=== PATIENT | male | born 1945 | race Caucasian/White ===

== ENCOUNTER → 2017-08-30 15:55 | Outpatient (CLI) | payer MEDICARE, OTHER, SELFPAY ==
[2017-08-30 17:15] LABS: Absolute Lymphocyte Count 2.55 X10^3/ul (0.83-4.51); Absolute Neutrophil Count 5.1 X10^3/uL (2.0-7.7); Basophil# 0.08 X10^3/uL; Basophil% 0.9 % (0-1); Eosinophil# 0.35 X10^3/uL; Eosinophils% 3.8 % (0-5); Hematocrit 47.6 % (40-54); Hemoglobin 15.9 g/dl (13.0-16.5); Lymphocyte # 2.55 X10^3/ul (4.0); Mean Corp Hgb Conc 33.4 g/gl (32-36); Mean Corpuscular Hgb 31.2 pg (27.0-32.0); Mean Corpuscular Volume 93.5 fL (80-94); Mean Platelet Vol. 10.6 fl (6.2-12.0); Monocyte# 0.98 X10^3/uL; Monocyte% 10.7 % (0-10); Neutrophil # 5.12 X10^3/uL (2.7-7.7); Neutrophil % 56.2 % (47-70); Platelet Count 284 K/mm3 (150-450); RBC Distribution Width CV 14.6 % (11.6-14.6); RBC Distribution Width SD 48.3 fl (35.1-43.9); Red Blood Count 5.09 M/mm3 (4.6-6.2); White Blood Count 9.1 K/mm3 (4.4-11.0)
[2017-08-30 17:21] LABS: POSITIVE COUNT NO; POSITIVE DIFFERENTIAL NO; POSITIVE MORPHOLOGY NO
[2017-08-30 17:38] LABS: Vitamin D,25 Hydroxy 29.9 ng/mL (29.95-100.01)
[2017-08-30 17:45] LABS: ALB/GLOB Ratio 0.7 RATIO (0.9-2.4); AST(SGOT) 32 U/L (15-37); Alanine Aminotransfer ALT/SGPT 45 U/L (16-61); Albumin, Serum 3.2 g/dL (3.2-5.0); Alkaline Phosphatase 93 U/L (45-117); Anion Gap 10 (5-15); BUN 13 mg/dL (7-18); BUN/Creat Ratio 11.7 RATIO (10-20); Calcium,Total 8.6 mg/dL (8.5-10.1); Chloride 99 mmol/L (98-107); Creatinine, Serum 1.11 mg/dL (0.70-1.30); EST Glomerular Filtration Rate 69 mL/min (>60); Est Glom Filt Rate - Afr Amer 84 mL/min (>60); Globulin 4.4 g/dL (2.2-4.2); Glucose 201 mg/dL (74-106); Potassium 3.8 mmol/L (3.5-5.1); Protein, Total 7.6 g/dL (6.4-8.2); Sodium Level 134 mmol/L (136-145); Thyroid Stim Hormone (TSH) 0.67 uIU/mL (0.358-3.74); Uric Acid 6.4 mg/dL (3.5-7.2)
[2017-09-01 11:02] LABS: Hep C Antibodies 0.3 s/co ratio (0.0-0.9)
== END ==
PROVIDERS: Family Provider Family Medicine Geriatric Medicine; PCP Family Medicine Geriatric Medicine; Visit Provider Family Medicine Geriatric Medicine
DX: E11.9 Type 2 diabetes mellitus without complications (principal); E55.9 Vitamin D deficiency, unspecified; I10 Essential (primary) hypertension; M10.9 Gout, unspecified; Z13.89 Encounter for screening for other disorder
CPT/HCPCS: 36415; 80053; 82306; 84443; 84550; 85025; 86803

== ENCOUNTER 2018-01-28 10:29 | Emergency (ER) | payer MEDICARE, OTHER, SELFPAY ==
[2018-01-28 10:29] VITALS: BP 139/72; PULSE 56; RESP 14; TEMP 36.1; O2SAT 97; BMI 31.3
--- NOTE | 2018-01-28 10:41 | RAD_ITS ---
STUDY: X-RAY - RIGHT ANKLE REASON FOR EXAM: Male, 72 years old. Pain and swelling following a fall. TECHNIQUE: 4 view(s) of the ankle. COMPARISON: None. FINDINGS: Normal visualized distal tibia and fibula. Normal medial and lateral malleoli. Normal tibiotalar articulation and ankle mortise. Plantar spur. The visualized subtalar, talonavicular, calcaneocuboid and tarsal articulations are normal. Soft tissue swelling. RAD/Ankle min 3 Views IMPRESSION: Plantar spur. Soft tissue swelling. Electronically Signed: Atif Rodriguez MD at 11:05 EDT Tel [phone], Service support ,
--- NOTE | 2018-01-28 10:43 | ED.VISSUMM ---
- ER Visit Summary Date of Service: 01/28/18 Chief Complaint: Patient twisted his ankle about 6 days ago History of Present Illness: The patient is a 72 M with above complaints and localized right ankle pain. He has no other symptoms. No other injuries he has no leg edema no proximal fibular tenderness and no foot pain. Physical Examination: Otherwise unremarkable exam patient has no calf tenderness no edema he has localized swelling both laterally and medially of his right ankle, most of his pain is over the lateral malleolar region. He has no proximal fifth metatarsal tenderness no proximal fibular tenderness. Neurovascularly intact. Emergency Department Course and Treatment: She is unremarkable. Patient will be given an Aircast. He has been able to walk on it all week. Discharge in stable condition Impression: Ankle sprain This note was generated with [employer] dictation software. It may contain incorrect words, spelling, and punctuation that were not noted in review of the chart prior to signing ED Disposition - Plan for ED Patient: Disposition: Home or Assisted Living Chief Complaint: Lower Extremity Injury Instructions: ED Sprain Ankle W X Ray Referrals: Dalton Wliey Chi, MD [Primary Care Provider] - 3-5 Days
--- NOTE | 2018-01-28 10:46 | ED.DCSUM_ITS ---
- ER Visit Summary Date of Service: 01/28/18 Chief Complaint: Patient twisted his ankle about 6 days ago History of Present Illness: The patient is a 72 M with above complaints and localized right ankle pain. He has no other symptoms. No other injuries he has no leg edema no proximal fibular tenderness and no foot pain. Physical Examination: Otherwise unremarkable exam patient has no calf tenderness no edema he has localized swelling both laterally and medially of his right ankle, most of his pain is over the lateral malleolar region. He has no proximal fifth metatarsal tenderness no proximal fibular tenderness. Neurovascularly intact. Emergency Department Course and Treatment: She is unremarkable. Patient will be given an Aircast. He has been able to walk on it all week. Discharge in stable condition Impression: Ankle sprain This note was generated with [employer] dictation software. It may contain incorrect words, spelling, and punctuation that were not noted in review of the chart prior to signing ED Disposition - Plan for ED Patient: Disposition: Home or Assisted Living Chief Complaint: Lower Extremity Injury Instructions: ED Sprain Ankle W X Ray Referrals: Dalton Wiley Chi, MD [Primary Care Provider] - 3-5 Days
--- NOTE | 2018-01-28 11:24 | NURSING ---
NO LW OR POA
== END 2018-01-28 11:53 | disposition home or self-care (01) ==
PROVIDERS: Emergency Provider Emergency Medicine; Family Provider Family Medicine Geriatric Medicine; PCP Family Medicine Geriatric Medicine
DX: S93.401A Sprain of unspecified ligament of right ankle, initial encounter (principal); E11.9 Type 2 diabetes mellitus without complications; I10 Essential (primary) hypertension; E78.00 Pure hypercholesterolemia, unspecified; M10.9 Gout, unspecified; Z79.82 Long term (current) use of aspirin; Z79.84 Long term (current) use of oral hypoglycemic drugs; Z79.899 Other long term (current) drug therapy; X50.1XXA Overexertion from prolonged static or awkward postures, initial encounter; Y93.9 Activity, unspecified; Y92.89 Other specified places as the place of occurrence of the external cause; Y99.8 Other external cause status
CPT/HCPCS: 73610; 99282

== ENCOUNTER → 2018-03-03 09:53 | Outpatient (CLI) | payer MEDICARE, OTHER, SELFPAY ==
[2018-03-03 13:41] LABS: Absolute Lymphocyte Count 1.96 X10^3/ul (0.83-4.51); Absolute Neutrophil Count 6.2 X10^3/uL (2.0-7.7); Basophil# 0.06 X10^3/uL; Basophil% 0.7 % (0-1); Eosinophil# 0.26 X10^3/uL; Eosinophils% 2.8 % (0-5); Hematocrit 45.3 % (40-54); Hemoglobin 14.6 g/dl (13.0-16.5); Lymphocyte # 1.96 X10^3/ul (4.0); Lymphocyte % 21.3 % (19-41); Mean Corp Hgb Conc 32.2 g/gl (32-36); Mean Corpuscular Hgb 29.7 pg (27.0-32.0); Mean Corpuscular Volume 92.1 fL (80-94); Mean Platelet Vol. 10.9 fl (6.2-12.0); Monocyte# 0.71 X10^3/uL; Monocyte% 7.7 % (0-10); Neutrophil # 6.19 X10^3/uL (2.7-7.7); Neutrophil % 67.2 % (47-70); Platelet Count 276 K/mm3 (150-450); Red Blood Count 4.92 M/mm3 (4.6-6.2); White Blood Count 9.2 K/mm3 (4.4-11.0)
[2018-03-03 13:42] LABS: POSITIVE COUNT NO; POSITIVE DIFFERENTIAL NO; POSITIVE MORPHOLOGY NO
[2018-03-03 13:56] LABS: ALB/GLOB Ratio 0.7 RATIO (0.9-2.4); AST(SGOT) 20 U/L (15-37); Alanine Aminotransfer ALT/SGPT 30 U/L (16-61); Albumin, Serum 3.2 g/dL (3.2-5.0); Alkaline Phosphatase 78 U/L (45-117); Anion Gap 11 (5-15); BUN 19 mg/dL (7-18); BUN/Creat Ratio 17.6 RATIO (10-20); Calcium,Total 8.8 mg/dL (8.5-10.1); Chloride 100 mmol/L (98-107); Creatinine, Serum 1.08 mg/dL (0.70-1.30); EST Glomerular Filtration Rate 71 mL/min (>60); Est Glom Filt Rate - Afr Amer 86 mL/min (>60); Globulin 4.4 g/dL (2.2-4.2); Glucose 196 mg/dL (74-106); Potassium 3.7 mmol/L (3.5-5.1); Protein, Total 7.6 g/dL (6.4-8.2); Sodium Level 138 mmol/L (136-145); Thyroid Stim Hormone (TSH) 0.76 uIU/mL (0.358-3.74); Uric Acid 8.5 mg/dL (3.5-7.2)
[2018-03-04 12:04] LABS: Vitamin D,25 Hydroxy 30.3 ng/mL (29.95-100.01)
== END ==
PROVIDERS: Family Provider Family Medicine Geriatric Medicine; PCP Family Medicine Geriatric Medicine; Visit Provider Family Medicine Geriatric Medicine
DX: E11.9 Type 2 diabetes mellitus without complications (principal); E55.9 Vitamin D deficiency, unspecified; I10 Essential (primary) hypertension; M10.9 Gout, unspecified
CPT/HCPCS: 36415; 80053; 82306; 84443; 84550; 85025

== ENCOUNTER 2018-03-30 05:25 | Day surgery (SDC) | payer MEDICARE, OTHER, SELFPAY ==
[2018-03-30] VITALS (8 sets, daily range): BP systolic 134–173; BP diastolic 74–101; PULSE 51–57; RESP 16–18; TEMP 36.6–37.2; O2SAT 92–100; BMI 31.3
--- NOTE | 2018-03-30 | IMM_PTH ---
PATIENT: MARY OBREGON LOC: EN U#:[id number] AGE/SX: 72/M ROOM: RE03/30/[address]: Dr. Mauri Rowell MD : 1945 BED: DIS: 03/30/2018 SPEC #: [id number] RECD: 03/31/18 12:50 STATUS: GEORGE REQ #: [id number] ARA: 03/30/18 00:[address]: Mauri Rowell DEPT: IMMUNOHISTOCHEMISTRY RECD BY: Delaney Juarez ENTERED: 03/31/18 12:51 SP TYPE: IMMUNO OTHR DR: Dr. Dalton Wiley MD Tissues: B - Stomach, NOS Procedures: H Pylori (initial) PHYSICIAN & INSTITUTION [place] [id number] SPECIMEN INFORMATION: Tissue Source: B - Antral biopsy Clinical Info: GERD Specimen Number: [id number] CPT code: 35790 METHODOLOGY: Deparaffinized sections of prefer/formalin-fixed tissue or PAP/DQ stained slides are incubated with monoclonal/polyclonal antibodies/oligonucleotide probes. Localization is made via biotin free immunoperoxidase method. Appropriate controls are performed and reacted as expected. Results on target cell population are indicated in the following table: RESULTS: ANTIBODY / CLONE RESULT Block B H Pylori (polyclonal) negative These tests were developed and their performance characteristics determined by [facility]. They may not have been cleared or approved by the U.S. Food and Drug Administration. The FDA has determined that such clearance or approval is not necessary. INTERPRETATION: B. Antral biopsy: Negative for Helicobacter pylori organisms. SJ:carolann 04/01/18
[2018-03-30 06:01] LABS: Bedside Glucose 134 mg/dL (70-110)
--- NOTE | 2018-03-30 06:30 | EGD_PTH ---
PATIENT: MARY OBREGON LOC: EN U#:[id number] AGE/SX: 72/M ROOM: RE03/30/[address]: Dr. Mauri Rowell MD : 1945 BED: DIS: 03/30/2018 SPEC #: [id number] RECD: 03/30/18 10:11 STATUS: GEORGE OTILIA #: [id number] ARA: 03/30/18 06:[address]: Mauri Rowell DEPT: SURGICAL PATHOLOGY RECD BY: Nancy Spicer ENTERED: 03/30/18 11:30 SP TYPE: EGD BIOPSY OTHR DR: Dr. Dalton Wiley MD Tissues: A - Duodenum, NOS B - Gastric mucous membrane C - Esophagus, NOS D - Esophagus, NOS Procedures: Special Stain Group II Surgery Specimen Level IV Alcian Blue/PAS (control) HEADER OPERATION: EGD (MOD) PRE-OP DIAGNOSIS: GERD TISSUE SUBMITTED: A. Duodenal biopsy, B. Antral biopsy, C. Distal esophagus biopsy, D. Mid esophagus biopsy MICROSCOPIC DIAGNOSIS A. Duodenal biopsy: A fragment of small intestinal mucosa, no pathologic diagnosis. B. Antral biopsy: Mild gastritis. See microscopic description and comment. C. Distal esophagus, biopsy: Fragments of gastric mucosa with focal intestinal metaplasia (goblet cell metaplasia), consistent with Flowers's esophagus. Chronic inflammation. Negative for dysplasia. D. Mid esophagus, biopsy: Fragments of gastroesophageal mucosa with extensive intestinal metaplasia (goblet cell metaplasia), consistent with Flowers's esophagus. Negative for dysplasia. Chronic inflammation. Focal changes consistent with eosinophilic esophagitis. See comment. SJ:carolann 03/31/18 COMMENT B. The results of immunohistochemistry for Helicobacter pylori will be reported separately ([id number]). C & D. Alcian blue/PAS stain with matched control is used in the evaluation of the specimen. D. Increased number of eosinophils (more than 25 per high power field) noted, consistent with eosinophilic esophagitis. Correlation with clinical, endoscopic findings and appropriate follow up are necessary. MICROSCOPIC DESCRIPTION Slides are reviewed. B. The specimen shows fragments of gastric mucosa with chronic inflammatory cell infiltrates in the lamina propria consisting of lymphocytes and plasma cells, consistent with mild chronic gastritis. GROSS DESCRIPTION A - Received in fixative is one container labeled with the patient's name and designated duodenal biopsy. The specimen consists of one irregular fragment of light perdomo soft tissue that measures 0.4 x 0.4 x 0.1 cm. The specimen is totally submitted in one cassette. B - Received in fixative is one container labeled with the patient's name and designated antral biopsy. The specimen consists of multiple irregular fragments of light perdomo soft tissue that in aggregate measure 0.6 x 0.3 x 0.1 cm. The specimen is totally submitted in one cassette. C - Received in fixative is one container labeled with the patient's name and designated distal esophagus biopsy. The specimen consists of three irregular fragments of light perdomo soft tissue that in aggregate measure 0.5 x 0.5 x 0.1 cm. The specimen is totally submitted in one cassette. D - Received in fixative is one container labeled with the patient's name and designated mid esophagus biopsy. The specimen consists of multiple irregular fragments of light perdomo soft tissue that in aggregate measure 1.5 x 0.5 x 0.1 cm. The specimen is totally submitted in one cassette. / SJ:carolann 03/30/18 TC:5 CPT: 10203 x4, 28502 x2
--- NOTE | 2018-03-30 06:51 | OP.ENDO_ITS ---
Patient Name: Koffi Carranza Procedure Date: 03/30/2018 6:14 AM Date of : 1945 Age: 72 Procedure: Upper GI endoscopy Indications: Suspected gastro-esophageal reflux disease Providers: Mauri Rowell MD Referring MD: Mauri Rowell MD Medicines: Midazolam 3 mg IV, Meperidine 75 mg IV Complications: No immediate complications. Procedure: Pre-Anesthesia Assessment: - Prior to the procedure, a History and Physical was performed, and patient medications and allergies were reviewed. The patient's tolerance of previous anesthesia was also reviewed. The risks and benefits of the procedure and the sedation options and risks were discussed with the patient. All questions were answered, and informed consent was obtained. Prior Anticoagulants: The patient has taken aspirin, last dose was 1 day prior to procedure. ASA Grade Assessment: II - A patient with mild systemic disease. After reviewing the risks and benefits, the patient was deemed in satisfactory condition to undergo the procedure. After obtaining informed consent, the endoscope was passed under direct vision. Throughout the procedure, the patient's blood pressure, pulse, and oxygen saturations were monitored continuously. The gastroscope was introduced through the mouth, and advanced to the second part of duodenum. The upper GI endoscopy was accomplished without difficulty. The patient tolerated the procedure well. Moderate Sedation: Moderate (conscious) sedation was personally administered by the endoscopist. The following parameters were monitored: oxygen saturation, heart rate, blood pressure, and response to care. Total physician intraservice time was 15 minutes. Scope In: 6:29:50 AM Scope Out: 6:40:52 AM Total Procedure Duration Time 0 hours 11 minutes 2 seconds Findings: The Z-line was irregular and was found 26 cm from the incisors. Biopsies were taken with a cold forceps for histology. A medium-sized hiatal hernia was present. The esophagus and gastroesophageal junction were examined with white light. There were esophageal mucosal changes consistent with long-segment Flowers's esophagus. These changes involved the mucosa extending to an irregular Z-line (26 cm from the incisors). Circumferential salmon-colored mucosa was present from 26 to 38 cm. This was biopsied with a cold forceps for histology. Diffuse mildly erythematous mucosa without bleeding was found in the gastric antrum. Biopsies were taken with a cold forceps for histology. The examined duodenum was normal. Biopsies were taken with a cold forceps for histology. Impression: - Z-line irregular, 26 cm from the incisors. Biopsied. - Medium-sized hiatal hernia. 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 Biopsied. - Erythematous mucosa in the antrum. Biopsied. - Normal examined duodenum. Biopsied. Recommendation: - Discharge patient to home. - Resume previous diet. - Continue present medications. - Refer to a ship harbor pilot in 2 weeks. - Telephone my office for pathology results in 1 week. Procedure Code(s): --- Professional --- 65234, Esophagogastroduodenoscopy, flexible, transoral; with biopsy, single or multiple 26472, 59, Moderate sedation services provided by the same physician or other qualified health critical care nurse specialist performing the diagnostic or therapeutic service that the sedation supports, requiring the presence of an independent trained observer to assist in the monitoring of the patient's level of consciousness and physiological status; initial 15 minutes of intraservice time, patient age 5 years or older Diagnosis Code(s): --- Professional --- K22.8, Other specified diseases of esophagus K44.9, Diaphragmatic hernia without obstruction or gangrene K31.89, Other diseases of stomach and duodenum CPT copyright 2017 [employer]. All rights reserved. The codes documented in this report are preliminary and upon metal machine setter review may be revised to meet current compliance requirements. Mauri Rowell MD 03/30/2018 6:50:36 AM This report has been signed electronically. Number of Addenda: 0 Note Initiated On: 03/30/2018 6:14 AM
== END 2018-03-30 07:28 | disposition home or self-care (01) ==
LOC: EN 05:27 → AC 05:32
PROVIDERS: Family Provider Family Medicine Geriatric Medicine; PCP Family Medicine Geriatric Medicine; Visit Provider Surgery
PROC: (CPT 43239; principal; 2018-03-30 06:25)
DX: K21.0 Gastro-esophageal reflux disease with esophagitis (principal); K44.9 Diaphragmatic hernia without obstruction or gangrene; K29.70 Gastritis, unspecified, without bleeding; E11.9 Type 2 diabetes mellitus without complications; I10 Essential (primary) hypertension; E07.9 Disorder of thyroid, unspecified; M19.90 Unspecified osteoarthritis, unspecified site; Z79.84 Long term (current) use of oral hypoglycemic drugs; Z79.82 Long term (current) use of aspirin; Z79.899 Other long term (current) drug therapy; Z87.891 Personal history of nicotine dependence; Z86.010 Personal history of colon polyps; Z83.79 Family history of other diseases of the digestive system
CPT/HCPCS: 43239; 82962; 88305; 88313; 88342; 99152; 99153; J7120

== ENCOUNTER → 2018-04-28 10:07 | Outpatient (CLI) | payer MEDICARE, OTHER, SELFPAY ==
[2018-04-28 11:17] LABS: PSA,Total - Annual Screen 0.16 ng/mL (0.00-4.00)
== END ==
PROVIDERS: Family Provider Family Medicine Geriatric Medicine; PCP Family Medicine Geriatric Medicine; Referring Provider Urology; Visit Provider Urology
DX: Z12.5 Encounter for screening for malignant neoplasm of prostate (principal)
CPT/HCPCS: 36415; 84153; G0103

== ENCOUNTER → 2018-08-31 13:24 | Outpatient (CLI) | payer MEDICARE, OTHER, SELFPAY ==
[2018-03-30 05:45] VITALS: BMI 31.3
[2018-08-31 15:15] LABS: Absolute Lymphocyte Count 2.31 X10^3/ul (0.83-4.51); Absolute Neutrophil Count 6.7 X10^3/uL (2.0-7.7); Basophil# 0.07 X10^3/uL; Basophil% 0.7 % (0-1); Eosinophil# 0.24 X10^3/uL; Eosinophils% 2.4 % (0-5); Hematocrit 48.4 % (40-54); Hemoglobin 15.7 g/dl (13.0-16.5); Lymphocyte # 2.31 X10^3/ul (4.0); Lymphocyte % 23.1 % (19-41); Mean Corp Hgb Conc 32.4 g/gl (32-36); Mean Corpuscular Hgb 30.4 pg (27.0-32.0); Mean Corpuscular Volume 93.8 fL (80-94); Mean Platelet Vol. 11.2 fl (6.2-12.0); Monocyte# 0.62 X10^3/uL; Monocyte% 6.2 % (0-10); Neutrophil # 6.69 X10^3/uL (2.7-7.7); Neutrophil % 67.1 % (47-70); POSITIVE COUNT NO; POSITIVE DIFFERENTIAL NO; POSITIVE MORPHOLOGY NO; Platelet Count 270 K/mm3 (150-450); RBC Distribution Width CV 14.2 % (11.6-14.6); RBC Distribution Width SD 48.6 fl (35.1-43.9); Red Blood Count 5.16 M/mm3 (4.6-6.2)
[2018-08-31 15:17] LABS: Vitamin D,25 Hydroxy 18.8 ng/mL (29.95-100.01)
[2018-08-31 15:20] LABS: ALB/GLOB Ratio 0.9 RATIO (0.9-2.4); AST(SGOT) 21 U/L (15-37); Alanine Aminotransfer ALT/SGPT 33 U/L (16-61); Albumin, Serum 3.5 g/dL (3.2-5.0); Alkaline Phosphatase 79 U/L (45-117); Anion Gap 10 (5-15); BUN 18 mg/dL (7-18); BUN/Creat Ratio 15.1 RATIO (10-20); Calcium,Total 8.6 mg/dL (8.5-10.1); Chloride 99 mmol/L (98-107); Creatinine, Serum 1.19 mg/dL (0.70-1.30); EST Glomerular Filtration Rate 64 mL/min (>60); Est Glom Filt Rate - Afr Amer 77 mL/min (>60); Globulin 4.1 g/dL (2.2-4.2); Glucose 211 mg/dL (74-106); Potassium 3.8 mmol/L (3.5-5.1); Protein, Total 7.6 g/dL (6.4-8.2); Sodium Level 137 mmol/L (136-145); Thyroid Stim Hormone (TSH) 1.27 uIU/mL (0.358-3.74); Uric Acid 9.5 mg/dL (3.5-7.2)
== END ==
PROVIDERS: Family Provider Family Medicine Geriatric Medicine; PCP Family Medicine Geriatric Medicine; Visit Provider Family Medicine Geriatric Medicine
DX: E11.9 Type 2 diabetes mellitus without complications (principal); E55.9 Vitamin D deficiency, unspecified; I10 Essential (primary) hypertension; M10.9 Gout, unspecified
CPT/HCPCS: 36415; 80053; 82306; 84443; 84550; 85025

== ENCOUNTER → 2018-10-05 | Outpatient (CLI) | payer MEDICARE, OTHER, SELFPAY ==
[2018-03-30 05:45] VITALS: BMI 31.3
== END | disposition home or self-care (01) ==
PROVIDERS: Family Provider Family Medicine Geriatric Medicine; PCP Family Medicine Geriatric Medicine; Referring Provider Internal Medicine Gastroenterology; Visit Provider Internal Medicine Gastroenterology
DX: R19.7 Diarrhea, unspecified (principal)

== ENCOUNTER → 2018-11-15 | Outpatient (CLI) | payer MEDICARE, OTHER, SELFPAY ==
[2018-03-30 05:45] VITALS: BMI 31.3
== END | disposition home or self-care (01) ==
LOC: PSN 16:00
PROVIDERS: Family Provider Family Medicine Geriatric Medicine; PCP Family Medicine Geriatric Medicine; Referring Provider Family Medicine Geriatric Medicine; Visit Provider Family Medicine Geriatric Medicine
DX: R50.9 Fever, unspecified (principal)
CPT/HCPCS: 87633

== ENCOUNTER → 2019-01-02 | Outpatient (CLI) | payer MEDICARE, OTHER, SELFPAY ==
[2018-12-26 13:32] VITALS: BMI 31.3
--- NOTE | 2019-01-02 09:42 | VDUE_ITS ---
Reason For Study: Swelling Left Proximal Left jugular vein is spontaneous, widely patent, phasic, with no intraluminal echogenicity noted. Left subclavian vein is spontaneous, widely patent, phasic, with no intraluminal echogenicity noted. Left Arm Left axillary vein is spontaneous, patent, phasic, competent, compressible and demonstrates augmentation. Left brachial vein is compressible. Left cephalic vein is compressible. Left basilic vein is compressible. Left Lower Arm Left radial vein is compressible. Left ulnar vein is compressible. Interpretation Summary No evidence for acute deep venous thrombosis[left] upper extremity with patent and compressible cephalic and basilic veins. Ordering Physician: Mauri Rowell Referring Physician: Dalton Wiley Chi Performed By: Lexis Farnsworth RVT ?
== END | disposition home or self-care (01) ==
LOC: CVS 09:41
PROVIDERS: Family Provider Family Medicine Geriatric Medicine; PCP Family Medicine Geriatric Medicine; Referring Provider Surgery; Visit Provider Surgery
DX: M79.89 Other specified soft tissue disorders (principal)
CPT/HCPCS: 93971

== ENCOUNTER → 2019-01-10 | Outpatient (CLI) | payer MEDICARE, OTHER, SELFPAY ==
[2019-01-05 10:17] VITALS: BMI 31.3
--- NOTE | 2019-01-10 07:12 | CT_ITS ---
STUDY: CT ABDOMEN AND PELVIS WITH CONTRAST REASON FOR EXAM: Male, 73 years old. Change in bowel habits. Left lower quadrant pain. RADIATION DOSAGE (If Supplied By Facility): CTDIvol = ( 19.33 ) mGy, DLP = ( 2076.45 ) mGycm TECHNIQUE: Transaxial images were obtained from the dome of the diaphragm to the symphysis pubis with oral contrast. 100 IV/Oral Isovue 250 was administered. Sagittal and coronal images were reconstructed. Individualized dose optimization techniques were used for this CT. COMPARISON: None. FINDINGS: The visualized lung bases are unremarkable. Coronary artery calcification. There is decreased attenuation of the liver consistent with steatosis. The patient is status post cholecystectomy. Normal spleen. Normal pancreas. Normal bilateral adrenal glands. There is a 4.3 cm Bard 4.2 cm cyst in the upper pole of the right kidney. There is also evidence of a 2.4 cm x 2.2 cm cyst in the anterior midpole of the right kidney. There is a 2.3 cm x 3 cm cyst in the upper pole of the left kidney. Normal visualized stomach. Normal small intestine. There are multiple colonic diverticula consistent with diverticulosis. The patient is status post appendectomy. There is scattered atherosclerotic calcification of the abdominal aorta, without a demonstrated aneurysm. Normal inferior vena cava. Normal retroperitoneum. Normal urinary bladder. The patient is status post TURP. There is a small umbilical hernia containing fat. Moderate-sized left inguinal hernia contains nonobstructed small bowel loops. Small right inguinal hernia containing fat. There are diffuse degenerative changes of the visualized lumbar spine. CT/Abdomen/Pelvis WITH Contrast IMPRESSION: Fatty infiltration of the liver. Bilateral renal cysts. Diffuse sigmoid diverticulosis. Electronically Signed: Atif Rodriguez, at 8:23 EDT , Service support ,
[2019-01-10 07:25] LABS: CREATININE FINGERSTICK 1.1 mg/dL (0.70-1.30); EGFR FINGERSTICK > 60.0000 mL/min (>60)
== END | disposition home or self-care (01) ==
LOC: CT 07:11
PROVIDERS: Family Provider Family Medicine Geriatric Medicine; PCP Family Medicine Geriatric Medicine; Referring Provider Surgery; Visit Provider Surgery
DX: R10.32 Left lower quadrant pain (principal); R19.4 Change in bowel habit
CPT/HCPCS: 74177; Q9967

== ENCOUNTER 2019-01-24 08:43 | Day surgery (SDC) | payer MEDICARE, OTHER, SELFPAY ==
--- NOTE | 2019-01-05 03:14 | HP_ITS ---
Intake Vital Signs 01/05/19 Body Mass Index (BMI) 31.3 01/05/19 Height 5 ft 10 in 01/05/19 Weight: 211 lb 01/05/19 Body Mass Index (BMI) 30.2 01/05/19 Blood Pressure 145/83 H 01/05/19 Blood Pressure Location Rt brachial 01/05/19 Blood Pressure Position Sitting 01/05/19 Respiratory Rate 16 01/05/19 Pulse Rate 58 L 01/05/19 Pulse Source Monitor 01/05/19 Temperature 98.2 F 01/05/19 Temperature Source Oral 01/05/19 Pulse Ox 95 01/05/19 Oxygen Delivery Method room air Intake Visit Reasons: discuss surgery/US Chief Complaint: Follow up Hotel Night Auditor Required: No Is patient in pain?: No (Abdominal cramping on and off) Allergies adhesive Allergy (Verified 01/05/19 10:16) Rash lisinopril Adverse Reaction (Verified 01/05/19 10:16) Other losartan [Losartan] Adverse Reaction (Verified 01/05/19 10:16) Other Medications Amlodipine [Norvasc] 5 mg PO DAILY 10/13/13 [History Confirmed 01/05/19] Lisinopril/Hydrochlorothiazide [Zestoretic 20/25 Tablet] 1 tab PO LUNCH 10/13/13 [History Confirmed 01/05/19] Metoprolol Tartrate [Lopressor (beta parvez)] 25 mg PO BID 10/13/13 [History Confirmed 01/05/19] metFORMIN HCl [Glucophage] 500 mg PO BIDCM 10/13/13 [History Confirmed 01/05/19] Levothyroxine Sodium [Synthroid] 125 mcg PO DAILY 01/28/18 [History Confirmed 01/05/19] atorvastatin 10 mg tablet 10 mg PO DAILY 90 Days #90 01/28/18 [History Confirmed 01/05/19] vit C,E,zinc,Zn-upepe-8-lutein-zeaxanthin 250 mg-2.5 mg-0.5 mg capsule 1 cap PO DAILY 01/28/18 [History Confirmed 01/05/19] calcitriol 0.25 mcg capsule 0.25 mcg PO Q OTHER DAY 03/15/18 [History Confirmed 01/05/19] escitalopram 10 mg tablet 10 mg PO DAILY 03/15/18 [History Confirmed 01/05/19] famotidine 40 mg tablet 40 mg PO QHS tab 03/15/18 [History Confirmed 01/05/19] cholecalciferol (vitamin D3) 1,000 unit capsule 1,000 unit PO DAILY 12/26/18 [History Confirmed 01/05/19] flaxseed oil 1,000 mg capsule 1,000 mg PO DAILY 12/26/18 [History Confirmed 01/05/19] PFSH Medical History Superficial thrombophlebitis of arm (Acute) GERD (gastroesophageal reflux disease) (Chronic) Hematoma (Resolved) Thyroid disease (Chronic) Diabetes (Chronic) Arthritis (Chronic) HTN (hypertension) (Chronic) Surgical History Hx of colonoscopy (Resolved) Hx of rhinoplasty (Resolved) History of prostate surgery (Resolved) History of cholecystectomy (Resolved) History of thyroidectomy (Resolved) History of appendectomy (Resolved) Family History Father Heart disease Mother Heart disease Hypertension Brother Flowers's esophagus Esophageal cancer Heart disease Daughter Flowers's esophagus Other Blindness Social History (Updated 01/05/19 @ 15:14 by Mauri Rowell MD) Smoking Status: Former smoker second hand exposure: No alcohol intake: never substance use type: does not use caffeine: Yes what type of physical activity do you participate in: walking frequency: daily seatbelt use: always HPI HPI HPI: MARY OBREGON, is a 73 M who presents to the office today for HPI HPI Surgical H&P: Yes HPI: MARY OBREGON, is a 73 M who presents to the office today for surgical consultation regarding the 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 It is of note that I did pursue a left upper extremity venous duplex exam on January 02, 2019. This did not demonstrate any evidence of any deep extension of this process it appeared to be focally placed. The superficial area measures 4.5 x 2 cm A secondary problem however has occurred. The patient states for the last 6 to 7 months he has had a change of bowel habits with 5-6 bowel movements daily occasionally intermittently darker in color. He has low abdominal pain which is partially relieved with defecation. There is not been any real fever or chills or sweats. His most recent colonoscopy was September 17, 2015. I performed that utilizing 5 mg of Versed and 100 mg of Demerol. The procedure was considered moderately difficult due to the degree of diverticular disease. Internal hemorrhoids were noted. Multiple diverticula noted throughout the bowel. Dating back to August 31, 2014 at that time his colonoscopy bowel prep was poor. Dating back to July 31, 2011 bowel preparation was fair with a tortuous colon and severe severe diverticular disease. There is a polyp in the cecum and a polyp in the proximal sigmoid. Both of those were tubular adenoma. The patient states that several months ago he was seen [place] by sprinkler helper. He did have a EGD at that time demonstrating 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. Patient thinks that he was prescribed Imodium to assist with his diarrhea. A colonoscopy was not pursued at that time ROS General General: No weight change, appetite, fatigue, colon cancer, breast cancer or weakness HEENT HEENT: Yes eye injury and eye surgery; no difficulty swallowing, swollen glands or hoarseness Endo Endocrine: Yes thyroid disease and diabetes mellitus; no thyroid cancer, Hair loss, heat intolerance or cold intolerance Skin Skin: No rash or changing moles Breast Breast: No left breast lump, right breast lump, nipple discharge, breast pain, abnormal mammogram, abnormal US or breast enlargement Musc Musculoskeletal: Yes arthritis and gout; no back problems, rheumatoid arthritis or joint pain Cardio Cardiovascular: Yes high blood pressure; no murmur, pacemaker, heart disease, atrial fibrillation, heart attack, heart stent, palpitations, shortness of breat with exertion or chest pain Psych Psychiatric: No depression, anxiety or hearing voices Resp Respiratory: No shortness of breath, Yes sleep apnea, No cough, No COPD, No asthma, No emphysema, No wheezing Gastro Gastrointestinal: No abdominal pain, No nausea or vomiting, No diarrhea, No constipation, No blood in stool, Yes acid reflux, Yes hemorrhoids, No ulcers, No gallbladder problem, No black,tarry stools Aaron Hematologic: No blood thinners, No blood disorders, No bleeding, No anemia, No blood clots Neuro Neurologic: No weakness Exam Const General: cooperative, healthy appearing, comfortable Nutritional Appearance: overweight Orientation: alert, awake, oriented x3 HENMT Other: Darker glasses worn secondary to visual sensitivity Chest Breast Palpation: No nipple discharge Resp Effort & Inspection: normal respiratory effort Auscultation: clear to auscultation bilaterally Cardio Rate: regular rate Rhythm: regular rhythm Heart Sounds: no murmurs GI Palpation: soft, no hepatosplenomegaly Other: Mild tenderness to deep palpation left lower quadrant with slight fullness but not distinct mass Skin General: no rashes or lesions noted Neuro General: alert, awake, oriented x3 Extrem General: no calf tenderness bilaterally Other: Left antecubital space medially placed 4.5 x 2 cm conglomerate of superficial veins palpable cords seemingly thrombosed Psych Affect: normal affect Assessment & Plan Problems 1. Superficial thrombophlebitis of left upper extremity I80.8 2. Change in bowel habit R19.4 Plan Thrombosed superficial varicosity medial left antecubital space likely associated with a AVM. I have offered the patient complete excision of this area but this would need to be performed in the operating room. I believe I could address that with monitored anesthesia care and local anesthetic. However on today's visit the patient confides about the lower abdominal pain and change of bowel habits with increased frequency stools occasionally dark. It is not clear to me whether he could possibly have acute diverticulitis. I recommend that we obtain a CT scan of the abdomen and pelvis. I recommend colonoscopy with possible biopsy or polypectomy. The patient has a history of poor bowel prep. We will proceed with a 2-day bowel prep. We will proceed with monitored anesthesia care. I appreciate the ongoing opportunity of assisting with her surgical care CC: Dr. Saurabh Rowell M.D., F.A.C.S. Orders Orders: Colonoscopy Today R19.4 Abdomen/Pelvis WITH Contrast Today R10.32, R19.4 Coding Level of Care Code Off vis,est,level 2 Diagnoses Superficial thrombophlebitis of left upper extremity I80.8 ??Laterality: left Change in bowel habit R19.4 01/05/19 5424 <Electronically signed by Mauri aguilar MD> Date _ Mauri Rowell MD I have re-examined the patient. There are no clinical changes since date of exam.
[2019-01-05 10:17] VITALS: BMI 31.3
[2019-01-24 09:02] VITALS: BP 155/81; PULSE 57; RESP 16; TEMP 36.9; O2SAT 99; BMI 32.3
[2019-01-24 09:41] LABS: Bedside Glucose 139 mg/dL (70-110)
[2019-01-24 10:38] VITALS: BP 104/75; BP 155/81; PULSE 66; RESP 16; TEMP 37; O2SAT 93
--- NOTE | 2019-01-24 10:38 | OP.ENDO_ITS ---
01/24/2019 Dalton Wiley MD [address] [place] [address] Re : Colonoscopy procedure for Koffi Farsonia Dear Dr. Wiley This procedure was performed on Thursday, January 24, 2019. My impressions and recommendations are as follows: Impressions : - Non-thrombosed external hemorrhoids, non-thrombosed internal hemorrhoids and internal hemorrhoids that prolapse with straining, but spontaneously regress to the resting position (Grade II) found on digital rectal exam. - Diverticulosis in the entire examined colon. Extraordinarily extensive diverticulosis - No specimens collected. Recommendations : - Discharge patient to home. - Resume previous diet. - Continue present medications. - Repeat colonoscopy in 10 years for screening purposes. - Return to my office in 3 days. My findings are described in the full procedure note, which is enclosed. If I can be of further assistance, please feel free to contact me at Doctor phone number(s): Work: . Sincerely, Mauri Rowell MD 01/24/2019 10:38:12 AM This report has been signed electronically.
[2019-01-24 10:43] VITALS: BP 121/68; BP 155/81; PULSE 62; RESP 16; O2SAT 97
[2019-01-24 10:48] VITALS: BP 120/78; BP 155/81; PULSE 60; RESP 16; O2SAT 93
[2019-01-24 10:50] VITALS: BP 123/71; BP 155/81; PULSE 62; RESP 16; TEMP 36.2; O2SAT 95
[2019-01-24 11:22] VITALS: BP 155/81
== END 2019-01-24 11:22 | disposition home or self-care (01) ==
LOC: EN 08:44 → AC 08:45
PROVIDERS: Family Provider Family Medicine Geriatric Medicine; PCP Family Medicine Geriatric Medicine; Referring Provider Family Medicine Geriatric Medicine; Visit Provider Surgery
PROC: 0DJD8ZZ Inspection of Lower Intestinal Tract, Via Natural or Artificial Opening Endoscopic (ICD-10-PCS; CPT 45378; principal; 2019-01-24 09:55)
DX: K57.30 Diverticulosis of large intestine without perforation or abscess without bleeding (principal); K64.1 Second degree hemorrhoids; K64.8 Other hemorrhoids; K21.9 Gastro-esophageal reflux disease without esophagitis; E11.9 Type 2 diabetes mellitus without complications; I10 Essential (primary) hypertension; M19.90 Unspecified osteoarthritis, unspecified site; E07.9 Disorder of thyroid, unspecified; Z87.891 Personal history of nicotine dependence; Z86.718 Personal history of other venous thrombosis and embolism; Z79.84 Long term (current) use of oral hypoglycemic drugs; Z79.899 Other long term (current) drug therapy
CPT/HCPCS: 45378; 82962; J7120; J2405

== ENCOUNTER → 2019-03-15 | Outpatient (CLI) | payer MEDICARE, OTHER, SELFPAY ==
[2019-03-09 10:12] VITALS: BMI 31.8
[2019-03-15 09:41] LABS: AST(SGOT) 20 U/L (15-37); Alanine Aminotransfer ALT/SGPT 25 U/L (16-61); Albumin, Serum 3.3 g/dL (3.2-5.0); Alkaline Phosphatase 77 U/L (45-117); Bilirubin, Direct 0.21 mg/dL (0.00-0.30); Cholesterol 134 mg/dL (200); Globulin 4.3 g/dL (2.2-4.2); High Density Lipoprotein 44 mg/dL; Protein, Total 7.6 g/dL (6.4-8.2); Triglycerides 83 mg/dL; Very Low Density Lipoprotein 17 mg/dL (5-40)
== END | disposition home or self-care (01) ==
LOC: LAB 08:18
PROVIDERS: Family Provider Family Medicine; PCP Family Medicine; Referring Provider Internal Medicine Cardiovascular Disease; Visit Provider Internal Medicine Cardiovascular Disease
DX: I25.10 Atherosclerotic heart disease of native coronary artery without angina pectoris (principal)
CPT/HCPCS: 36415; 80061; 80076

== ENCOUNTER 2019-03-21 05:20 | Day surgery (SDC) | payer MEDICARE, OTHER, SELFPAY ==
[2019-01-30 14:54] VITALS: BMI 32.3
--- NOTE | 2019-03-15 08:35 | EKG12_ITS ---
Test Reason : PRE-OP Blood Pressure : / mmHG Vent. Rate : 061 BPM Atrial Rate : 061 BPM P-R Int : 240 ms QRS Dur : 086 ms QT Int : 430 ms P-R-T Axes : 007 -03 -07 degrees QTc Int : 432 ms Sinus rhythm with 1st degree A-V block ST & T wave abnormality, consider inferior ischemia Abnormal ECG Confirmed by RONALD THORPE, JOSHUA ([id number]), loan expeditor MALCOM LOPEZ ([id number]) on 03/17/2019 1:56:09 PM Referred By: Mauri Rowell Confirmed By:DERRICK CARDENAS MD
[2019-03-15 08:48] LABS: Hemoglobin 15.4 g/dL (13.0-16.5); Mean Corp Hgb Conc 33.5 g/dL (32-36); Mean Corpuscular Hgb 31.2 pg (27.0-32.0); Mean Corpuscular Volume 93.3 fL (80-94); Mean Platelet Vol. 10.4 fl (6.2-12.0); Platelet Count 261 K/mm3 (150-450); RBC Distribution Width CV 13.3 % (11.6-14.6); RBC Distribution Width SD 45.9 fl (35.1-43.9); Red Blood Count 4.93 M/mm3 (4.6-6.2); White Blood Count 9.8 K/mm3 (4.4-11.0)
[2019-03-15 09:24] LABS: Anion Gap 8 (5-15); BUN 17 mg/dL (7-18); BUN/Creat Ratio 14.4 RATIO (10-20); Calcium,Total 8.7 mg/dL (8.5-10.1); Chloride 102 mmol/L (98-107); Creatinine, Serum 1.18 mg/dL (0.70-1.30); EST Glomerular Filtration Rate 64 mL/min (>60); Est Glom Filt Rate - Afr Amer 78 mL/min (>60); Glucose 156 mg/dL (74-106); Hemoglobin A1c 7.3 % (4.2-6.3); Potassium 3.7 mmol/L (3.5-5.1); Sodium Level 139 mmol/L (136-145); Thyroid Stim Hormone (TSH) 0.63 uIU/mL (0.358-3.74)
--- NOTE | 2019-03-16 01:21 | HP_ITS ---
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 Is patient in pain?: No Allergies adhesive Allergy (Verified 03/16/19 08:35) Rash lisinopril Adverse Reaction (Verified 03/16/19 08:35) Other losartan [Losartan] Adverse Reaction (Verified 03/16/19 08:35) Other Medications Amlodipine [Norvasc] 5 mg PO DAILY 10/13/13 [History Confirmed 03/16/19] Lisinopril/Hydrochlorothiazide [Zestoretic Tablet] 1 tab PO LUNCH 10/13/13 [History Confirmed 03/16/19] Metoprolol Tartrate [Lopressor (beta parvez)] 25 mg PO BID 10/13/13 [History Confirmed 03/16/19] metFORMIN HCl [Glucophage] 500 mg PO BIDCM 10/13/13 [History Confirmed 03/16/19] Levothyroxine Sodium [Synthroid] 125 mcg PO DAILY 01/28/18 [History Confirmed 03/16/19] vit C,E,zinc,Sn-zqwzq-3-lutein-zeaxanthin 250 mg-2.5 mg-0.5 mg capsule 1 cap PO BID 01/28/18 [History Confirmed 03/16/19] calcitriol 0.25 mcg capsule 0.25 mcg PO MOWEFR 03/15/18 [History Confirmed 03/16/19] cholecalciferol (vitamin D3) 1,000 unit capsule 1,000 unit PO DAILY 12/26/18 [History Confirmed 03/16/19] flaxseed oil 1,000 mg capsule 1,000 mg PO DAILY 12/26/18 [History Confirmed 03/16/19] Pantoprazole Sodium [Protonix] 40 mg PO DAILY 01/20/19 [History Confirmed 03/16/19] tamsulosin 0.4 mg capsule 0.4 mg PO DAILY #14 cap 02/20/19 [Rx Confirmed 03/16/19] [facility] Medical History Nonobstructive atherosclerosis of coronary artery (Chronic) Essential (primary) hypertension (Chronic) AMD (age related macular degeneration) (Chronic) Arthritis (Chronic) Calf tenderness (Chronic) GERD (gastroesophageal reflux disease) (Chronic) Inguinal hernia bilateral, non-recurrent (Chronic) Superficial thrombophlebitis of arm (Chronic) Thyroid disease (Chronic) Type 2 diabetes mellitus (Chronic) Vision loss (Chronic) Hematoma (Resolved) Medial ankle sprain (Resolved) Change in bowel habit (Inactive) Surgical History History of appendectomy (Resolved) History of cholecystectomy (Resolved) History of left heart catheterization (Resolved 2000) History of prostate surgery (Resolved) History of thyroidectomy (Resolved) Hx of colonoscopy (Resolved) Hx of rhinoplasty (Resolved) Family History Father Heart disease Mother Heart disease Hypertension Brother Flowers's esophagus Esophageal cancer Heart disease Daughter Flowers's esophagus Other Blindness Social History (Updated 03/16/19 @ 13:21 by Maryjane Ewing PA-C) Smoking Status: Former smoker second hand exposure: No alcohol intake: never substance use type: does not use caffeine: Yes what type of physical activity do you participate in: walking frequency: daily seatbelt use: always HPI HPI HPI: MARY OBREGON, is a 73 M who presents to the office today for HPI HPI Surgical H&P: Yes HPI: MARY OBREGON, is a 73 M who presents to the office today for an update history and physical for an upcoming procedure. Patient denies recent hospitalizations or illnesses. Patient denies previous myocardial infarction, stroke or blood clots. He denies previous complications with anesthesia. Patient's previous history per Dr. Rowell: MARY OBREGON, is a 73 M who presents to the office today for ongoing surgical consultation regarding abdominal pain. The patient initially presented to me concerned about recurrence of the left antecubital upper arm superficial AVM. I obtained a duplex imaging of this which did not demonstrate any deep extent but did demonstrate thrombosis of the area. I recommended conservative management. In the interim his suggested to him to remind me that he was having lower abdominal pain particularly left lower quadrant. On January 24, 2019 I did a colonoscopy which showed internal and external hemorrhoids are reducible. Diverticulosis of the entire colon but no evidence of acute inflammation. I also obtained a CT scan of the abdomen and pelvis. This was obtained on January 10. It demonstrated right renal cyst. Evidence of previous TURP. A small umbilical hernia with fat. Moderate sized left anal hernia containing nonobstructed small bowel. A small right inguinal hernia. Fatty changes of the liver. He returns today in follow-up of that finding ROS General General: No weight change, appetite, fatigue, colon cancer, breast cancer or weakness HEENT HEENT: Yes eye injury and eye surgery; no difficulty swallowing, swollen glands or hoarseness Endo Endocrine: Yes thyroid disease and diabetes mellitus; no thyroid cancer, Hair loss, heat intolerance or cold intolerance Skin Skin: No rash or changing moles Breast Breast: No left breast lump, right breast lump, nipple discharge, breast pain, abnormal mammogram, abnormal US or breast enlargement Musc Musculoskeletal: Yes arthritis and gout; no back problems, rheumatoid arthritis or joint pain Cardio Cardiovascular: Yes high blood pressure; no murmur, pacemaker, heart disease, atrial fibrillation, heart attack, heart stent, palpitations, shortness of breat with exertion or chest pain Psych Psychiatric: No depression, anxiety or hearing voices Resp Respiratory: No shortness of breath, Yes sleep apnea, No cough, No COPD, No asthma, No emphysema, No wheezing Gastro Gastrointestinal: No abdominal pain, No nausea or vomiting, No diarrhea, No constipation, No blood in stool, Yes acid reflux, Yes hemorrhoids, No ulcers, No gallbladder problem, No black,tarry stools Aaron Hematologic: No blood thinners, No blood disorders, No bleeding, No anemia, No blood clots Neuro Neurologic: No weakness Exam Const General: cooperative, healthy appearing, comfortable, no acute distress [facility] Head: normal to inspection Eyes General: appearance normal, both eyes and all related structures Neck Neck: normal visual inspection Neck mass: No Chest Breast Palpation: No nipple discharge Resp Effort & Inspection: normal respiratory effort Auscultation: clear to auscultation bilaterally Cardio Rate: regular rate Rhythm: regular rhythm Heart Sounds: no murmurs GI Inspection: normal to inspection Palpation: soft, hernia (umbilical and bilateral inguinal hernias) Auscultation: normal bowel sounds Skin General: no rashes or lesions noted Lesions: no lesions Neuro General: no focal motor deficits, CN's II-XI intact bilaterally Extrem General: normal to inspection Psych Appearance: grossly normal Affect: normal affect Assessment & Plan Problems 1. Umbilical hernia without obstruction and without gangrene K42.9 2. Bilateral inguinal hernia without obstruction or gangrene, recurrence not specified K40.[address] Rowell will plan to perform a laparoscopic umbilical and bilateral inguinal hernia repair with mesh. Procedure details, risks and benefits have been explained. Patient has had the opportunity to ask and have questions answered. Patient verbally understands and agrees with the plan. Coding Level of Care Code No Charge Diagnoses Umbilical hernia without obstruction and without gangrene K42.9 ??Obstruction and gangrene presence: without obstruction or gangrene Bilateral inguinal hernia without obstruction or gangrene, recurrence not specified K40.20 ??Obstruction and gangrene presence: without obstruction or gangrene ??Recurrence: not specified as recurrent Comment Update H&P 03/16/19 1321 <Electronically signed by Maryjane porter PA-C> Date _ Maryjane Ewing PA-C I have re-examined the patient. There are no clinical changes since date of exam.
[2019-03-16 08:35] VITALS: BMI 31.8
[2019-03-21] VITALS (7 sets, daily range): BP systolic 105–128; BP diastolic 47–79; PULSE 16–74; RESP 16; TEMP 36.3–36.7; O2SAT 92–98; BMI 31.7
[2019-03-21] MEDS: Lactated Ringers 1,000 ML 100 ML IV ×2 (06:30→09:30)
[2019-03-21 06:41] LABS: Bedside Glucose 164 mg/dL (70-110)
--- NOTE | 2019-03-21 06:44 | DCINST_ITS ---
Discharge Diet: Light diet - advance as tolerated - if you have questions about your diet instructions, please talk to you doctor. Discharge Activity: May Not Drive - for 3-5 days or while taking narcotic pain medicine. May shower in (days): 1 Lifting Restrictions: 10 pounds Call your doctor if your incision/area has: Continuous Slow Oozing, Sudden Increased Bleeding, Increased Pain/ Swelling, Increased Redness, Foul Smelling Discharge Call your doctor if you observe: Fever of 101 or Higher Suture Line Care: Avoid Pulling/Pushing, Avoid Pinching/Bending Additional Dressing/Incision Instructions:: Change or remove dressing in 4 days. Leave steri-strips in place for 1 week. Allergies/Adverse Reactions: Allergies adhesive Allergy (Verified 03/16/19 08:35) Rash lisinopril Adverse Reaction (Verified 03/16/19 08:35) Other CONSTANT COUGH losartan [Losartan] Adverse Reaction (Verified 03/16/19 08:35) Other CONSTANT COUGH Medications to take at Discharge RX: Amlodipine [Norvasc] 5 mg PO DAILY 10/13/13 RX: Lisinopril/Hydrochlorothiazide [Zestoretic 20/25 Tablet] 1 tab PO LUNCH 10/13/13 RX: Metoprolol Tartrate [Lopressor (beta parvez)] 25 mg PO BID 10/13/13 RX: metFORMIN HCl [Glucophage] 500 mg PO BIDCM 10/13/13 Levothyroxine Sodium [Synthroid] 125 mcg PO DAILY 01/28/18 vit C,E,zinc,Zi-mthew-4-lutein-zeaxanthin 250 mg-2.5 mg-0.5 mg capsule 1 cap PO BID 01/28/18 calcitriol 0.25 mcg capsule 0.25 mcg PO MOWEFR 03/15/18 cholecalciferol (vitamin D3) 1,000 unit capsule 1,000 unit PO DAILY 12/26/18 flaxseed oil 1,000 mg capsule 1,000 mg PO DAILY 12/26/18 Pantoprazole Sodium [Protonix] 40 mg PO DAILY 01/20/19 tamsulosin 0.4 mg capsule 0.4 mg PO DAILY #14 cap 03/20/19 Orders to be completed after discharge: 12 Lead EKG [CVS] Time Frame: 03/14/19, Facility: [facility], Location: Cardiovascular Services Basic Metabolic Profile (BMP) Time Frame: 03/14/19, Facility: [facility], Location: Laboratory CBC-Complete Blood Cnt No Diff Time Frame: 03/14/19, Facility: [facility], Location: Laboratory Hemoglobin A1c Time Frame: 03/14/19, Facility: [facility], Location: Laboratory Thyroid Stim Hormone (TSH) Time Frame: 03/14/19, Facility: [facility], Location: Laboratory Primary Care Physician: Brandon Neves MD [Primary Care Provider] - Test Results: Test results from this visit will be discussed in further detail at your follow- up appointment, if applicable. Please Follow Up With: Mauri Rowell MD - [phone] When: Call to make an appointment to be seen in about 10 days.
[2019-03-21] MEDS: Cefazolin 2 GM in 0.9% Normal Saline 100 ML IV (07:10)
--- NOTE | 2019-03-21 07:15 | HERN_PTH ---
PATIENT: MARY OBREGON LOC: [facility] [place] U#:[id number] AGE/SX: 73/M ROOM: RE03/21/[address]: Dr. Mauri Rowell MD : 1945 BED: DIS: 03/21/2019 SPEC #: [id number] RECD: 03/21/19 09:43 STATUS: GEORGE RELenka #: [id number] ARA: 03/21/19 07:[address]: Mauri Rowell DEPT: SURGICAL PATHOLOGY RECD BY: Jerome Myles ENTERED: 03/21/19 13:33 SP TYPE: Hernia OTHR DR: Dr. Brandon Neves MD Tissues: HERNIA Procedures: Surgery Specimen Level II HEADER OPERATION: Laparoscopic inguinal hernia repair PRE-OP DIAGNOSIS: Umbilical hernia without obstruction or gangrene; bilateral inguinal hernia without obstruction or gangrene TISSUE SUBMITTED: Hernia sac MICROSCOPIC DIAGNOSIS Hernia sac: A piece of fibroadipose tissue, consistent with hernia sac. MICKY:carolann 03/22/19 MICROSCOPIC DESCRIPTION Slides are reviewed. GROSS DESCRIPTION Received in fixative is one container labeled with the patient's name and designated hernia sac. The specimen consists of an irregular piece of yellow adipose tissue measuring 5 x 2.5 x 1 cm. No mass lesion is identified. Russian Language Instructor sections are submitted in one cassette. / MICKY:carolann 03/21/19 TC:5 [facility]: [id number]
--- NOTE | 2019-03-21 09:19 | OP.PCM_ITS ---
Problem List (1) Bilateral inguinal hernia Status: Acute Qualifiers: Obstruction and gangrene presence: without obstruction or gangrene Recurrence: non-recurrent Qualified Code(s): K40.20 - Bilateral inguinal hernia, without obstruction or gangrene, not specified as recurrent (2) Umbilical hernia without mention of obstruction or gangrene Status: Acute Qualifiers: Obstruction and gangrene presence: without obstruction or gangrene Qualified Code(s): K42.9 - Umbilical hernia without obstruction or gangrene Report of Operation Date of Procedure: 03/21/19 Pre-Operative Diagnosis: Bilateral inguinal hernias with sliding sigmoid colon component on the left. Umbilical hernia Post-Operative Diagnosis: Same Surgery/Procedure Performed:: Laparoscopic bilateral inguinal herniorrhaphy. Umbilical herniorrhaphy was 6.4 cm ventralex mesh. Left mesh Bard 3 DMax lot number [id number]. Reference #[id number]. Expiry date 09/23/2023. Right mesh Bard 3 DMax. Lot number [id number]. Reference #[id number]. Expiry date 11/23/2023. Ventralex ST hernia patch 6.4 cm diameter. Lot number [id number]. Reference #[id number]. Expiry date 11/22/2020 Description of Surgical Findings:: Timeout and informed consent was obtained. 73-year-old gent was taken out from placement table underwent general endotracheal intubation anesthesia. Ancef 2 g given intravenous preoperatively. The abdomen was sterilely prepped and draped. 0.5% Marcaine was used as a local anesthetic. Skin sites were pre- anesthetized. Throughout the procedure total 30 cc was used. A vertical incision was made in the inferior portion of the umbilicus. The patient is noted to be significantly overweight. Sharp dissection carried down through the subcutaneous tissue. The umbilical hernia was identified holding sutures of [address] it was sharply circumferentially dissected free. The hernia sac was then amputated with electrocautery. That specimen was submitted for analysis. And the son catheter was inserted. The abdomen was insufflated with CO2 to pressure of 10 mmHg pressure. 5 mm trochars were placed in the right left lower quadrants. Ileal inguinal nerve blocks were performed under laparoscopic visualization however this was extraordinarily challenging secondary to the degree of preperitoneal fat in the groin area.. Patient had evidence of a sliding indirect left inguinal hernia involving the sigmoid colon. The cecum was low-lying on the right but not involved in that indirect hernia. I initially started dissection on the right incised the peritoneum superior lateral to the internal ring and started dissection however it became apparent extraordinarily quickly that the anatomy was very difficult to identify because of the degree of preperitoneal fat. I had to continue with blunt dissection the inferior epigastric vessels wanted to be in occluded head to encourage him to stay up against the abdominal wall. Hemostasis was obtained where needed was simply with suction that dissection then had to be halted so I could perform the dissection on the left again the peritoneum superior lateral to the internal ring was incised the colon was reduced but this dissection on the left was extraordinarily difficult so much preperitoneal fat that anatomy differentiation was very difficult we bluntly dissected free and continued to work free until I can get down the pubic tubercle I then changed back over to the right and continued with that blunt dissection until I was sure I had the urinary bladder posteriorly I had the pubic tubercle I was able to gain access from both the right and the left. Was able to identify the internal ring then carefully dissected the peritoneum free so as to be able to invert it to allow for placement of the mesh. Having finally achieved that bilaterally I placed both a large 3D max mesh on the left and one on the right. The overlapped at the middle with Misa was able to get them to lie flat and cover the critical positions. I felt that I had good positioning of the mesh at the completion I secured it with secure strap laterally superiorly and medially. At the completion there appeared to be good coverage of the defect area. I then approximated the peritoneum to itself using the secure strap and hemo-lock clips complete obliteration to the mesh was achieved. The bowel was inspected which is noted to be completely intact no evidence of any adverse effect. I then placed a 6.4 cm ventral X mesh at the umbilicus I secured the tails in place with 0 Nurolon I closed the fascia transversely with simple sutures of 0 Nurolon. I inspected that mesh internally using a 5 mm 30 degree scope that appeared to have good coverage. The greater omentum was noted to be overlying the bowel. The groins were again inspected the mesh was nicely protected away by the peritoneum. Hemostasis was nicely intact. Lab the abdomen to deflate of the CO2. Skin edges were approximate interrupted 4 Monocryl subdermal stitches. Steri-Strips Telfa and OpSite dressings applied. Sponge and instrument and needle counts were reported the surgeon be correct. Blood loss was approximately 20 cc. He tolerated the procedure well was taken to the recovery room in satisfactory condition. Specimens umbilical hernia and sac. Drains none. Blood loss 20 cc. Mauri Rowell M.D., F.A.C.S. Type of Anesthesia:: General Anesthesiologist: Dyllan Lam
[2019-03-21] MEDS: Bupivacaine Mpf 0.5% 30 ML VIAL (09:24)
--- NOTE | 2019-03-21 09:55 | EKG12_ITS ---
Test Reason : Blood Pressure : / mmHG Vent. Rate : 069 BPM Atrial Rate : 069 BPM P-R Int : 228 ms QRS Dur : 094 ms QT Int : 444 ms P-R-T Axes : 000 -04 -04 degrees QTc Int : 475 ms Sinus rhythm with 1st degree A-V block Low voltage QRS Borderline ECG When compared with ECG of 15-MAR-2019 08:39, No significant change was found Confirmed by RONALD THORPE, JOSHUA ([id number]), senior technical editor MALCOM LOPEZ ([id number]) on 03/24/2019 10:27:21 A M Referred By: Mauri Rowell Confirmed By:DERRICK CARDENAS MD
[2019-03-21 10:41] LABS: Bedside Glucose 237 mg/dL (70-110)
[2019-03-21 10:41] LABS: Anion Gap 7 (5-15); BUN 16 mg/dL (7-18); BUN/Creat Ratio 14.2 RATIO (10-20); Calcium,Total 8.3 mg/dL (8.5-10.1); Chloride 102 mmol/L (98-107); Creatinine, Serum 1.13 mg/dL (0.70-1.30); EST Glomerular Filtration Rate 67 mL/min (>60); Est Glom Filt Rate - Afr Amer 82 mL/min (>60); Estimated Creatinine Clearance 59.22 ml/min; Glucose 217 mg/dL (74-106); Potassium 3.9 mmol/L (3.5-5.1); Sodium Level 136 mmol/L (136-145)
[2019-03-21] MEDS: HYDROcodone Bitartrate/Apap 5/325 Tablet PO (11:58)
== END 2019-03-21 12:45 | disposition home or self-care (01) ==
LOC: SDC 05:21 → AC 05:21
PROVIDERS: Anesthesiology; Family Provider Family Medicine; PCP Family Medicine; Referring Provider Surgery; Visit Provider Surgery
PROC: (CPT 49650; principal; 2019-03-21 06:55)
PROC: (CPT 49585; 2019-03-21 06:55)
DX: K42.9 Umbilical hernia without obstruction or gangrene (principal); K40.20 Bilateral inguinal hernia, without obstruction or gangrene, not specified as recurrent; I25.10 Atherosclerotic heart disease of native coronary artery without angina pectoris; I10 Essential (primary) hypertension; M19.90 Unspecified osteoarthritis, unspecified site; K21.9 Gastro-esophageal reflux disease without esophagitis; E11.9 Type 2 diabetes mellitus without complications; E06.9 Thyroiditis, unspecified; E66.3 Overweight; Z68.31 Body mass index [BMI] 31.0-31.9, adult; Z87.891 Personal history of nicotine dependence; Z85.46 Personal history of malignant neoplasm of prostate; Z79.84 Long term (current) use of oral hypoglycemic drugs; Z79.899 Other long term (current) drug therapy
CPT/HCPCS: 49585; 49650; 36415; 80048; 80061; 80076; 82962; 83036; 84443; 84484; 85027; 88302; 93005; C1781; J7120; J2405; J3475

== ENCOUNTER → 2019-05-31 08:45 | Outpatient (CLI) | payer MEDICARE, OTHER, SELFPAY ==
--- NOTE | 2019-05-31 08:45 | MASS_PTH ---
PATIENT: MARY OBREGON LOC: [facility] U#:[id number] AGE/SX: 79/M ROOM: RE05/31/[address]: Dr. Mauri Rowell MD : 1945 BED: DIS: SPEC #: [id number] RECD: 05/31/19 11:31 STATUS: GEORGE OTILIA #: [id number] ARA: 05/31/19 08:[address]: Mauri Rowell DEPT: SURGICAL PATHOLOGY RECD BY: Jerome Myles ENTERED: 05/31/19 13:44 SP TYPE: Mass OTHR DR: Dr. Brandon Neves MD Tissues: Vein, NOS Procedures: Surgery Specimen Level III HEADER OPERATION: Excision of left arm arteriovenous malformation PRE-OP DIAGNOSIS: Arteriovenous malformation TISSUE SUBMITTED: Left arm arteriovenous malformation MICROSCOPIC DIAGNOSIS Lesion of left arm, biopsy: Consistent with benign arteriovenous malformation Skin with no pathologic change. AM:carolann 12/5/19 COMMENT Case has been reviewed in consultation with Dr. Dash who concurs with the above diagnosis. IDC:[id number] MICROSCOPIC DESCRIPTION Slides are reviewed. GROSS DESCRIPTION Received in fixative is one container labeled with the patient's name and designated left arm AVM. The specimen consists of a piece skin with underlying tissue. The underlying tissue measures 3 x 2.5 x 0.5 cm. The skin piece measures 3 x 0.5 cm. The specimen is submitted in two cassettes. / MICKY:carolann 05/31/19 TC:1 CPT: 79093
[2019-05-31 09:17] VITALS: BMI 31.7
== END ==
PROVIDERS: Family Provider Family Medicine; PCP Family Medicine; Referring Provider Surgery; Visit Provider Surgery
DX: Q27.39 Arteriovenous malformation, other site (principal)
CPT/HCPCS: 88304

== ENCOUNTER 2019-08-01 07:15 | Day surgery (SDC) | payer MEDICARE, OTHER, SELFPAY ==
--- NOTE | 2019-07-17 01:47 | HP_ITS ---
Intake Vital Signs 07/17/19 BMI 31.7 07/17/19 Height 5 ft 9.5 in 07/17/19 Weight: 221 lb 07/17/19 BMI 32.1 07/17/19 BP 137/83 H 07/17/19 Blood Pressure Location Rt brachial 07/17/19 Position Sitting 07/17/19 Respiration 18 Intake Visit Reasons: Esophagogastroduodenoscopy Chief Complaint: dm2 Hall Clerk Required: No Is patient in pain?: No Allergies adhesive Allergy (Verified 07/17/19 13:22) Rash lisinopril Adverse Reaction (Verified 07/17/19 13:22) Other losartan [Losartan] Adverse Reaction (Verified 07/17/19 13:22) Other Medications Amlodipine [Norvasc] 5 mg PO DAILY 10/13/13 [History Confirmed 07/17/19] Lisinopril/Hydrochlorothiazide [Zestoretic Tablet] 1 tab PO LUNCH 10/13/13 [History Confirmed 07/17/19] Metoprolol Tartrate [Lopressor (beta parvez)] 25 mg PO BID 10/13/13 [History Confirmed 07/17/19] Levothyroxine Sodium [Synthroid] 125 mcg PO DAILY 01/28/18 [History Confirmed 07/17/19] vit C,E,zinc,Cm-hmkgu-0-lutein-zeaxanthin 250 mg-2.5 mg-0.5 mg capsule 1 cap PO BID 01/28/18 [History Confirmed 07/17/19] calcitriol 0.25 mcg capsule 0.25 mcg PO MOWEFR 03/15/18 [History Confirmed 07/17/19] cholecalciferol (vitamin D3) 25 mcg (1,000 unit) capsule 1,000 unit PO DAILY 12/26/18 [History Confirmed 07/17/19] Pantoprazole Sodium [Protonix] 40 mg PO DAILY 01/20/19 [History Confirmed 07/17/19] metformin 1,000 mg tablet 1,000 mg PO BID #180 tab 06/15/19 [Rx Confirmed 07/17/19] PFSH Medical History Type 2 diabetes mellitus with diabetic polyneuropathy (Acute) Arteriovenous malformation (AVM) (Acute) Vision loss (Chronic) AMD (age related macular degeneration) (Chronic) Arthritis (Chronic) Thyroid disease (Chronic) Calf tenderness (Chronic) GERD (gastroesophageal reflux disease) (Chronic) Superficial thrombophlebitis of arm (Chronic) Inguinal hernia bilateral, non-recurrent (Chronic) Type 2 diabetes mellitus (Chronic) Nonobstructive atherosclerosis of coronary artery (Chronic) Essential (primary) hypertension (Chronic) Hemangioma (Acute) Hematoma (Resolved) Medial ankle sprain (Resolved) Change in bowel habit (Inactive) Surgical History Hx of umbilical hernia repair (Acute) Hx of bilateral inguinal hernia repair (Acute) History of left heart catheterization (Resolved 2000) History of appendectomy (Resolved) History of thyroidectomy (Resolved) History of cholecystectomy (Resolved) History of prostate surgery (Resolved) Hx of rhinoplasty (Resolved) Hx of colonoscopy (Resolved) Family History Father Heart disease Mother Heart disease Hypertension Brother Flowers's esophagus Esophageal cancer Heart disease Sudden cardiac Daughter Flowesr's esophagus Other Blindness Social History (Updated 07/17/19 @ 13:47 by Mauri Rowell MD) Smoking Status: Former smoker second hand exposure: No alcohol intake: never substance use type: does not use caffeine: Yes what type of physical activity do you participate in: walking frequency: daily seatbelt use: always HPI HPI HPI: MARY OBREGON, is a 73 M who presents to the office today for HPI HPI Surgical H&P: Yes HPI: MARY OBREGON, is a 73 M who presents to the office today for surgical follow-up of Flowers's esophagus. 73-year-old gentleman. His most recent upper endoscopy performed by myself was March 30, 2018. His Z line was 26 cm from the incisors. Medium sized hiatal hernia. Long segment Flowers's. Fortunately biopsies did not show dysplasia. At my request then however he was seen by Dr Rich Ordoñez and on June 08, 2018 had a repeat upper endoscopy with multiple biopsies. There was a 9 cm segment of Flowers's esophagus found lower third of esophagus. Biopsies again fortunately did not demonstrate dysplasia. Recommendation was for follow-up endoscopy at 1 year. The patient did not want to travel and so would like to have that performed locally. He has instituted a plant-based diet to assist with his diabetes. He has had an 8 pound weight loss intentionally. He denies dysphasia. He just lost a brother to an acute myocardial infarction. By report the patient had just had coronary stenting but then failed to take his medications. That same brother had a history of esophageal cancer as well. Exam Const General: cooperative, healthy appearing, comfortable, no acute distress Nutritional Appearance: obese Orientation: alert, awake HENMT Head: normal to inspection Chest Chest palpation & inspection: normal inspection of the chest Resp Effort & Inspection: normal respiratory effort Auscultation: clear to auscultation bilaterally Cardio Rate: regular rate Rhythm: regular rhythm GI Palpation: soft, no hepatosplenomegaly Auscultation: normal bowel sounds Extrem General: no calf tenderness bilaterally Psych Affect: normal affect Assessment & Plan Problems 1. 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 He is aware of the technique, benefit, risk, alternatives. If again pathology is nondysplastic then we could follow-up with further routine upper endoscopy in 3 years. If it is indefinite for dysplasia we would repeat endoscopy at 3 to 6 months. If low-grade dysplasia is identified then would consider endoscopic ablative therapy. CC: Dr. Brandon Rowell M.D., F.A.C.S. 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 There are no clinical changes since date of exam.
[2019-07-17 13:23] VITALS: BMI 31.7
[2019-08-01 07:35] VITALS: BP 145/74; PULSE 68; RESP 16; TEMP 36.9; O2SAT 96; BMI 31.2
[2019-08-01] MEDS: Lactated Ringers 1,000 ML 100 ML IV (07:44)
[2019-08-01 08:05] LABS: Bedside Glucose 158 mg/dL (70-110)
--- NOTE | 2019-08-01 08:30 | EGD_PTH ---
PATIENT: MARY OBREGON LOC: EN U#:[id number] AGE/SX: 73/M ROOM: RE08/01/[address]: Dr. Mauri Rowell MD : 1945 BED: DIS: 08/01/2019 SPEC #: [id number] RECD: 08/01/19 10:43 STATUS: GEORGE RELenka #: [id number] ARA: 08/01/19 08:[address]: Mauri Rowell DEPT: SURGICAL PATHOLOGY RECD BY: Jerome Myles ENTERED: 08/01/19 13:05 SP TYPE: EGD BIOPSY OTHR DR: Dr. rBandon Neves MD Tissues: A - Gastric mucous membrane B - HERNIA C - Esophageal mucous membrane D - Esophageal mucous membrane E - Esophageal mucous membrane F - Esophageal mucous membrane G - Esophageal mucous membrane H - Esophageal mucous membrane I - Esophageal mucous membrane Procedures: Special Stain Group II Surgery Specimen Level IV Alcian Blue/PAS (control) HEADER O[place] [place] DIAGNOSIS: Flowers's esophagus TISSUE SUBMITTED: A - Antral biopsy, B - Hiatal hernia biopsy, C - Distal esophageal biopsy, D - Distal esophagus 2 cm biopsy, E - Distal esophagus 4 cm biopsy, F - Distal esophagus 6 cm biopsy, G - Distal esophagus 8 cm biopsy, H - Distal esophagus 10 cm biopsy, I - Distal esophagus 12 cm biopsy MICROSCOPIC DIAGNOSIS A. Gastric antrum, biopsy: Mild chronic gastritis. See comment. B. Hiatal hernia, biopsy: Fragments of gastric mucosa with mild chronic inflammation. C. Distal esophagus, biopsy: Fragments of gastric mucosa with intestinal metaplasia consistent with Flowers's specialized epithelium. No evidence of dysplasia. See comment. D. Distal esophagus, 2 cm biopsy: Fragments of gastric mucosa with intestinal metaplasia consistent with Flowers's specialized epithelium. No evidence of dysplasia. See comment. E. Distal esophagus, 4 cm biopsy: Gastroesophageal junctional mucosa with intestinal metaplasia consistent with Flowers's epithelium. No evidence of dysplasia. See comment. F. Distal esophagus, 6 cm biopsy: Fragments of gastric mucosa with intestinal metaplasia consistent with Flowers's specialized epithelium. No evidence of dysplasia. See comment. G. Distal esophagus, 8 cm biopsy: Fragments of gastric mucosa with intestinal metaplasia consistent with Flowers's specialized epithelium. No evidence of dysplasia. See comment. H. Distal esophagus, 10 cm biopsy: Gastroesophageal junctional mucosa with intestinal metaplasia consistent with Flowers's specialized epithelium. Focal changes of reflux. No evidence of dysplasia. See comment. I. Distal esophagus, 12 cm biopsy: Gastroesophageal junctional mucosa with intestinal metaplasia consistent with Flowers's esophagus. No evidence of dysplasia. Focal changes of reflux. See comment. AM:carolann 08/02/19 COMMENT A. The results of immunohistochemistry for Helicobacter pylori will be reported separately ([id number]). C-I. Alcian blue/PAS stain with matched control supports the above diagnosis. Results from immunohistochemistry ([id number]) for surrogate HPV marker (p53) will be reported separately. MICROSCOPIC DESCRIPTION Slides are reviewed. GROSS DESCRIPTION A - Received in fixative is one container labeled with the patient's name and designated antral biopsy. The specimen consists of one irregular fragment of light perdomo soft tissue that measures 1 x 0.2 x 0.1 cm. The specimen is totally submitted in one cassette. B - Received in fixative is one container labeled with the patient's name and designated hiatal hernia biopsy. The specimen consists of multiple irregular fragments of light perdomo soft tissue that in aggregate measure 1 x 0.7 x 0.1 cm. The specimen is totally submitted in one cassette. C - Received in fixative is one container labeled with the patient's name and designated distal esophageal biopsy. The specimen consists of multiple irregular fragments of light perdomo soft tissue that in aggregate measure 2 x 0.5 x 0.1 cm. The specimen is totally submitted in one cassette. D - Received in fixative is one container labeled with the patient's name and designated distal esophagus 2 cm. The specimen consists of multiple irregular fragments of light perdomo soft tissue that in aggregate measure 2.5 x 0.5 x 0.1 cm. The specimen is totally submitted in one cassette. E - Received in fixative is one container labeled with the patient's name and designated distal esophagus 4 cm. The specimen consists of multiple irregular fragments of light perdomo soft tissue that in aggregate measure 1 x 0.5 x 0.1 cm. The specimen is totally submitted in one cassette. F - Received in fixative is one container labeled with the patient's name and designated distal esophagus 6 cm. The specimen consists of multiple irregular fragments of light perdomo soft tissue that in aggregate measure 1 x 0.4 x 0.1 cm. The specimen is totally submitted in one cassette. G - Received in fixative is one container labeled with the patient's name and designated distal esophagus 8 cm. The specimen consists of multiple irregular fragments of light perdomo soft tissue that in aggregate measure 0.8 x 0.2 x 0.1 cm. The specimen is totally submitted in one cassette. H - Received in fixative is one container labeled with the patient's name and designated distal esophagus 10 cm. The specimen consists of multiple irregular fragments of light perdomo soft tissue that in aggregate measure 0.7 x 0.2 x 0.1 cm. The specimen is totally submitted in one cassette. I - Received in fixative is one container labeled with the patient's name and designated distal esophagus 12 cm. The specimen consists of multiple irregular fragments of light perdomo soft tissue that in aggregate measure 1 x 0.5 x 0.1 cm. The specimen is totally submitted in one cassette. / SJ:carolann 08/01/19 TC:3 CPT: 38823 x9, 03626 x7
--- NOTE | 2019-08-01 08:30 | IMM_PTH ---
PATIENT: MARY OBREGON LOC: EN U#:[id number] AGE/SX: 73/M ROOM: RE08/01/[address]: Dr. Mauri Rowell MD : 1945 BED: DIS: 08/01/2019 SPEC #: [id number] RECD: 08/01/19 13:56 STATUS: GEORGE OTILIA #: [id number] ARA: 08/01/19 08:[address]: Mauri Rowell DEPT: IMMUNOHISTOCHEMISTRY RECD BY: Delaney Juarez ENTERED: 08/01/19 13:57 SP TYPE: IMMUNO OTHR DR: Dr. Brandon Neves MD Tissues: A - Stomach, NOS Procedures: H Pylori (initial) P53 (initial) KI-67 (add) PHYSICIAN & INSTITUTION [place] [address] SPECIMEN INFORMATION: Tissue Source: A - Antral biopsy, C - Distal esophageal biopsy, D - Distal esophagus at 2 cm, E - Distal esophagus at 4 cm, F - Distal esophagus at 6 cm, G - Distal esophagus at 8 cm, H - Distal esophagus at 10 cm, I - Distal esophagus at 12 cm Clinical Info: Flowers's esophagus Specimen Number: [id number] A, C-I CPT code: 34299 x8, 52512 x7 METHODOLOGY: Deparaffinized sections of prefer/formalin-fixed tissue or PAP/DQ stained slides are incubated with monoclonal/polyclonal antibodies/oligonucleotide probes. Localization is made via biotin free immunoperoxidase method. Appropriate controls are performed and reacted as expected. Results on target cell population are indicated in the following table: RESULTS: ANTIBODY / CLONE RESULT Block A H Pylori (polyclonal) negative Block C P53 (DO-7) positive, focal, patchy Ki-67 (30-9) positive, low Block D P53 (DO-7) positive, focal, patchy Ki-67 (30-9) positive, low Block E P53 (DO-7) positive, focal, patchy Ki-67 (30-9) positive, low Block F P53 (DO-7) positive, focal, patchy Ki-67 (30-9) positive, low Block G P53 (DO-7) positive, focal, patchy Ki-67 (30-9) positive, low Block H P53 (DO-7) positive, focal, patchy Ki-67 (30-9) positive, low Block I P53 (DO-7) positive, focal, patchy Ki-67 (30-9) positive, low These tests were developed and their performance characteristics determined by [facility]. They may not have been cleared or approved by the U.S. Food and Drug Administration. The FDA has determined that such clearance or approval is not necessary. The above immunohistochemical/dualISH markers are ordered and reviewed by the pathologist. INTERPRETATION: A. Antral biopsy: Negative for Helicobacter pylori organisms. C. Distal esophageal biopsy: No evidence of dysplasia. D. Distal esophagus at 2 cm, biopsy: No evidence of dysplasia. E. Distal esophagus at 4 cm, biopsy: No evidence of dysplasia. F. Distal esophagus at 6 cm, biopsy: No evidence of dysplasia. G. Distal esophagus at 8 cm, biopsy: No evidence of dysplasia. H. Distal esophagus at 10 cm, biopsy: No evidence of dysplasia. I. Distal esophagus at 12 cm, biopsy: No evidence of dysplasia. AM:carolann 08/02/19
[2019-08-01 09:06] VITALS: BP 110/65; BP 145/74; PULSE 60; RESP 16; TEMP 36.7; O2SAT 93
--- NOTE | 2019-08-01 09:10 | OP.CCLET_ITS ---
08/01/2019 Brandon Neves Md Re : Upper GI endoscopy procedure for Koffi Carranza Dear Pura This procedure was performed on Thursday, August 01, 2019. 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 Biopsied within the hiatal hernia and at 2cm segments from the distal esophagus moving more proximally to sample the 12cm long area of Flowers's mucosa. - Erythematous mucosa in the antrum. Biopsied. - Normal examined duodenum. Recommendations : - Discharge patient to home. - Resume previous diet. - Continue present medications. - Telephone my office for pathology results in 1 week. My findings are described in the full procedure note, which is enclosed. If I can be of further assistance, please feel free to contact me at Doctor phone number(s): Work: . Sincerely, Mauri Rowell MD 08/01/2019 9:09:33 AM This report has been signed electronically.
--- NOTE | 2019-08-01 09:10 | OP.EGD_ITS ---
Patient Name: Koffi Carranza Procedure Date: 08/01/2019 8:28 AM Date of : 1945 Age: 73 Procedure: Upper GI endoscopy Indications: Follow-up of Flowers's esophagus Providers: Mauri Rowell MD Referring MD: Brandon Neves Md Medicines: See the Anesthesia note for documentation of the administered medications Complications: No immediate complications. Procedure: Pre-Anesthesia Assessment: - Prior to the procedure, a History and Physical was performed, and patient medications and allergies were reviewed. The patient's tolerance of previous anesthesia was also reviewed. The risks and benefits of the procedure and the sedation options and risks were discussed with the patient. All questions were answered, and informed consent was obtained. Prior Anticoagulants: The patient has taken no previous anticoagulant or antiplatelet agents. ASA Grade Assessment: II - A patient with mild systemic disease. After reviewing the risks and benefits, the patient was deemed in satisfactory condition to undergo the procedure. After obtaining informed consent, the endoscope was passed under direct vision. Throughout the procedure, the patient's blood pressure, pulse, and oxygen saturations were monitored continuously. The gastroscope was introduced through the mouth, and advanced to the second part of duodenum. The upper GI endoscopy was accomplished without difficulty. The patient tolerated the procedure well. Scope In: 8:39:18 AM Scope Out: 9:01:07 AM Total Procedure Duration Time 0 hours 21 minutes 49 seconds Findings: There were esophageal mucosal changes secondary to established long-segment Flowers's disease present in the lower third of the esophagus. The maximum longitudinal extent of these mucosal changes was 12 cm in length. Mucosa was biopsied with a cold forceps for histology in 4 quadrants at intervals of 2 cm in the middle third of the esophagus and in the lower third of the esophagus. A total of 7 specimen bottles were sent to pathology. Diffuse mildly erythematous mucosa without bleeding was found in the gastric antrum. Biopsies were taken with a cold forceps for histology. The examined duodenum was normal. A medium-sized hiatal hernia was present. 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 Biopsied within the hiatal hernia and at 2cm segments from the distal esophagus moving more proximally to sample the 12cm long area of Flowers's mucosa. - Erythematous mucosa in the antrum. Biopsied. - Normal examined duodenum. Recommendation: - Discharge patient to home. - Resume previous diet. - Continue present medications. - Telephone my office for pathology results in 1 week. Procedure Code(s): --- Professional --- 80401, Esophagogastroduodenoscopy, flexible, transoral; with biopsy, single or multiple Diagnosis Code(s): --- Professional --- K22.70, 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 K31.89, Other diseases of stomach and duodenum CPT copyright 2017 [employer]. All rights reserved. The codes documented in this report are preliminary and upon seamstress fitter review may be revised to meet current compliance requirements. Mauri Rowell MD 08/01/2019 9:09:33 AM This report has been signed electronically. Number of Addenda: 0 Note Initiated On: 08/01/2019 8:28 AM
[2019-08-01 09:11] VITALS: BP 111/76; BP 145/74; PULSE 61; RESP 16; O2SAT 92
[2019-08-01 09:16] VITALS: BP 104/80; BP 145/74; PULSE 62; RESP 16; O2SAT 93
[2019-08-01 09:20] VITALS: BP 116/74; BP 118/70; BP 145/74; PULSE 56; PULSE 58; RESP 16; TEMP 36.8; O2SAT 94
[2019-08-01 09:39] VITALS: BP 145/74
== END 2019-08-01 09:47 | disposition home or self-care (01) ==
LOC: EN 07:16 → AC 07:17
PROVIDERS: PCP Family Medicine; Referring Provider Family Medicine; Visit Provider Surgery
PROC: 0DJ08ZZ Inspection of Upper Intestinal Tract, Via Natural or Artificial Opening Endoscopic (ICD-10-PCS; CPT 43235; principal; 2019-08-01 08:25)
DX: K22.70 Barrett's esophagus without dysplasia (principal); K29.50 Unspecified chronic gastritis without bleeding; K44.9 Diaphragmatic hernia without obstruction or gangrene; K21.9 Gastro-esophageal reflux disease without esophagitis; E11.42 Type 2 diabetes mellitus with diabetic polyneuropathy; M19.90 Unspecified osteoarthritis, unspecified site; E07.9 Disorder of thyroid, unspecified; I10 Essential (primary) hypertension; E66.9 Obesity, unspecified; Z68.31 Body mass index [BMI] 31.0-31.9, adult; Z79.84 Long term (current) use of oral hypoglycemic drugs; Z79.899 Other long term (current) drug therapy; Z87.891 Personal history of nicotine dependence
CPT/HCPCS: 43239; 82962; 88305; 88313; 88341; 88342; J7120

== ENCOUNTER → 2019-08-08 | Outpatient (CLI) | payer MEDICARE, OTHER, SELFPAY ==
[2019-08-01 07:35] VITALS: BMI 31.2
--- NOTE | 2019-08-08 13:19 | RAD_ITS ---
STUDY: X-RAY - LEFT KNEE REASON FOR EXAM: Left knee pain and swelling. TECHNIQUE: 4 view(s) of the knee. COMPARISON: None. FINDINGS: Normal visualized distal femur. Normal visualized proximal tibia and fibula. Normal proximal tibiofibular articulation. There is mild joint space narrowing of the medial femorotibial compartment. Normal lateral femorotibial compartment. Normal patellofemoral articulation. There is vascular calcification. RAD/Knee 4 or More Views IMPRESSION: Mild arthrosis of the medial femorotibial compartment. Electronically Signed: Tien Zapata MD at 15:10 EST Tel , Service support ,
== END | disposition home or self-care (01) ==
LOC: HPRAD 13:19
PROVIDERS: PCP Family Medicine; Referring Provider Orthopaedic Surgery; Visit Provider Orthopaedic Surgery
DX: M25.562 Pain in left knee (principal)
CPT/HCPCS: 73564

== ENCOUNTER → 2019-08-28 | Outpatient (CLI) | payer MEDICARE, OTHER, SELFPAY ==
[2019-08-28 09:39] VITALS: BMI 31.2
--- NOTE | 2019-08-28 10:35 | RAD_ITS ---
STUDY: X-RAY - RIGHT KNEE REASON FOR EXAM: Knee pain. TECHNIQUE: 4 view(s) of the knee. COMPARISON: Radiographs 08/03/2014 1234. FINDINGS: There is no interval change of the lesion in the distal femoral diaphysis containing calcifications and likely representing an enchondroma. Normal visualized proximal tibia and fibula. Normal proximal tibiofibular articulation. There is mild joint space narrowing of the medial femorotibial compartment as on the prior study. Normal lateral femorotibial compartment. There are minimal marginal osteophytes of the patella without joint space narrowing of the patellofemoral articulation. There is a small cyst soft tissue calcification medial to the distal femoral diaphysis unchanged since the prior study. RAD/Knee 4 or More Views IMPRESSION: Mild arthrosis of the medial femorotibial compartment. No interval change of the lesion in the distal femoral diaphysis, likely an enchondroma. Electronically Signed: Tien Zapata MD at 11:14 EST Tel , Service support ,
== END | disposition home or self-care (01) ==
PROVIDERS: PCP Family Medicine; Referring Provider Physician Assistant; Visit Provider Physician Assistant
DX: M25.561 Pain in right knee (principal)
CPT/HCPCS: 73564

== ENCOUNTER → 2019-09-05 | Outpatient (CLI) | payer MEDICARE, OTHER, SELFPAY ==
[2019-08-28 09:39] VITALS: BMI 31.2
--- NOTE | 2019-09-05 16:43 | MRI_ITS ---
STUDY: MRI LEFT KNEE REASON FOR EXAM: Left knee pain for 5 months status post injury, popping, swelling. TECHNIQUE: Standardized fat and water weighted pulse sequences were obtained in all 3 orthogonal planes. COMPARISON: Radiographs 08/08/2019. FINDINGS: There is fraying of the posterior horn of the medial meniscus (proton density sagittal images 12-15) without discrete medial meniscal tear. There is mild arthrosis of the medial femorotibial compartment with mild partial thickness chondral loss of the medial femoral condyle (T2 sagittal image 9). Normal medial femoral condyle and tibial plateau. Normal medial collateral ligamentous complex (MCL). Normal distal semimembranosus, gracilis and semitendinosus tendons. Normal lateral meniscus. Normal hyaline cartilage of the lateral femorotibial compartment. Normal lateral femoral condyle and tibial plateau. Normal proximal tibiofibular articulation. Normal lateral collateral (fibular) ligament. Normal popliteus tendon. Normal biceps femoris tendon. There is mild intrasubstance mucoid degeneration of the anterior cruciate ligament (T2 coronal images 12-14). Normal posterior cruciate ligament (PCL). Normal congruent patellofemoral articulation. Normal hyaline cartilage of the patellofemoral compartment. Normal medial and lateral patellar retinaculum. Normal visualized quadriceps tendon. There is mild proximal patellar tendinosis (T2 sagittal image 14). Normal Hoffa''s fat pad. There is a minimal volume of fluid in the knee joint. There is a short thin medial patellar plica. There is very mild edema in the subcutis adipose space. The otherwise visualized osseous structures are unremarkable. MRI/Lower Ext Joint Only (Routine) IMPRESSION: Fraying of the medial meniscus without discrete medial meniscal tear. Mild arthrosis of the medial femorotibial compartment. Mild proximal patellar tendinosis. Electronically Signed: Tien Zapata MD at 9:59 EDT Tel , Service support ,
== END | disposition home or self-care (01) ==
LOC: MRI 16:33
PROVIDERS: PCP Family Medicine; Referring Provider Physician Assistant; Visit Provider Physician Assistant
DX: M23.305 Other meniscus derangements, unspecified medial meniscus, unspecified knee (principal)
CPT/HCPCS: 73721

== ENCOUNTER → 2019-09-11 | Outpatient (CLI) | payer MEDICARE, OTHER, SELFPAY ==
[2019-09-07 13:36] VITALS: BMI 31.2
[2019-09-11 09:18] LABS: AST(SGOT) 29 U/L (15-37); Alanine Aminotransfer ALT/SGPT 41 U/L (16-61); Albumin, Serum 3.4 g/dL (3.2-5.0); Alkaline Phosphatase 76 U/L (45-117); Bilirubin, Direct 0.19 mg/dL (0.00-0.30); Cholesterol 148 mg/dL (200); Globulin 4.1 g/dL (2.2-4.2); High Density Lipoprotein 40 mg/dL; Protein, Total 7.5 g/dL (6.4-8.2); Triglycerides 85 mg/dL; Very Low Density Lipoprotein 17 mg/dL (5-40)
== END | disposition home or self-care (01) ==
LOC: LAB 07:46
PROVIDERS: PCP Family Medicine; Referring Provider Internal Medicine Cardiovascular Disease; Visit Provider Internal Medicine Cardiovascular Disease
DX: I25.10 Atherosclerotic heart disease of native coronary artery without angina pectoris (principal); E78.00 Pure hypercholesterolemia, unspecified; I10 Essential (primary) hypertension
CPT/HCPCS: 36415; 80061; 80076

== ENCOUNTER 2019-11-08 05:51 | Day surgery (SDC) | payer MEDICARE, OTHER, SELFPAY ==
[2019-09-07 13:36] VITALS: BMI 31.2
[2019-10-27 08:26] VITALS: BMI 30.8
[2019-11-08 06:15] VITALS: BP 138/78; PULSE 58; RESP 16; TEMP 36.9; O2SAT 100; BMI 31.6
[2019-11-08] MEDS: Lactated Ringers 1,000 ML 100 ML IV (06:45)
[2019-11-08 06:51] LABS: Bedside Glucose 154 mg/dL (70-110)
[2019-11-08] MEDS: Bupiv/Epi 0.25% 30 ML Vial (08:11)
[2019-11-08] MEDS: Cefazolin 2 GM in 0.9% Normal Saline 100 ML IV (08:30)
[2019-11-08] MEDS: Mupirocin Ointment 22gm Tube 1 APPLIC (09:01)
[2019-11-08 09:17] VITALS: BP 114/68; BP 138/78; PULSE 59; RESP 16; TEMP 37.1; O2SAT 94
--- NOTE | 2019-11-08 09:21 | PCM.DC.ORTHO ---
Discharge Diet: No Restrictions - Remove dressings postop day 4 and apply Band-Aids to incision sites, may shower and get incision wet postop day 4, weight-bear as tolerated left leg, call with increased pain numbness tingling or further issues arise, call if calf pain or calf swelling, take pain medications as prescribed do not take any other Tylenol products, follow-up in 2 weeks Discharge Activity: May Not Drive May shower in (days): 1 Ice area for (Minutes): 20 - Every hour while awake. Weight Bearing Status: Weight bearing as tolerated Keep extremity elevated above heart level: Operative Extremity Call your doctor if your incision/area has: Continuous Slow Oozing, Sudden Increased Bleeding, Increased Pain/ Swelling, Increased Redness, Foul Smelling Discharge Call your doctor if you observe: Fever of 101 or Higher, Coldness, Increased Pain, Numbness or Tingling, Change in Color, Calf discomfort Allergies/Adverse Reactions: Allergies adhesive Allergy (Verified 11/08/19 06:13) Rash lisinopril Adverse Reaction (Verified 11/08/19 06:13) Other CONSTANT COUGH losartan [Losartan] Adverse Reaction (Verified 11/08/19 06:13) Other CONSTANT COUGH Medications to take at Discharge Amlodipine [Norvasc] 5 mg PO DAILY 10/13/13 Lisinopril/Hydrochlorothiazide [Zestoretic /25 Tablet] 1 tab PO LUNCH 10/13/13 calcitriol 0.25 mcg capsule 0.25 mcg PO MOWEFR 03/15/18 cholecalciferol (vitamin D3) 25 mcg (1,000 unit) capsule 1,000 unit PO DAILY 12/26/18 metformin 1,000 mg tablet 1,000 mg PO BID #180 tab 06/15/19 levothyroxine 125 mcg capsule 125 mcg PO DAILY 09/28/19 metoprolol tartrate 25 mg tablet 25 mg PO BID #180 tab 09/28/19 ksqaiyom-fst-xeyyi acid 300 mcg-lycopene 600 mcg-lutein 300 mcg tablet 1 tab PO DAILY 09/28/19 omeprazole 40 mg capsule,delayed release 40 mg PO DAILY #1 cap 09/28/19 allopurinol 100 mg tablet 100 mg PO DAILY #90 tab 10/05/19 Vit C/E/Zn/Coppr/Lutein/Zeaxan [Preservision Areds 2 Softgel] 1 ea PO BID 11/01/19 Hydrocodone Bitart/Apap 5-325 [[place] 5MG-325MG] 1 - 2 tab PO Q6H PRN PRN 5 Days #40 tab 11/08/19 The following prescriptions were given: Hydrocodone Bitart/Apap 5-325 [[place] 5MG-325MG] 1 - 2 tab PO Q6H PRN PRN 5 Days #40 tab PRN Reason: Pain Transmission Status: Sent to [facility] Primary Care Physician: Brandon Neves MD [Primary Care Provider] - Test Results: Test results from this visit will be discussed in further detail at your follow-up appointment, if applicable. Please Follow Up With: Yvonne Gerardo, DO - [phone]
--- NOTE | 2019-11-08 09:22 | PCM.OPRPT ---
Report of Operation Date of Procedure: 11/08/19 Pre-Operative Diagnosis: left knee osteoarthritis, medial meniscus tear, pseudogout Post-Operative Diagnosis: same Surgery/Procedure Performed:: salk, pmm, lat tib plateau chondroplasty, floor attendant: Kraig Cartwright Type of Anesthesia:: General Anesthesiologist: Ceasar Caro Fluids Replaced: 700 cc Description of Procedure: Preop note Patient is a 74-year-old male with continued left knee clicking popping instability has failed conservative treatment MRI confirms medial meniscus tear medial lateral joint line but no patellofemoral arthritis noted however will check Intra-Op. Risk benefits alternatives surgery discussed with patient. Risk include but not limited to blood loss, blood clot, infection, neurovascular E, failure procedure loss of limb limb and loss of life as well as COVID risks were discussed with patient. Patient is aware would like proceed with left knee arthroscopy repair as indicated. Operative note Patient seen and examined preoperative holding area. Left knee was marked. Patient brought to the operating room placed supine on the operating table. Signed, anesthesia, antibiotics were government relations analyst. Left knee was prepped and draped in usual sterile fashion with tourniquet around his upper thigh. All bony prominences well-padded SCDs placed on his contralateral limb. We marked our anterior lateral anteromedial incisions the left leg was then elevate exsanguinated and tourniquet was raised to pressure of 250 torr. Timeout was performed. Then use 11 blade to create anterior lateral portal. Began our diagnostic arthroscopy. There is some fibrillated changes on the inferior pole of patella the trochlea was thin but unremarkable then moved to the medial joint line created and medial portal under under direct visualization. We able to then insert a probe and probed the unstable posterior horn medial meniscus tear as well as a mid body meniscus tear with an undersurface flap. We then used combination of a basket and a shaver to trim back the unstable pieces. We then reinserted the probe to probe the meniscus to ensure that there was good stable remnant meniscus remaining which there was. The ACL and PCL were present within the notch. The moved to the lateral joint line. The lateral femoral condyle was intact had some again some thinning throughout the lateral femoral condyle the lateral tibial plateau had some fibrillated changes an area in the central midportion of an unstable cartilage piece which was gently debrided. We reinserted the probe to make sure that the lateral meniscus was intact and stable probing which it was. We then irrigated the knee with copious nonsterile saline. We closed the portals with interrupted 4-0 nylon stitches sterile dressings were applied. Patient tolerated procedure well no complication transferred recovery room in stable condition. Postoperative note Discharge instructions discussed Hospital pharmacy has prescriptions Call with increased pain numbness tingling further issues arise Follow-up in 2 weeks This note was generated with Meridian dictation software. It may contain incorrect words, spelling, and punctuation that were not noted in checking the note before signing.
--- NOTE | 2019-11-08 09:28 | HP.PCM_ITS ---
History and Physical I have re-examined the patient. There are no clinical changes since date of exam. ntake Vital Signs 3 10/27/19 BMI 30.8 Intake Visit Reasons: left knee Chief Complaint: dm2 Allergies adhesive Allergy (Verified 09/28/19 13:39) Rash lisinopril Adverse Reaction (Verified 09/28/19 13:39) Other losartan [Losartan] Adverse Reaction (Verified 09/28/19 13:39) Other [facility] Social History (Updated 10/31/19 @ 13:[address] Yvonne Gerardo, DO) Smoking Status: Former smoker second hand exposure: No alcohol intake: never substance use type: does not use caffeine: Yes what type of physical activity do you participate in: walking frequency: daily seatbelt use: always HPI HPI Chief Complaint: dm2 Details: Patient was informed that this visit will be billed to patient. This visit was conducted during COVID-19 pandemic. Patient verbally consents to the submission of a Telehealth Visit; patient is aware of the risks, benefits, and possible coinsurance/copay cost. this was a video visit- but video on his end did not work, so pt could see/hear me and i could hear him only MARY OBREGON, is a 73 M who presents to the office today for preop discussion of left knee pain. still having catching and instability from pain on inside of left knee. still has pain and difficulty doing all activities of daily living. pain with stairs, bending knees, etc. was started on allopurinol for gout he has in great right toe which has improved. Denies numbness, tingling or other associated symptoms. ROS Const Constitutional: No anorexia Eyes Eyes: No blurry vision ENT ENT: No abnormal hearing Resp Respiratory: No cough Cardio Cardiology: No chest pain at rest Musc Musculoskeletal: Positive for joint pain Neuro Neurology: No abnormal hearing Assessment & Plan Problems 1. Derangement of medial meniscus of left knee M23.304 Plan Reviewed the pre-operative plans with the patient. Risks and benefits of the procedure were fully explained, including but not limited to infection, neurovascular injury, continued pain, arthritis, stiffness, need for further surgery, re-injury, DVT, PE, general risks of anesthesia, and loss of limb or life. The patient understands all the risks and does wish to proceed with written consent. discussed covid risks and patient wishes to proceed with surgical arthroscopy for left knee/med meniscus. this was not video visit as i could not see patient patient on allopurinol All questions answered. Patient in agreement of plan.Follow up after surgical intervention or sooner if pain, swelling, numbness or associated symptoms, or concerns develop. Coding Level of Care Code Off vis,new,level 4 Diagnoses Derangement of medial meniscus of left knee M23.304
[2019-11-08 09:30] VITALS: BP 121/70; BP 138/78; PULSE 61; RESP 17; O2SAT 96
[2019-11-08 09:41] LABS: Bedside Glucose 142 mg/dL (70-110)
[2019-11-08 09:45] VITALS: BP 124/62; BP 138/78; PULSE 61; RESP 16; TEMP 36.6; O2SAT 94
[2019-11-08 10:51] VITALS: BP 132/64; BP 138/78; PULSE 60; RESP 16; TEMP 36.7; O2SAT 93
== END 2019-11-08 10:54 | disposition home or self-care (01) ==
LOC: SDC 05:52 → AC 05:53
PROVIDERS: PCP Family Medicine; Referring Provider Orthopaedic Surgery; Visit Provider Orthopaedic Surgery
PROC: (CPT 29882; principal; 2019-11-08 08:10)
DX: S83.242A Other tear of medial meniscus, current injury, left knee, initial encounter (principal); M17.12 Unilateral primary osteoarthritis, left knee; M11.262 Other chondrocalcinosis, left knee; E11.9 Type 2 diabetes mellitus without complications; M10.9 Gout, unspecified; K21.9 Gastro-esophageal reflux disease without esophagitis; K76.0 Fatty (change of) liver, not elsewhere classified; N40.0 Benign prostatic hyperplasia without lower urinary tract symptoms; E06.9 Thyroiditis, unspecified; I10 Essential (primary) hypertension; G47.30 Sleep apnea, unspecified; Z87.891 Personal history of nicotine dependence; Z85.46 Personal history of malignant neoplasm of prostate; Z87.442 Personal history of urinary calculi; Z79.84 Long term (current) use of oral hypoglycemic drugs; Z79.899 Other long term (current) drug therapy; X58.XXXA Exposure to other specified factors, initial encounter; Y93.9 Activity, unspecified; Y92.89 Other specified places as the place of occurrence of the external cause; Y99.8 Other external cause status; Z11.59 Encounter for screening for other viral diseases
CPT/HCPCS: 01400; 29881; 82962; 87635; G2023; J7120; J2405; U0002

== ENCOUNTER → 2019-12-11 10:45 | Outpatient (CLI) | payer MEDICARE, OTHER, SELFPAY ==
[2019-11-22 09:57] VITALS: BMI 31.6
[2019-12-11 12:48] LABS: Uric Acid 7.9 mg/dL (3.5-7.2)
== END ==
PROVIDERS: PCP Family Medicine; Visit Provider Family Medicine
DX: E03.9 Hypothyroidism, unspecified (principal); M10.9 Gout, unspecified
CPT/HCPCS: 36415; 84443; 84550

== ENCOUNTER → 2020-03-27 | Outpatient (CLI) | payer MEDICARE, OTHER, SELFPAY ==
[2020-02-20 09:45] VITALS: BMI 31.6
--- NOTE | 2020-03-27 10:49 | VDLE_ITS ---
Reason For Study: Lt leg pain RIGHT LEFT CFV is compressible, spontaneous, phasic, GSV is normal. competent and demonstrates normal CFV is compressible, spontaneous, phasic, augmentation. competent, and demonstrates normal Procedure augmentation. Exam performed in department. FV is compressible, spontaneous, phasic, A preliminary report was called and/or faxed competent and demonstrates normal to Jose Angel. augmentation. POP V is compressible, spontaneous, phasic, competent and demonstrates normal augmentation. T/P Trunk is compressible. LT PerV is compressible. Acute deep vein thrombosis is noted in the left posterior tibial vein. Acute deep vein thrombosis is noted in the left soleus vein. Thrombus filled varicose veins noted throughout the knee to prox calf. Interpretation Summary Acute deep vein thrombosis is noted in the left posterior tibial vein. Acute deep vein thrombosis is noted in the left soleus vein. The remainder of the left lower extremity deep venous system is patent and compressible. Valvular competence appears intact within the proximal deep venous system on the left . The left great saphenous vein appears patent and compressible segmentally. Acute superficial thrombophlebitis is noted involving superficial varicosities near the left knee and proximal calf. Ordering Physician: Debbie Russo Referring Physician: Brandon Neves Performed By: Lexis Farnsworth RVT and Student
== END | disposition home or self-care (01) ==
PROVIDERS: PCP Family Medicine; Referring Provider Nurse Practitioner Adult Health; Visit Provider Nurse Practitioner Adult Health
DX: M79.605 Pain in left leg (principal)
CPT/HCPCS: 93971

== ENCOUNTER → 2020-05-07 10:38 | Outpatient (CLI) | payer MEDICARE, OTHER, SELFPAY ==
[2020-04-18 10:43] VITALS: BMI 31.1
[2020-05-07 23:02] LABS: PSA,Total- Diagnostic 0.18 ng/mL (0.0-4.0)
== END ==
PROVIDERS: PCP Internal Medicine; Referring Provider Urology; Visit Provider Urology
DX: Z12.5 Encounter for screening for malignant neoplasm of prostate (principal)
CPT/HCPCS: 36415; 84153; G0103

== ENCOUNTER → 2020-05-28 11:40 | Outpatient (CLI) | payer MEDICARE, OTHER, SELFPAY ==
[2020-05-28 10:57] VITALS: BMI 31.5
--- NOTE | 2020-05-28 11:52 | RAD_ITS ---
STUDY: X-RAY CHEST REASON FOR EXAM: Male, 74 years old. SOB X 4 MONTHS TECHNIQUE: PA and lateral views of the chest. COMPARISON: 05/03/2017. FINDINGS: The lungs are underexpanded with mild bilateral basilar atelectasis, otherwise clear. There is no demonstrated pleural abnormality. Normal size heart. Normal mediastinum and leah. Normal visualized pulmonary arteries. There is atherosclerotic calcification of the aortic arch with tortuosity. There are diffuse degenerative changes of the visualized thoracic spine. There is degenerative osteoarthritis of the bilateral shoulders. There is no demonstrated abnormality of the visualized soft tissue structures of the upper abdomen. RAD/Chest PA and Lateral IMPRESSION: Mild bilateral basilar atelectasis otherwise no acute process seen. Electronically Signed: Tessie Rubin MD at 2:20 EST , Service support ,
[2020-05-28 12:29] LABS: Absolute Lymphocyte Count 3.39 X10^3/uL (0.83-4.51); Absolute Neutrophil Count 11.9 X10^3/uL (2.0-7.7); Basophil# 0.09 X10^3/uL; Basophil% 0.5 % (0-1); Eosinophil# 0.07 X10^3/uL; Eosinophils% 0.4 % (0-5); Hematocrit 48.2 % (40-54); Hemoglobin 15.9 g/dL (13.0-16.5); Lymphocyte # 3.39 X10^3/ul (4.0); Lymphocyte % 20.3 % (19-41); Mean Corpuscular Hgb 30.2 pg (27.0-32.0); Mean Corpuscular Volume 91.6 fL (80-94); Mean Platelet Vol. 10.2 fl (6.2-12.0); Monocyte# 1.01 X10^3/uL; Monocyte% 6.1 % (0-10); NRBC Flagged by Analyzer 0 % (0-5); Neutrophil # 11.85 X10^3/uL (2.7-7.7); Platelet Count 367 K/mm3 (150-450); RBC Distribution Width CV 15.2 % (11.6-14.6); RBC Distribution Width SD 51.2 fl (35.1-43.9); Red Blood Count 5.26 M/mm3 (4.6-6.2); White Blood Count 16.7 K/mm3 (4.4-11.0)
[2020-05-28 12:53] LABS: Anion Gap 4 (5-15); BUN 18 mg/dL (7-18); BUN/Creat Ratio 14.5 RATIO (10-20); Calcium,Total 9.3 mg/dL (8.5-10.1); Chloride 102 mmol/L (98-107); Creatinine, Serum 1.24 mg/dL (0.70-1.30); EST Glomerular Filtration Rate 60 mL/min (>60); Est Glom Filt Rate - Afr Amer 73 mL/min (>60); Glucose 191 mg/dL (74-106); Potassium 3.7 mmol/L (3.5-5.1); Sodium Level 134 mmol/L (136-145)
[2020-05-28 13:25] LABS: BNP,B-Type NATRIURETIC PEPTIDE 46.8 pg/mL (0-100)
== END ==
PROVIDERS: PCP Internal Medicine; Referring Provider Physician Assistant Medical; Visit Provider Physician Assistant Medical
DX: I10 Essential (primary) hypertension (principal); E78.2 Mixed hyperlipidemia; R06.00 Dyspnea, unspecified; R53.83 Other fatigue; I82.402 Acute embolism and thrombosis of unspecified deep veins of left lower extremity
CPT/HCPCS: 36415; 71046; 80048; 83880; 85025

== ENCOUNTER → 2020-06-05 05:40 | Outpatient (CLI) | payer MEDICARE, OTHER, SELFPAY ==
[2020-05-28 10:57] VITALS: BMI 31.5
--- NOTE | 2020-06-05 05:57 | ECHOD_ITS ---
Reason For Study: CAD Procedure This was a 2D Doppler, Color Flow transthoracic echocardiogram. Exam performed in department. Left Ventricle Normal LV size. Left ventricular systolic function is normal. The estimated ejection fraction is 55 %. Stage 1 diastolic dysfunction. No regional wall motion abnormalities noted. Right Ventricle Normal RV size. Normal systolic function. Atria Normal left atrium. Normal right atrium. Mitral Valve Normal mitral valve. Tricuspid Valve Normal tricuspid valve. Aortic Valve Normal aortic valve. Trisinus/trileaflet aortic valve. Pulmonic Valve Normal pulmonic valve. Great Vessels Normal aortic root. The pulmonary artery is normal size. Normal inferior vena cava. Pericardium/Pleural No pericardial effusion. MMode/2D Measurements & Calculations LVIDd: 4.5 cm IVSd: 1.5 cm Ao root diam: 3.9 cm LVIDs: 3.0 cm LVPWd: 0.97 cm RVDd: 3.0 cm FS: 34.4 % LAV(MOD-bp): 35.5 ml LVAd ap4: 26.0 cm2 SV(MOD-sp4): 28.6 ml LAV(MOD-bp) Indexed: 16.3 ml/m2 EDV(MOD-sp4): 65.2 ml LAV(MOD-sp2): 33.6 ml EDV(sp4-el): 65.8 ml LAV(MOD-sp4): 35.5 ml LVAs ap4: 17.0 cm2 ESV(MOD-sp4): 36.7 ml ESV(sp4-el): 35.3 ml EF(MOD-sp4): 43.8 % EF(sp4-el): 46.4 % SV(sp4-el): 30.5 ml LA A4 area: 14.8 cm2 LA dimension(2D): 4.2 cm RA A4 area: 13.3 cm2 Doppler Measurements & Calculations MV E max mauro: 35.7 cm/sec Lat Peak E' Mauro: 6.5 cm/sec Med Peak E' Mauro: 3.4 cm/sec MV A max mauro: 73.2 cm/sec E/E' lat: 5.5 E/E' med: 10.6 MV E/A: 0.49 Ao V2 max: 101.1 cm/sec LV V1 max: 74.7 cm/sec Ao max P.1 mmHg LV V1 max P.2 mmHg Interpretation Summary Normal LV size. Left ventricular systolic function is normal. The estimated ejection fraction is 55 %. Stage 1 diastolic dysfunction. Ordering Physician: Sarah Stewart/Javi Deal Referring Physician: Annabelle Foss M.D. Performed By: Laxmi Crain RDCS
--- NOTE | 2020-06-05 18:08 | STRESSREP ---
Stress Test Report Exercise myocardial perfusion stress test. 74-year-old man with a history of hypertension, diabetes, minimal coronary artery disease. Stress protocol: Resting EKG demonstrates normal sinus rhythm with a rate of 79 bpm normal intervals are noted resting blood pressure is 150/88 mmHg. The patient exercised according to regular Danny protocol for a total duration of 4 minutes. Patient completed 1 minute into stage II of the Danny protocol. The maximum heart rate attained was 1 and 64 bpm which was 113% of max impacted heart rate the maximum workload was 5.8 metabolic equivalents. The test was terminated due to the target heart rate being achieved. The peak blood pressure was 166/88 mmHg. No arrhythmias were noted. Stress protocol. 14.1 mCi of technetium 99m sestamibi was injected at rest. The patient exercised according to regular Danny protocol for 4 minutes. At peak exercise 43.4 mCi of technetium 99m sestamibi was injected stress images were obtained stress and rest images were reconstructed and compared in the short axis vertical long horizontal long axis. Gated images were also obtained Perfusion SPECT analysis: Review of the stress images demonstrate normal uptake of tracer noted in all areas of the myocardium the resting images similar demonstrate normal uptake of tracer noted in all areas of the myocardium. No reversibility is noted suggest ischemia no previous infarct is noted. Gated SPECT analysis: The gated ejection fraction is 52%. Conclusion: Normal exercise myocardial perfusion stress test at a moderate workload. Preserved ejection fraction. Moderate functional aerobic impairment. In comparison to the previous stress test from 2014 in which the patient exercised 7-1/2 minutes the exercise capacity is markedly reduced.
== END ==
PROVIDERS: PCP Internal Medicine; Referring Provider Physician Assistant Medical; Visit Provider Physician Assistant Medical
DX: I25.10 Atherosclerotic heart disease of native coronary artery without angina pectoris (principal); R07.9 Chest pain, unspecified; R06.00 Dyspnea, unspecified; I10 Essential (primary) hypertension; E78.2 Mixed hyperlipidemia; R53.83 Other fatigue
CPT/HCPCS: 78452; 93017; 93306; A9500; A4216

== ENCOUNTER 2020-08-09 09:28 | Outpatient (RCR) | payer MEDICARE, OTHER, SELFPAY | END 2020-08-09 23:59 | LOC: IMMUN 09:28 | PROVIDERS: PCP Internal Medicine; Referring Provider Family Medicine; Visit Provider Family Medicine | DX: Z23 Encounter for immunization (principal) | CPT/HCPCS: 0011A; 0012A ==

== ENCOUNTER 2020-09-26 06:48 | Day surgery (SDC) | payer MEDICARE, OTHER, SELFPAY ==
[2020-09-18 13:50] VITALS: BMI 30.4
--- NOTE | 2020-09-24 12:12 | EKG12_ITS ---
Test Reason : PRE OP Blood Pressure : / mmHG Vent. Rate : 083 BPM Atrial Rate : 083 BPM P-R Int : 224 ms QRS Dur : 088 ms QT Int : 390 ms P-R-T Axes : 029 -07 016 degrees QTc Int : 458 ms Sinus rhythm with 1st degree A-V block with Premature atrial complexes Low voltage QRS Borderline ECG Confirmed by ESTEPHANIA THORPE, CESILIA ([id number]), sound editor MALCOM LOPEZ ([id number]) on 09/25/2020 8:31:03 AM Referred By: Mauri Rowell Confirmed By:CESILIA BEST MD
[2020-09-24 13:44] LABS: Hemoglobin 15.5 g/dL (13.0-16.5); Mean Corp Hgb Conc 32.3 g/dL (32-36); Mean Platelet Vol. 10.4 fl (6.2-12.0); Platelet Count 332 K/mm3 (150-450); RBC Distribution Width CV 13.8 % (11.6-14.6); RBC Distribution Width SD 49.3 fl (35.1-43.9); White Blood Count 14.3 K/mm3 (4.4-11.0)
[2020-09-24 14:11] LABS: Anion Gap 7 (5-15); BUN 17 mg/dL (7-18); BUN/Creat Ratio 12.4 RATIO (10-20); Calcium,Total 8.9 mg/dL (8.5-10.1); Chloride 97 mmol/L (98-107); Creatinine, Serum 1.37 mg/dL (0.70-1.30); EST Glomerular Filtration Rate 54 mL/min (>60); Est Glom Filt Rate - Afr Amer 65 mL/min (>60); Glucose 307 mg/dL (74-106); Potassium 3.4 mmol/L (3.5-5.1); Sodium Level 134 mmol/L (136-145)
[2020-09-26] VITALS (11 sets, daily range): BP systolic 92–147; BP diastolic 54–82; PULSE 56–82; RESP 16–59; TEMP 36.2–36.8; O2SAT 92–97; BMI 30.6
--- NOTE | 2020-09-26 06:52 | HP.PCM_ITS ---
Problem List (1) Internal bleeding hemorrhoids Status: Acute History and Physical Date of Admission: 09/26/20 Intake Visit Reasons: Discuss having hemorrhoidectomy off eliquis Chief Complaint: Update H&P and schedule hemorrhoidectomy Taxation Consultant Required: No Is patient in pain?: No Allergies adhesive Allergy (Verified 09/18/20 13:51) Rash Anppdpu-Kbg-Byk Reductase Inhibitor Adverse Reaction (Intermediate, Verified 09/18/20 13:51) Diarrhea lisinopril Adverse Reaction (Verified 09/18/20 13:51) Other losartan [Losartan] Adverse Reaction (Verified 09/18/20 13:51) Other Medications calcitriol 0.25 mcg capsule 0.25 mcg PO MOWEFR 03/15/18 [History Confirmed 09/18/20] levothyroxine 125 mcg capsule 125 mcg PO DAILY 09/28/19 [History Confirmed 09/18/20] metoprolol tartrate 25 mg tablet 25 mg PO BID #180 tab 09/28/19 [Rx Confirmed 09/18/20] allopurinol 100 mg tablet 100 mg PO DAILY #90 tab 10/05/19 [Rx Confirmed 09/18/20] blood sugar diagnostic See Rx Instructions .ROUTE .MEDSUPPLY #100 ea 01/05/20 [Rx Confirmed 09/18/20] blood-glucose meter See Rx Instructions .ROUTE .MEDSUPPLY #1 ea 01/05/20 [Rx Confirmed 09/18/20] lancing device with lancets kit See Rx Instructions .ROUTE .MEDSUPPLY #100 ea 01/05/20 [Rx Confirmed 09/18/20] amlodipine 5 mg tablet 5 mg PO DAILY #90 tab 04/18/20 [Rx Confirmed 09/18/20] losartan 100 mg-hydrochlorothiazide 25 mg tablet 1 tab PO DAILY #90 tab 07/02/20 [Rx Confirmed 09/18/20] sitagliptin 100 mg-metformin ER 1,000 mg tablet,extended [id number] mp 1 tab PO DAILY #90 tab 07/02/20 [Rx Confirmed 09/18/20] PFSH Medical History External bleeding hemorrhoids (Acute) Internal bleeding hemorrhoids (Acute) Hypothyroidism associated with 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) Nonobstructive atherosclerosis of coronary artery (Chronic) Essential (primary) hypertension (Chronic) Gout (Acute) History of goiter (Acute) History of kidney stones (Acute) History of meniscus repair of left knee (Acute) Neuropathy (Acute) SAMMI (obstructive sleep apnea) (Acute) Tinnitus (Acute) blood clot (Acute) cataracts (Acute) AMD (age related macular degeneration) (Chronic) Arteriovenous malformation (AVM) (Chronic) Arthritis (Chronic) 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) GERD (gastroesophageal reflux disease) (Chronic) Hemangioma (Chronic) Obesity (Chronic) Superficial thrombophlebitis of arm (Chronic) Thyroid disease (Chronic) Umbilical hernia without mention of obstruction or gangrene (Chronic) Vision loss (Chronic) Bilateral inguinal hernia (Resolved) Calf tenderness (Resolved) Hematoma (Resolved) Medial ankle sprain (Resolved) Change in bowel habit (Inactive) Surgical History Hx of cataract surgery (Acute) History of appendectomy (Resolved) History of cholecystectomy (Resolved) History of left heart catheterization (Resolved 2000) History of prostate surgery (Resolved) History of thyroidectomy (Resolved) Hx of bilateral inguinal hernia repair (Resolved) Hx of colonoscopy (Resolved) Hx of rhinoplasty (Resolved) Hx of umbilical hernia repair (Resolved) Family History Father Heart disease CAD (coronary artery disease) Sudden cardiac Myocardial infarction Mother Heart disease Hypertension Brother Flowers's esophagus Esophageal cancer Heart disease Sudden cardiac , Onset Age: 72 CAD (coronary artery disease) CVA (cerebral vascular accident) Depression Myocardial infarction Daughter Floewrs's esophagus Other Blindness Social History (Updated 09/19/20 @ 14:28 by Maryjane LINDA, PA-C) Smoking Status: Former smoker quit date: 06/28/71 HPI HPI HPI: KOFFI CARRANZA, is a 74 M who presents to the office today for HPI HPI Surgical H&P: Yes HPI: KOFFI CARRANZA, is a 74 M who presents to the office today for an update history and physical for hemorrhoidectomy. Patient completed Eliquis on Wednesday. He no longer has to be on this medication. He continues to note intermittent rectal bleeding. He denies any recent hospitalizations or illnesses. He denies complications with previous anesthesia. Patient's previous history per Dr. Rowell: KOFFI CARRANZA, is a 74 M who presents to the office today for surgical consultation regarding anal rectal itching pain and bleeding. 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 He has been having night sweats and shortness of breath and has an abnormal blood smear. He is being evaluated by Dr. Harvey Marina. In addition he was diagnosed a couple months ago was having superficial thrombophlebitis of the left medial calf with deep venous thrombosis in the left posterior tibial and soleus veins. His venous duplex exam from March 27, 2020 as noted below. He also had a pr evious upper endoscopy for surveillance of Flowers's. He has no evidence of dysplasia. 1 year ago he had a colonoscopy which was notable for prolapsing internal and external hemorrhoids at that time. [facility] [address] [place] [address] Venous Duplex US, Unilateral 03/27/20 1109 MR#: [id number] Name: KOFFI CARRANZA [facility] #:[id number] : 1945 74From: Tony Reece MD Attending Dr: Debbie Russo NP-CStatus: REG CLI Ordering Dr: Debbie Russo NP AD OPERATIONS SPECIALIST-CDate: 03/27/20 Location:CVSSex: Admitted: Reason For Study: Lt leg pain RIGHT LEFT CFV is compressible, spontaneous, phasic, GSV is normal. competent and demonstrates normal CFV is compressible, spontaneous, phasic, augmentation. competent, and demonstrates normal Procedure augmentation. Exam performed in department. FV is compressible, spontaneous, phasic, A preliminary report was called and/or faxed competent and demonstrates normal to Jose Angel. augmentation. POP V is compressible, spontaneous, phasic, competent and demonstrates normal augmentation. T/P Trunk is compressible. LT PerV is compressible. Acute deep vein thrombosis is noted in the left posterior tibial vein. Acute deep vein thrombosis is noted in the left soleus vein. Thrombus filled varicose veins noted throughout the knee to prox calf. Interpretation Summary Acute deep vein thrombosis is noted in the left posterior tibial vein. Acute deep vein thrombosis is noted in the left soleus vein. The remainder of the left lower extremity deep venous system is patent and compressible. Valvular competence appears intact within the proximal deep venous system on the left . The left great saphenous vein appears patent and compressible segmentally. Acute superficial thrombophlebitis is noted involving superficial varicosities near the left knee and proximal calf. Ordering Physician: Debbie Russo Referring Physician: Brandon Neves Performed By: Lexis Farnsworth RVT and Student 03/27/202005 Date Tony Reece MD [facility] Medical Records Department [address] [place] [address] Operative Report - CC Letter MR#: [id number] Name: KOFFI CARRANZA [facility] #:[id number] : [id number]: Mauri Rowell MD PCP:Brandon Nevse MD Status:[facility] 08/01/2019 Brandon Neves Md Re : Upper GI endoscopy procedure for Koffi Carranza Dear Pura This procedure was performed on Thursday, August 01, 2019. 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 Biopsied within the hiatal hernia and at 2cm segments from the distal esophagus moving more proximally to sample the 12cm long area of Flowers's mucosa. - Erythematous mucosa in the antrum. Biopsied. - Normal examined duodenum. Recommendations : - Discharge patient to home. - Resume previous diet. - Continue present medications. - Telephone my office for pathology results in 1 week. My findings are described in the full procedure note, which is enclosed. If I can be of further assistance, please feel free to contact me at Doctor phone number(s): Work: . Sincerely, Mauri Rowell MD 08/01/2019 9:09:33 AM This report has been signed electronically. 08/01/19908 Date Mauri Rowell MD [facility] Medical Records Department [address] [place] [address] Operative Report - Endoscopy MR#: [id number] Name: KOFFI CARRANZA [facility] #:[id number] : [id number]: Mauri Rowell MD PCP:Saurabh THORPE,[place] Status:REG [facility] 01/24/2019 Dalton Wiley MD [address] [place] [address] Re : Colonoscopy procedure for Koffi Jmfrank Dear Dr. Wiley This procedure was performed on Thursday, January 24, 2019. My impressions and recommendations are as follows: Impressions : - Non-thrombosed external hemorrhoids, non-thrombosed internal hemorrhoids and internal hemorrhoids that prolapse with straining, but spontaneously regress to the resting position (Grade II) found on digital rectal exam. - Diverticulosis in the entire examined colon. Extraordinarily extensive diverticulosis - No specimens collected. Recommendations : - Discharge patient to home. - Resume previous diet. - Continue present medications. - Repeat colonoscopy in 10 years for screening purposes. - Return to my office in 3 days. My findings are described in the full procedure note, which is enclosed. If I can be of further assistance, please feel free to contact me at Doctor phone number(s): Work: . Sincerely, Mauri Rowell MD 01/24/2019 10:38:12 AM This report has been signed electronically. 01/24/19 1038 Date Mauri Rowell MD ROS General General: Yes fatigue; no weight change, appetite, colon cancer, breast cancer or weakness HEENT HEENT: No difficulty swallowing, eye injury, eye surgery, swollen glands or hoarseness Endo Endocrine: Yes diabetes mellitus; no thyroid disease, thyroid cancer, Hair loss, heat intolerance or cold intolerance Musc Musculoskeletal: Yes arthritis; no back problems, rheumatoid arthritis, gout or joint pain Cardio Cardiovascular: Yes high blood pressure; no murmur, pacemaker, heart disease, atrial fibrillation, heart attack, heart stent, palpitations, shortness of breat with exertion or chest pain Psych Psychiatric: No depression, anxiety or hearing voices Resp Respiratory: Yes shortness of breath, Yes sleep apnea, No cough, No COPD, No asthma, No emphysema, No wheezing Gastro Gastrointestinal: No abdominal pain, No nausea or vomiting, Yes diarrhea, No constipation, No blood in stool, Yes acid reflux, Yes hemorrhoids, No ulcers, No gallbladder problem, No black,tarry stools Aaron Hematologic: Yes blood thinners, No blood disorders, No bleeding, No anemia, Yes blood clots Neuro Neurologic: No weakness Exam Const General: cooperative, healthy appearing, comfortable, no acute distress HENMT Head: normal to inspection Eyes General: appearance normal, both eyes and all related structures Neck Neck: normal visual inspection Neck mass: No Resp Effort & Inspection: normal respiratory effort Auscultation: clear to auscultation bilaterally Cardio Rate: regular rate Rhythm: regular rhythm Heart Sounds: no murmurs GI Inspection: normal to inspection Palpation: soft Auscultation: normal bowel sounds Rectal Exam: other (External exam with notable right lateral prolapsing hemorrhoid) Skin General: no rashes or lesions noted Neuro General: no focal motor deficits, CN's II-XI intact bilaterally Extrem General: normal to inspection Psych Appearance: grossly normal Affect: normal affect Assessment & Plan Problems 1. Internal bleeding hemorrhoids K64.[address] Rowell will plan to perform a PPH stapled hemorrhoidopexy. Patient will complete 1 day of clear liquids and 1 bottle of magnesium citrate the day before the procedure. Procedure details, risks and benefits have been reviewed with the patient. Patient has had the opportunity to ask and have questions answered. Patient verbally understands and agrees to proceed with the proposed plan. Plan Detail Goals Decrease pain Improve ROM Decrease inflammation Barriers Cervical DDD Coding Level of Care Code No Charge Diagnoses Internal bleeding hemorrhoids K64.8 Comment Update H&P I have re-examined the patient. There are no clinical changes since date of exam.
--- NOTE | 2020-09-26 07:20 | DCINST_ITS ---
Discharge Diet: No Restrictions Discharge Activity: Return to Normal Activity, May Not Drive - while you are taking narcotic pain medications. Do not drive, work with heavy equipment or sign legal documents for 24 hours after your surgery. Additional Dressing/Incision Instructions:: Please take a daily fiber supplement similar to Metamucil or Citrucel or FiberCon or Benefiber or generic. Drink plenty of fluids. If need be you can utilize a sitz bath as sitting in some warm soapy water 20 minutes of time for discomfort. Do not eat constipating foods like cheese. No heavy lifting or straining more than 10 pounds. Allergies/Adverse Reactions: Allergies adhesive Allergy (Verified 09/26/20 07:10) Rash Jhbmpwe-Vjw-Qfj Reductase Inhibitor Adverse Reaction (Intermediate, Verified 09/26/20 07:10) Diarrhea lisinopril Adverse Reaction (Verified 09/26/20 07:10) Other CONSTANT COUGH losartan [Losartan] Adverse Reaction (Verified 09/26/20 07:10) Other CONSTANT COUGH Medications to take at Discharge calcitriol 0.25 mcg capsule 0.25 mcg PO MOWEFR 03/15/18 allopurinol 100 mg tablet 100 mg PO DAILY #90 tab 10/05/19 amlodipine 5 mg tablet 5 mg PO DAILY #90 tab 04/18/20 losartan 100 mg-hydrochlorothiazide 25 mg tablet 1 tab PO DAILY #90 tab 07/02/20 sitagliptin 100 mg-metformin ER 1,000 mg tablet,extended [id number] mp 1 tab PO DAILY #90 tab 07/02/20 levothyroxine 125 mcg tablet See Rx Instructions .ROUTE .COMPLEX #90 tablet 09/23/20 metoprolol tartrate 25 mg tablet See Rx Instructions .ROUTE .COMPLEX #180 tablet 09/23/20 Primary Care Physician: Annabelle Foss MD [Primary Care Provider] - Test Results: Test results from this visit will be discussed in further detail at your follow- up appointment, if applicable. Please Follow Up With: Mauri Rowell MD - [phone] When: Plan to have a follow up approximately 3 weeks after surgery.
[2020-09-26] MEDS: Lactated Ringers 1,000 ML 100 ML IV (07:44)
[2020-09-26 07:55] LABS: Bedside Glucose 179 mg/dL (70-110)
[2020-09-26] MEDS: Lubricating Jelly 60 GM Tube 30 GM TOPICAL (08:20)
[2020-09-26] MEDS: Cefotetan 2 GM in 0.9% NS 100 ML IV (08:20)
[2020-09-26] MEDS: Bupivacaine Mpf 0.5% 30 ML VIAL (09:00)
[2020-09-26] MEDS: BUPIVACAINE LIPOSOME/PF 20 ML VIAL OPERA.SITE (09:00)
--- NOTE | 2020-09-26 09:00 | HEM_PTH ---
PATIENT: MARY OBREGON LOC: [facility] [place] U#:[id number] AGE/SX: 74/M ROOM: RE09/26/[address]: Dr. Mauri Rowell MD : 1945 BED: DIS: 09/26/2020 SPEC #: [id number] RECD: 09/26/20 11:03 STATUS: GEORGE OTILIA #: [id number] ARA: 09/26/20 09:[address]: Mauri Rowell DEPT: SURGICAL PATHOLOGY RECD BY: Kayla Powell ENTERED: 09/26/20 12:19 SP TYPE: HEMORRHOID OTHR DR: Dr. Annabelle Foss MD Tissues: HEMORRHOIDS Procedures: Surgery Specimen Level IV HEADER OPERATION: PPH hemorrhoidectomy, stapled PRE-OP DIAGNOSIS: Internal bleeding hemorrhoids TISSUE SUBMITTED: Hemorrhoid tissue MICROSCOPIC DIAGNOSIS Hemorrhoid tissue, hemorrhoidectomy: Submucosal vascular ectasia and thrombosis consistent with hemorrhoids. Focal hyperplastic change. One benign lymph node. AM:carolann 09/27/2020 COMMENT Case has been reviewed in consultation with Dr. Dash who concurs with the above diagnosis. IDC:MICKY MICROSCOPIC DESCRIPTION Slides are reviewed. GROSS DESCRIPTION Received in fixative is one container labeled with the patient's name and designated hemorrhoid tissue. The specimen consists of two pieces of perdomo mucosal tissue measuring 7.5 x 2 x 0.6 cm and 2 x 1 x 0.5 cm. No mucosal lesion is identified. The nonmucosal surface is inked black. One end of the specimen also shows a suture. The entire specimen is submitted in five cassettes. / MICKY:carolann 09/26/20 TC:5 CPT: 59107
--- NOTE | 2020-09-26 09:13 | PCM.OPRPT ---
Problem List (1) Internal bleeding hemorrhoids Status: Acute Report of Operation Date of Procedure: 09/26/20 Pre-Operative Diagnosis: Bleeding internal hemorrhoids Post-Operative Diagnosis: Same Surgery/Procedure Performed:: PPH stapled hemorrhoidopexy Description of Surgical Findings:: Timeout and informed consent was obtained. 74-year-old gentleman was taken to the operating room. He underwent general anesthesia. Cefotetan 2 g were given intravenously. He was then placed prone jackknife on the table. Careful shoulder pelvic. Knee rolls were placed. The perianal area was clipper. Tape exposure was performed. Digital exam demonstrated normal appearing prostate. There were exuberant internal hemorrhoids moderate external hemorrhoids. There was no active bleeding at this time. The PPH stapled hemorrhoidopexy dilator and external ring were inserted. The internal dilator removed. The suturing assist platform was inserted. A 0 Prolene was used at 4 cm from anal verge and a running mucosal suture 360 degrees circumferentially. I was quite pleased with the depth that the placement of the suture. The staple was inserted and the Prolene was secured to the anvil la nena. It was then fed through the sideholes from the device and then the device was fully closed. It is of note that prior to inserting the stapler I did pull the suture string down upon my finger demonstrating complete occlusion of 60 degree involvement. So the stapler was closed. After 2 minutes it was fired. Then it was removed. The donut was noted to be completely intact. Visualization demonstrated complete hemostasis. There was good positioning 4 cm proximal to the anal verge. Gelfoam with dibucaine ointment was inserted. The. Anal areas anesthetized with 0.5% Marcaine mixed 50-50 with Exparel. Gauze dressings applied. He tolerated procedure well no apparent complication. Specimen internal hemorrhoids. Drains none. Blood loss minimal. He was taken to the recovery room in satisfactory condition without apparent complication Mauri Rowell M.D., F.A.C.S. Type of Anesthesia:: General Anesthesiologist: Dania Braxton
== END 2020-09-26 12:34 | disposition home or self-care (01) ==
LOC: SDC 06:49 → AC 06:49
PROVIDERS: PCP Internal Medicine; Referring Provider Surgery; Visit Provider Surgery
PROC: (CPT 46947; principal; 2020-09-26 08:45)
DX: K64.8 Other hemorrhoids (principal); K21.9 Gastro-esophageal reflux disease without esophagitis; M19.90 Unspecified osteoarthritis, unspecified site; I25.10 Atherosclerotic heart disease of native coronary artery without angina pectoris; E11.21 Type 2 diabetes mellitus with diabetic nephropathy; E03.9 Hypothyroidism, unspecified; G47.33 Obstructive sleep apnea (adult) (pediatric); Z79.84 Long term (current) use of oral hypoglycemic drugs; Z79.899 Other long term (current) drug therapy; Z20.822 Contact with and (suspected) exposure to COVID-19; Z87.891 Personal history of nicotine dependence; Z86.718 Personal history of other venous thrombosis and embolism
CPT/HCPCS: 00902; 46947; 36415; 80048; 82962; 85027; 87426; 88304; 88305; 93005; C9803; J7120; J2405

== ENCOUNTER → 2020-10-04 09:43 | Outpatient (CLI) | payer MEDICARE, OTHER, SELFPAY ==
[2020-09-17 08:01] VITALS: BMI 31.5
[2020-09-26 07:18] VITALS: BMI 30.6
--- NOTE | 2020-10-06 07:57 | PFT ---
INTRODUCTION: The patient is a 74-year-old male that presents for pulmonary function studies secondary to a diagnosis of secondary polycythemia. Respiratory therapy reports good patient effort. Bronchodilators were used during testing. INTERPRETATION: Forced expiration spirometry demonstrates no evidence of a large airways obstructive ventilatory defect. There was no significant response to aerosolized bronchodilators. Spirograms are of good quality but do not plateau indicating slow emptying of the lungs. Body plethysmography was performed and reveals lung volumes to be within normal limits. Diffusing capacity by single breath CO is also within normal limits. IMPRESSION: Grossly normal pulmonary function studies.
== END ==
PROVIDERS: PCP Internal Medicine; Referring Provider Internal Medicine Critical Care Medicine; Visit Provider Internal Medicine Critical Care Medicine
DX: D75.1 Secondary polycythemia (principal)
CPT/HCPCS: 94060; 94726; 94729; 94762

== ENCOUNTER 2020-10-07 11:00 | Outpatient (RCR) | payer MEDICARE, OTHER, SELFPAY ==
[2020-08-27 09:00] VITALS: BMI 31.1
--- NOTE | 2020-08-29 14:07 | HP.PTEVAL ---
Patient's Visit Information MARY OBREGON is a 74 year old M referred to Physical Therapy by Dr. Yvonne Gerardo DO with a diagnosis of LEFT KNEE OA. Date of Evaluation: 08/29/20 Physical Therapist: Michelle Bjearano, PT, Cert MDT - Visit Plan Frequency: 2-3x /Week Duration: 4-6 Weeks Plan: PHYSICAL THERAPY 2X'S A WEEK X 10 VISITS FOR AQUATIC THERAPY FOR L LE PAIN RELIEF, ROM, AND STRENGTHENING TO HELP MEET SET GOALS. - Subjective Work/Leisure: RETIRED. Disability: 80% DISABILITY THROUGH [facility] FOR NIDDM, NEUROPATHY KATLIN FEET, TINNITIS, VISION LOSS - MACULAR DEGENERATION, THYROIDECTOMY. Present symptoms: LEFT KNEE PAIN. L KNEE POPPING THAT IS INCREASING. Present since: ABOUT 4 MONTHS AGO IS WHEN THIS EPISODE STARTED. Pain Scale: WORST 8/10, LEAST 3/10. Currently: 4/10. Commenced as a result of: NO APPARENT REASON. Symptoms at onset: L KNEE. Worse: GOING UP AND DOWN STEPS, WALKING FOR WEIGHT MGMT, TURNING TO THE RIGHT CAUSES SHOOTING PAINS, AT NIGHT, RISING FROM SITTING. Better: HEAT AND 500 MG OF TYLONOL HELP A LITTLE BIT BUT NOT FOR LONG. Disturbed sleep: YES. Previous history/Previous treatment: L KNEE SX NOV 07 2019 - [facility] - PATIENT REPORTS HE FULLY RECOVERED AND IT WAS FINE - GETTING SHOTS - UNTIL ABOUT 4 MONTHS AGO. Treatment this episode: ONE SHOT SINCE FLARE UP. BRACE ORDERED - GETS FITTED TOMORROW. PT ORDER. Gait: PATIENT REPORTS THAT WHEN HE WALKS HE GETS L KNEE PAIN AT KNEE CAP AND MEDIALLY. MAKING RIGHT HAND TURNS OR STEPPING DOWN FROM CURB CAUSES SHOOTING PAINS. INCREASED LINGERING PAIN AFTER WALKING. HAS BEEN WALKING 2-3 MILES ABOUT 3 TIMES A WEEK. Unexplained weight loss: NO. Imaging: L KNEE X-RAY RECENTLY SHOWING INCREASED ARTHRITIS COMPARED TO A YEAR AGO PER PATIENT REPORT. SEE [facility] EMR. STUDY: X-RAY - LEFT KNEE. REASON FOR EXAM: Increasing left knee pain and popping, no recent injury. TECHNIQUE: 4 view(s) of the knee. COMPARISON: Radiographs 08/08/2019. FINDINGS: Normal visualized distal femur. Normal visualized proximal tibia and. fibula. Normal proximal tibiofibular articulation. There is moderate to severe joint space narrowing of the medial. femorotibial compartment, increased since the prior study. Normal lateral. femorotibial compartment. There are minimal marginal osteophytes without. joint space narrowing of the patellofemoral articulation. There is vascular calcification. . RAD/Knee 4 or More Views. IMPRESSION: Increased arthrosis of the medial femorotibial compartment. . Electronically Signed: Tien Zapata MD. at 9:52 EST. PMH: 80% DISABILITY THROUGH [facility] FOR NIDDM, NEUROPATHY KATLIN FEET, TINNITIS, VISION LOSS - MACULAR DEGENERATION, THYROIDECTOMY, GALLBLADDER REMOVED, TRIPLE HERNIA SX 2019, 2 L ELBOW SX'S - LAST IN 2018. NECK PAIN - CHIROPRACTIC TREATEMENT. - Objective THIS PATIENT AMBULATES INDEP'LY INTO PT WITH DECREASED CADANCE AND A MILD LIMP ON THE L LE. RIGHT LE STRENGTH AND ROM WFL. STRENGTH: LEFT HIP 4-/5, KNEE EXT 4-/5, KNEE FLEX 3-/5, ANKLE 5/5. LEFT KNEE ROM IN SUPINE WITH A HEEL SLIDE = FULL EXTENSION TO 109 DEG FLEXION WITH END RANGE PAIN. KATLIN LE LIGHT TOUCH SENSATION IS GROSSLY INTACT AND SYMMETRICAL BUT BOTTOM OF FEET NT. THER ACT: HOME INSTRUCTIONS FOR STOPPING WALKING PROGRAM FOR NOW AND REPLACE WITH WATER THERAPY DUE TO PAIN WITH WALKING. INITIATED HEP WITH ISO HIP ADD, GTB HIP ABD AND BRIDGES. WRITTEN HEP PROVIDED. PATIENT TOLERATED ALL EX'S WELL AND WAS ADVISED TO DO HEP IN PAINFREE RANGE ONLY. - Goals Goal 1:: INDEP AND SAFE GAIT ON LEVEL SURFACES AND UP AND DOWN STEPS WITH LEAST DEVIATIONS AND PAIN. Goal Time Frame: 4-6 Weeks Goal 2:: INCREASE FUNCTIONAL ROM OF L LE TO EASE ADL'S Goal Time Frame: 4-6 Weeks Goal 3:: INCREASE FUNCTIONAL STRENGTH OF L LE TO EASE ADL'S. Goal Time Frame: 4-6 Weeks Goal 4:: PATIENT WILL BE INDEP WITH A HEP AND/OR WATER EX PROGRAM FOR CONTINUED IMPROVEMENT ONCE FORMAL PHYSICAL THERPAY CONCLUDES. Goal Time Frame: 4-6 Weeks - Anticipated Interventions Patient/Client Instruction: Educate patient on: Condition, Plan of Care For the Purpose of:: To improve self management Therapeutic Exercise to Include: Strength training, Flexibilty training, Gait and locomotor training, Neuromotor development, In an aquatic setting, Active ROM For the Purpose of:: To decrease pain, To increase ROM, To improve muscle performance and motor function, To increase tolerance to activity/condition/position, To improve ability of physical actions for home/community/work/leisure, To improve gait and locomotor functions Thank you for the opportunity to evaluate your patient. For Medicare and Medicare HMO plans, please review the plan of care and approve it. It will need to be FAXED BACK to us at [phone] for Medicare purposes. For Medicare only, by signing this I certify the plan of care. Please let me know if there are questions or concerns regarding this plan of care. Physician Signature: Date:
--- NOTE | 2020-10-07 11:31 | HP.PTDCSUM ---
It has been my pleasure to treat MARY OBREGON referred by Dr. Yvonne Gerardo DO, with the diagnosis of LEFT KNEE OA for a total of 10 visit(s). Discharge Date: Please see the following information for a summary of their discharge status. Subjective: PATIENT REPORT THE BRACE HELPS A LITTLE BIT BUT IT DOESN'T TAKE THE PAIN AWAY. STATES HE IS NOT EVEN TOLERATING LIGHT EX AT HOME OR IN THE WATER BECAUSE HIS KNEE SWELLS AND THE PAIN INCREASES. PATIENT REPORTS HE THINKS THE AQUATIC THERAPY IS GOOD FOR IT BUT IT IS JUST CONTINUEING TO WORSEN DESPITE THE THERAPY. LLE Pain Intensity (Out of 10): 5 % Improvement: 0 Objective/Function: PATIENT WAS SEEN TODAY FOR RE-ASSESSMENT OF PROGRESS TOWARD THE SET PT GOALS AND THE NEED FOR FURTHER PHYSICAL THERAPY VS READINESS FOR DISCHARGE. LEFT KNEE ROM AND STRENGTH IS WORSENING. UPON EXAM TODAY: STRENGTH: LEFT HIP 3+/5, KNEE EXT 4-/5, KNEE FLEX 3-/5, ANKLE 5/5. LEFT KNEE ROM IN SUPINE WITH A HEEL SLIDE = FULL EXTENSION TO 105 DEG FLEXION WITH END RANGE PAIN. KATLIN LE LIGHT TOUCH SENSATION IS GROSSLY INTACT AND SYMMETRICAL BUT BOTTOM OF FEET NT. Goal 1:: INDEP AND SAFE GAIT ON LEVEL SURFACES AND UP AND DOWN STEPS WITH LEAST DEVIATIONS AND PAIN. Goal Progress: Not Progressing Goal 2:: INCREASE FUNCTIONAL ROM OF L LE TO EASE ADL'S Goal Progress: Not Progressing Goal 3:: INCREASE FUNCTIONAL STRENGTH OF L LE TO EASE ADL'S. Goal Progress: Not Progressing Goal 4:: PATIENT WILL BE INDEP WITH A HEP AND/OR WATER EX PROGRAM FOR CONTINUED IMPROVEMENT ONCE FORMAL PHYSICAL THERPAY CONCLUDES. Goal Progress: Not Progressing Plan: D/C DUE TO LACK OF PROGRESS. PATIENT AGREEABLE. If there are questions or concerns regarding this patient's physical therapy, please feel free to call me at [phone]. Thank you for the referral of this patient. Sincerely, Michelle Bejarano, PT, Cert MDT
== END 2020-10-07 19:00 | disposition home or self-care (01) ==
LOC: PT 11:00
PROVIDERS: PCP Internal Medicine; Referring Provider Orthopaedic Surgery; Visit Provider Orthopaedic Surgery
DX: M17.12 Unilateral primary osteoarthritis, left knee (principal)
CPT/HCPCS: 97113; 97162; 97164; 97530

== ENCOUNTER → 2020-10-15 13:02 | Outpatient (CLI) | payer MEDICARE, OTHER, SELFPAY ==
[2020-09-17 08:01] VITALS: BMI 31.5
[2020-09-26 07:18] VITALS: BMI 30.6
[2020-10-15 13:41] VITALS: PULSE 60; PULSE 62; PULSE 71; PULSE 72; PULSE 76; PULSE 77; PULSE 78; PULSE 80; O2SAT 95; O2SAT 96; O2SAT 98
--- NOTE | 2020-10-16 13:43 | WT_ITS ---
PSN 6 Minute Walk Test - 6 Minute Walk Test 6 Minute Walk Test: 6 Minute Walk Test PSN:6-Minute Walk Test Start: 10/15/20 13:41 Freq: Status: Active Protocol: RESP.6MINW Document 10/15/20 13:41 [facility] (Rec: 10/15/20 13:44 [facility] [id number]) 6 Minute Walk Test Date Performed 10/15/20 Time Performed 13:00 Height 5 ft 10 in Weight: 206 lb Weight in Pounds 206.[address]: Danny Shetty Assistive device used: None Pre-test Oxygen Delivery Method Room Air Pulse Ox (%) 96 Pulse Rate (60-100 beats/min) 60 Dyspnea Neo Scale (0-10) 0 1st minute Oxygen Delivery Method Room Air Pulse Ox (%) 96 Pulse Rate (60-100 beats/min) 72 Dyspnea Neo Scale (0-10) 0 Number of Rests Taken 0 2nd minute Oxygen Delivery Method Room Air Pulse Ox (%) 95 Pulse Rate (60-100 beats/min) 71 Dyspnea Neo Scale (0-10) 0 Number of Rests Taken 0 3rd minute Oxygen Delivery Method Room Air Pulse Ox (%) 95 Pulse Rate (60-100 beats/min) 76 Dyspnea Neo Scale (0-10) 0 Number of Rests Taken 0 4th minute Oxygen Delivery Method Room Air Pulse Ox (%) 95 Pulse Rate (60-100 beats/min) 77 Dyspnea Neo Scale (0-10) 0 Number of Rests Taken 0 5th minute Oxygen Delivery Method Room Air Pulse Ox (%) 95 Pulse Rate (60-100 beats/min) 78 Dyspnea Neo Scale (0-10) 0 Number of Rests Taken 0 6th minute Oxygen Delivery Method Room Air Pulse Ox (%) 96 Pulse Rate (60-100 beats/min) 80 Dyspnea Neo Scale (0-10) 0 Number of Rests Taken 0 Post-test Oxygen Delivery Method Room Air Pulse Ox (%) 98 Pulse Rate (60-100 beats/min) 62 Dyspnea Neo Scale (0-10) 0 Full Laps Walked 17 Partial Lap, Number of Tiles Walked 17 Total Distance Walked (ft) 1020 - Interpretation Interpretation: The patient ambulated 1020 feet over the course of 6 minutes beginning on room air without assistive devices or breaks. Pretesting oxygen saturation was noted to be 96% on room air. With ambulation, the sarika oxygen saturation was 95%. There was no significant exertional oxygen desaturation. - Recommendations Recommendations: There is no indication for the use of supplemental oxygen at this time.
== END ==
PROVIDERS: PCP Internal Medicine; Referring Provider Internal Medicine Critical Care Medicine; Visit Provider Internal Medicine Critical Care Medicine
DX: D75.1 Secondary polycythemia (principal)
CPT/HCPCS: 94618

== ENCOUNTER → 2020-11-11 06:55 | Outpatient (CLI) | payer MEDICARE, OTHER, SELFPAY ==
[2020-11-06 09:15] VITALS: BMI 31.5
[2020-11-11 07:32] LABS: Absolute Lymphocyte Count 3.62 X10^3/uL (0.83-4.51); Absolute Neutrophil Count 8.4 X10^3/uL (2.0-7.7); Basophil# 0.17 X10^3/uL; Basophil% 1.2 % (0-1); Eosinophil# 0.47 X10^3/uL; Eosinophils% 3.4 % (0-5); Hematocrit 46.2 % (40-54); Hemoglobin 15.4 g/dL (13.0-16.5); Lymphocyte # 3.62 X10^3/ul (0.83-4.51); Lymphocyte % 26.2 % (19-41); Mean Corp Hgb Conc 33.3 g/dL (32-36); Mean Corpuscular Hgb 31.8 pg (27.0-32.0); Mean Corpuscular Volume 95.5 fL (80-94); Mean Platelet Vol. 10.8 fl (6.2-12.0); Monocyte# 0.88 X10^3/uL; Monocyte% 6.4 % (0-10); NRBC Flagged by Analyzer 0 % (0-5); Neutrophil # 8.39 X10^3/uL (2.7-7.7); Neutrophil % 60.8 % (47-70); Platelet Count 327 K/mm3 (150-450); RBC Distribution Width CV 13.7 % (11.6-14.6); RBC Distribution Width SD 47.9 fl (35.1-43.9); Red Blood Count 4.84 M/mm3 (4.6-6.2); White Blood Count 13.8 K/mm3 (4.4-11.0)
[2020-11-11 08:01] LABS: Anion Gap 7 (5-15); BUN 19 mg/dL (7-18); BUN/Creat Ratio 14.5 RATIO (10-20); Calcium,Total 9.1 mg/dL (8.5-10.1); Chloride 102 mmol/L (98-107); Creatinine, Serum 1.31 mg/dL (0.70-1.30); EST Glomerular Filtration Rate 57 mL/min (>60); Est Glom Filt Rate - Afr Amer 68 mL/min (>60); Glucose 175 mg/dL (74-106); Potassium 3.8 mmol/L (3.5-5.1); Sodium Level 135 mmol/L (136-145)
[2020-11-11 08:06] LABS: Hemoglobin A1c 8.1 % (3.8-5.6)
[2020-11-11 08:14] LABS: Prothrombin Time (Protime)PT. 12.8 SECONDS (11.7-14.9)
[2020-11-12 07:42] LABS: Fructosamine 268 umol/L (0-285)
== END ==
PROVIDERS: PCP Internal Medicine; Referring Provider Orthopaedic Surgery; Visit Provider Orthopaedic Surgery
DX: Z01.818 Encounter for other preprocedural examination (principal); M17.12 Unilateral primary osteoarthritis, left knee; I10 Essential (primary) hypertension; I25.10 Atherosclerotic heart disease of native coronary artery without angina pectoris; E11.42 Type 2 diabetes mellitus with diabetic polyneuropathy
CPT/HCPCS: 36415; 80048; 82985; 83036; 85025; 85610

== ENCOUNTER → 2020-11-16 08:39 | Outpatient (CLI) | payer MEDICARE, OTHER, SELFPAY ==
[2020-11-06 09:15] VITALS: BMI 31.5
--- NOTE | 2020-11-16 08:40 | CT_ITS ---
EXAM: CT LEFT LOWER EXTREMITY WITHOUT INTRAVENOUS CONTRAST CLINICAL INDICATION: CT templating for left TKA TECHNIQUE: Helically acquired images were obtained of the left lower extremity without intravenous contrast. 2-D reformats were performed by the technologist. This CT exam was performed using one or more of the following dose reduction techniques: automated exposure control, adjustment of the mA and/or kV according to patient size, and/or use of iterative reconstruction technique. This report was created using [employer] report [employer] technology. COMPARISON: None. FINDINGS: BONES/JOINTS: Circumferential joint space narrowing of the left hip with mild marginal osteophyte formation. Subcortical cyst of the left femoral neck. Sclerotic lesion of the left acetabulum is compatible with a bone island. Moderate joint space narrowing with subchondral sclerosis of the left knee medial compartment. Mild peaking of the intercondylar eminence. Trace joint fluid seen in the suprapatellar soft tissues. Normal alignment of the left ankle. No erosive changes. No acute fracture. SOFT TISSUES: Unremarkable. No soft tissue swelling or gas. No radiopaque foreign body. VASCULATURE: Atherosclerotic calcifications of the femoral and popliteal arteries. CT/Extremity Lower without Contra IMPRESSION: 1. Medial compartment dominant degenerative changes of the left knee. 2. Mild left hip osteoarthrosis. Electronically Signed: Juan R Santoyo MD (Brooks) at 15:42 EDT , Service support ,
== END ==
PROVIDERS: PCP Internal Medicine; Referring Provider Orthopaedic Surgery; Visit Provider Orthopaedic Surgery
DX: M17.12 Unilateral primary osteoarthritis, left knee (principal)
CPT/HCPCS: 73700

== ENCOUNTER → 2020-12-02 09:22 | Outpatient (CLI) | payer MEDICARE, OTHER, SELFPAY ==
[2020-12-02 09:02] VITALS: BMI 31.5
[2020-12-02 12:27] LABS: Cholesterol 146 mg/dL (200); High Density Lipoprotein 35 mg/dL; T4 Free Direct 1.53 ng/dL (0.76-1.46); Thyroid Stim Hormone (TSH) 1.03 uIU/mL (0.358-3.74); Triglycerides 118 mg/dL; Very Low Density Lipoprotein 24 mg/dL (5-40)
[2020-12-02 12:29] LABS: Microalbumin,Random Urine 16.6 mg/L (NO RANGE EST.)
== END ==
PROVIDERS: Nurse Practitioner Family; PCP Internal Medicine; Visit Provider Internal Medicine Endocrinology, Diabetes & Metabolism
DX: E11.42 Type 2 diabetes mellitus with diabetic polyneuropathy (principal); E78.2 Mixed hyperlipidemia; I10 Essential (primary) hypertension; M17.12 Unilateral primary osteoarthritis, left knee; N18.6 End stage renal disease; M54.2 Cervicalgia; Q27.30 Arteriovenous malformation, site unspecified; K21.9 Gastro-esophageal reflux disease without esophagitis; E03.9 Hypothyroidism, unspecified; M10.9 Gout, unspecified; G47.33 Obstructive sleep apnea (adult) (pediatric); D75.1 Secondary polycythemia; E66.9 Obesity, unspecified; Z87.891 Personal history of nicotine dependence; Z86.718 Personal history of other venous thrombosis and embolism; Z79.899 Other long term (current) drug therapy
CPT/HCPCS: 36415; 80061; 82043; 83735; 84439; 84443; 86850; 86900; 86901; 87077; 87081; 93971

== ENCOUNTER 2020-12-17 17:23 | Observation (INO) | payer MEDICARE, OTHER, SELFPAY ==
[2020-11-06 09:15] VITALS: BMI 31.5
[2020-12-02 12:52] LABS: Magnesium 1.9 mg/dL (1.6-2.6)
[2020-12-06 08:03] VITALS: BMI 31.5
--- NOTE | 2020-12-06 09:32 | VDLE_ITS ---
Reason For Study: Hx DVT Procedure LEFT This is a venous duplex using B-mode, color GSV is normal. flow and spectral Doppler. CFV is compressible, spontaneous, phasic, Exam performed in department. competent, and demonstrates normal A preliminary report was called and/or faxed augmentation. to Colin. FV is compressible, spontaneous, phasic, competent and demonstrates normal augmentation. POP V is compressible, spontaneous, phasic, competent and demonstrates normal augmentation. T/P Trunk is compressible. PTV is compressible. LT PerV is compressible. VL/Venous Duplex US, Unilateral Interpretation Summary There is no evidence of left lower extremity deep vein thrombosis. Left great s aphenous vein appears patent and compressible segmentally. Ordering Physician: Harvey Clark Referring Physician: Annabelle Foss Performed By: Lexis Farnsworth RVT
[2020-12-17] VITALS (13 sets, daily range): BP systolic 90–150; BP diastolic 50–69; PULSE 60–75; RESP 16–18; TEMP 36.2–36.8; O2SAT 90–100; BMI 31.0
[2020-12-17] MEDS: Scopolamine 1mg/72hr Patch 1 PATCH TD (07:00)
--- NOTE | 2020-12-17 10:10 | HP.PCM_ITS ---
History and Physical Date of Admission: 12/17/20 Date of Service: 12/06/20 MR#:[id number]:[id number]: MARY OBREGONRep #:[id number] Provider: ALEXEI Quigley/Sex: 75/M [place] [place] Intake Vital Signs 12/06/20 08:03 BMI 31.5 Intake Visit Reasons: left knee Chief Complaint: Neck Pain Allergies adhesive Allergy (Verified 12/02/20 10:22) Rash Ulijhml-Fgb-Wbv Reductase Inhibitor Adverse Reaction (Intermediate, Verified 12/02/20 10:22) Diarrhea lisinopril Adverse Reaction (Verified 12/02/20 10:22) Other losartan [Losartan] Adverse Reaction (Verified 12/02/20 10:22) Other [facility] Medical History Abnormal neutrophil count AMD (age related macular degeneration) Arteriovenous malformation (AVM) Arthritis 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 Bilateral inguinal hernia blood clot Calf tenderness Cardiology follow-up encounter (~05/28/20) cataracts Change in bowel habit CPAP (continuous positive airway pressure) dependence Diabetes Diverticulosis DVT (deep venous thrombosis) Essential (primary) hypertension External bleeding hemorrhoids Former smoker Gastric reflux GERD (gastroesophageal reflux disease) Gout Hemangioma Hematoma History of goiter History of irregular heartbeat History of kidney stones History of meniscus repair of left knee History of stress test (~06/05/20) Hypertension Hypothyroidism associated with surgical procedure Injury of head and neck Internal bleeding hemorrhoids Kidney stones Medial ankle sprain Neuropathy Nonobstructive atherosclerosis of coronary artery Normal echocardiogram (~06/05/20) Obesity SAMMI (obstructive sleep apnea) Shortness of breath on exertion Sleep apnea Superficial thrombophlebitis of arm Thyroid disease Tinnitus Type 2 diabetes mellitus with diabetic polyneuropathy Umbilical hernia without mention of obstruction or gangrene Vision loss Wears glasses Surgical History History of appendectomy History of cardiac catheterization History of cholecystectomy History of esophagogastroduodenoscopy (EGD) History of hemorrhoidectomy (~09/2020) History of left heart catheterization (2000) History of prostate surgery History of thyroidectomy Hx of bilateral inguinal hernia repair Hx of cataract surgery Hx of colonoscopy Hx of rhinoplasty Hx of umbilical hernia repair Family History Father Heart disease CAD (coronary artery disease) Sudden cardiac Myocardial infarction Mother Heart disease Hypertension Brother Flowers's esophagus Esophageal cancer Heart disease Sudden cardiac , Onset Age: 72 CAD (coronary artery disease) CVA (cerebral vascular accident) Depression Myocardial infarction Daughter Flowers's esophagus Other Blindness Social History Smoking Status: Former smoker quit date: 06/28/71 alcohol intake: never substance use type: does not use caffeine: Yes what type of physical activity do you participate in: walking frequency: 1-2 times per week seatbelt use: always HPI left knee Details: Parts of this documentation were recorded by a scribe, this documentation accurately reflects the service provided and the decisions made by , ALEXEI Cano 12/06/20 0802. MARY OBREGON is a 75 year old M here today for his IOVERA treatment for his left knee. Ortho Exam Left Knee Knee ROM: No ROM-Extension -20 to 0 and No ROM-Flexion 0-140 Examination: Yes med jt line tenderness and No Lat jt line tenderness Quad Atrophy: No KNEE: Inspection shows evident mild effusion in the knee. No erythema, ecchymosis/bruising, or other skin changes. Patient has no calf tenderness today and a negative Homans. Continue decreased range of motion. Neurovascularly intact. Office Procedures Iovera Procedure Details:: Preoperative diagnosis : Primary osteoarthritis of left knee. Postoperative diagnosis: Same Procedure: Cryotherapy with Iovera device to anterior femoral cutaneous nerve and 2 branches of the infrapatellar saphenous nerve III nerves in total Description of procedure: Patient was brought back to the procedure room the operative extremity was identified by both patient and physician. The PIP flexion crease was measured to the midpoint of the patella and this distance was divided in 3 resulting in 11.5 cm location proximal to the midpoint of the patella. This line was extended medial and lateral to the extent of the edges of the patella. This was our treatment line for the anterior femoral cutaneous nerve. A second treatment line was made 5 cm medial to the inferior pole of the patella and 5 cm distally. The leg was prepped with alcohol and Betadine. Lidocaine with epi was used along the treatment lines. Using the Iovera device treatment lines were treated with 1 minute cycles. Reproduction of paresthesias was monitored in the area of nerve distribution. Once all 3 nerves were treated across the 2 treatment lines patient was cleaned and a light dressing with 4 x 4 and Praful wrap was applied. Patient tolerated the procedure without complication. Coding Level of Care Code Attention Rn Gynecology Diagnoses Primary osteoarthritis of left knee M17.12 Comment CPT for Iovera treatment. Assessment and Plan Assessment and Plan (1) Primary osteoarthritis of left knee: Status: Chronic Plan - ALEXEI Rucker: Patient presents for Iovera treatment of the left knee preoperatively for left knee arthroplasty. Patient has no questions regarding the procedure today. Consent was signed in office today. Patient was given all his preoperative information, cleanses, and protein drink. He already has had his presurgery appointments. Iovera treatment was performed in office today without any abnormalities or problems. Patient tolerated procedure with minimal discomfort. No complications observed. Patient ice a few times for the next 1 to 2 days. Wait 24 hours to shower. No soaking/immersing for the next 2 to 3 days. Monitor notify of any erythema, warmth, discharge, increased pain, swelling, and/or any other signs or symptoms. This note was generated with [employer] dictation software. It may contain incorrect words, spelling, and punctuation that were not noted in checking the note before signing. Plan Details Other Orders: Orders: Iovera Today M25.569 Goals & Barriers: Goals Decrease pain Improve ROM Decrease inflammation Barriers Cervical DDD 12/06/20 0924<Electronically signed by Kraig LINDA>Date Kraig LINDA I have re-examined the patient. There are no clinical changes since date of exam
[2020-12-17 10:11] LABS: Bedside Glucose 259 mg/dL (70-110)
[2020-12-17] MEDS: Celecoxib 200 MG Capsule 400 MG PO (10:25)
[2020-12-17] MEDS: Acetaminophen 500 MG Tablet 1000 MG PO ×2 (10:25→22:11)
[2020-12-17] MEDS: Gabapentin 600 MG Tablet PO (10:25)
[2020-12-17] MEDS: Lactated Ringers 1,000 ML 100 ML IV (10:50)
[2020-12-17] MEDS: Insulin Lispro 100 UNIT/ML INSULN.PEN SC ×2 (11:13→16:19)
--- NOTE | 2020-12-17 12:30 | KNEE_PTH ---
PATIENT: MARY OBREGON LOC: MS3 U#:[id number] AGE/SX: 75/M ROOM: ND318 RE12/17/[address]: Dr. Harvey Clark DO : 1945 BED: 1 DIS: 12/18/2020 SPEC #: [id number] RECD: 12/17/20 15:22 STATUS: GEORGE GREWALLenka #: [id number] ARA: 12/17/20 12:[address]: Harvey Clark DEPT: SURGICAL PATHOLOGY RECD BY: Kayla Powell ENTERED: 12/18/20 07:18 SP TYPE: TOTAL KNEE OTHR DR: Dr. Annabelle Foss MD Tissues: Knee, NOS Procedures: Decalcification bone/plaque Surgery Specimen Level IV HEADER OPERATION: ERAS, total knee replacement robotic arm assist PRE-OP DIAGNOSIS: Osteoarthritis of left knee TISSUE SUBMITTED: Left knee bone and soft tissue MICROSCOPIC DIAGNOSIS Left knee bone and soft tissue, total knee replacement/resection: Pieces of bone with degenerative osteoarthritic changes. Fibroadipose tissue, fibroconnective tissue and reactive synovial tissue. Focal changes consistent with pseudogout. MICKY:carolann 12/23/2020 MICROSCOPIC DESCRIPTION Slides are reviewed. GROSS DESCRIPTION Received in fixative is one container labeled with the patient's name and designated left knee bone and soft tissue. The specimen consists of multiple fragments of perdomo-yellow bone measuring in aggregate 9 x 9 x 3 cm. Also in the specimen container are multiple fragments of yellow-white soft tissue measuring in aggregate 8 x 8 x 3 cm. A number of bony fragments contain articular surfaces consistent with tibial plateau and femoral condyle and displaying prominent osteophyte formation, eburnation, and bone erosion. [employer] Att[employer] sections are submitted in two cassettes as follows: 1 - soft tissue, 2 - bone after decalcification. / MICKY:carolann 12/18/20 TC:5 CPT: 54564, 26190
[2020-12-17] MEDS: Cefazolin 2 GM in 0.9% Normal Saline 100 ML IV (13:07)
[2020-12-17] MEDS: Betamethasone/Betamethasone 30 MG/5 ML Vial (14:45)
[2020-12-17] MEDS: Epinephrine (1 mg/ml) 1 MG/ML VIAL (14:45)
[2020-12-17] MEDS: 0.9% Normal Saline (Pres. free 10 ML Vial (14:45)
[2020-12-17] MEDS: Bupivacaine 0.5% PF 10 ML VIAL (14:45)
[2020-12-17] MEDS: Lactated Ringers 1,000 ML 125 ML IV ×2 (15:35→19:01)
--- NOTE | 2020-12-17 15:36 | OP.PCM_ITS ---
Report of Operation Description of Surgical Findings:: Preoperative diagnosis: Left knee DJD Postoperative diagnosis: Same Procedure: Left total knee arthroplasty CT guided Robotic Assisted Implant: Franck triathlon press fit femoral component size6, press-fit tibial baseplate size 6, press fit asymmetric patella size 38, polyethylene X3 size 9 CS Anesthesia: Spinal with adductor canal block Dumb Waiter Operator: Kraig LINDA Tourniquet time:30Minutes at 300 mmHg Complications: None Condition: Stable to PACU Estimated blood loss: 200 cc Indication for procedure: This is a 75-year-old male with long standing degenerative joint disease of the knee who has failed conservative treatment and wished to proceed with elective total knee arthroplasty. Risk benefits and alternatives were reviewed including; risk of bleeding, infection, nerve artery and tissue damage, continued pain, postoperative stiffness, venous thromboembolism, need for postoperative rehabilitation, mechanical feel to the knee, and expected postoperative course. The operative CT and templating was performed with component sizing Procedure: The patient was met in the preoperative holding area. The operative extremity was identified by both patient and physician and was marked. Patient was met by anesthesia. An adductor canal block was placed by anesthesia postoperatively the patient was brought back to the operating room on a wheeled cart and transferred to the operating table in the supine position. Anesthesia was started. A well-padded tourniquet was placed on the operative extremity. The patient was prepped and draped in the usual sterile fashion. A timeout was called to ensure the proper patient procedure and extremity were being contemplated. An Esmarch was used to exsanguinate the extremity. The tourniquet was inflated. A 10 blade scalpel was used to make a midline incision down through the skin and subcutaneous tissue. Skin retractors placed. Bovie was used to perform meticulous hemostasis. full-thickness flaps were elevated medial and lateral along the joint capsule. A deep blade scalpel was used to perform a medial parapatellar arthrotomy. The knee was brought to full extension. A Bovie was used to release the soft tissues off the most proximal aspect of the medial tibial plateau, a three-quarter inch curved osteotome was also used for this process. The infrapatellar fat pad was excised. The superior fat pad was excised partially anteriorolateraly and portion the anterioromedial pad was elevated from the femur. At this point our intra- articular femoral array was placed of a 45 degree angle proximal and posterior to the medial epicondyle. Our tibial array was placed greater than 1 hands breath below the incision at a 20 degree angle stab incisions were used for this case were attached and checked with the robotic software. Tourniquet was let down. At this point registration jordan were taken throughout the knee as well as checkpoints placed in the femur and tibia once the knee was registered then tensioned the medial and lateral ligaments in extension and 90 degrees of fl exion. We then used these numbers to adjust our components within parameters to balance the knee in both flexion and extension once this was done on our monitor we then proceeded with using the robotic arm to make our tibial plateau cut and anterior posterior and chamfer cuts and distal on the femur we then trialed and achieved the desired plan with a well-balanced knee. Lug holes were drilled in the femur the tibia preparation was completed with a fin punch and the patella was prepared by first using a caliper to ensure sufficient bone stock and a patellar reamer to remove the desired amount of bone locals were drilled for an asymmetric poly-. We then brought the knee through range of motion with excellent patellar tracking. We thoroughly irrigated the knee with a trial components were removed a posterior capsular injection with her standard cocktail was performed the aqua Mantis was also used to aid in hemostasis. Betadine rinse was allowed to sit and washed out components were press-fit into place. Aricept rinse was then used followed by several more rate liters of irrigation after it was allowed to sit. Joint capsule was closed with #1 Ethibond [id number] followed by Vicryl in the subcutaneous tissues staple in the skin arrays and checkpoints were removed prior to closure all counts were correct stab incisions were closed with a stable standard dressing in the form of Mepilex for the main incision Xeroform 4 x 4 and Tegaderm over pin site holes. Thigh-high BRENT hose applied over top of dressing. Patient tolerated the procedure well and was directed to PACU in stable condition no intraoperative complications
--- NOTE | 2020-12-17 15:55 | RAD_ITS ---
STUDY: X-RAY - LEFT KNEE REASON FOR EXAM: Male, 75 years old. post op -- AP and Lateral xray of operative knee in PACU TECHNIQUE: 2 view(s) of the knee. COMPARISON: 08/27/2020 FINDINGS: RAD/Knee 1 or 2 Views IMPRESSION: There is now noted total knee replacement with significant air and fluid in the suprapatellar area due to recent surgery. Excellent alignment of the prosthesis seen. Electronically Signed: Juancarlos Can, at 16:10 EDT Tel , Service support ,
[2020-12-17 16:15] LABS: Bedside Glucose 161 mg/dL (70-110)
[2020-12-17 17:46] LABS: Bedside Glucose 163 mg/dL (70-110)
[2020-12-17] MEDS: Cefazolin 1 GM/50 ML BAG IV (20:31)
[2020-12-17] MEDS: Senna/Docusate Sodium 1 Tablet 2 TABLET PO (22:11)
[2020-12-18 03:45] VITALS: BP 125/64; PULSE 73; RESP 16; TEMP 36.4; O2SAT 95
[2020-12-18] MEDS: Cefazolin 1 GM/50 ML BAG IV ×2 (05:57→12:12)
[2020-12-18 06:03] VITALS: BP 137/63; PULSE 72; RESP 16; TEMP 36.5; O2SAT 96
[2020-12-18] MEDS: Acetaminophen 500 MG Tablet 1000 MG PO ×2 (06:06→14:42)
[2020-12-18] MEDS: oxyCODONE 5 MG Tablet PO ×2 (06:06→11:11)
[2020-12-18] MEDS: Levothyroxine 125 MCG Tablet PO (06:06)
[2020-12-18 06:55] LABS: Hematocrit 42.6 % (40-54); Hemoglobin 14.3 g/dL (13.0-16.5); Mean Corp Hgb Conc 33.6 g/dL (32-36); Mean Corpuscular Hgb 31.4 pg (27.0-32.0); Mean Corpuscular Volume 93.6 fL (80-94); Mean Platelet Vol. 10.2 fl (6.2-12.0); Platelet Count 326 K/mm3 (150-450); RBC Distribution Width CV 12.9 % (11.6-14.6); RBC Distribution Width SD 44.7 fl (35.1-43.9); Red Blood Count 4.55 M/mm3 (4.6-6.2); White Blood Count 17.8 K/mm3 (4.4-11.0)
[2020-12-18 07:33] LABS: Anion Gap 11 (5-15); BUN 16 mg/dL (7-18); BUN/Creat Ratio 10.1 RATIO (10-20); Calcium,Total 8.5 mg/dL (8.5-10.1); Chloride 99 mmol/L (98-107); Creatinine, Serum 1.59 mg/dL (0.70-1.30); EST Glomerular Filtration Rate 45 mL/min (>60); Est Glom Filt Rate - Afr Amer 55 mL/min (>60); Estimated Creatinine Clearance 40.81 ml/min; Glucose 250 mg/dL (74-106); Potassium 3.4 mmol/L (3.5-5.1); Sodium Level 134 mmol/L (136-145)
[2020-12-18] MEDS: metFORMIN HCl 500 MG Tablet 1000 MG PO (07:46)
[2020-12-18] MEDS: Losartan Potassium 100 MG Tablet PO (07:47)
[2020-12-18] MEDS: Allopurinol 100 MG Tablet PO (07:47)
[2020-12-18] MEDS: LINAGLIPTIN 5 MG TABLET PO (07:47)
[2020-12-18 07:48] VITALS: PULSE 91
[2020-12-18] MEDS: amLODIPine 5 MG Tablet PO (07:48)
[2020-12-18] MEDS: hydroCHLOROthiazide 25 MG Tablet PO (07:48)
[2020-12-18] MEDS: Metoprolol Tartrate 25 MG Tablet PO (07:48)
[2020-12-18] MEDS: Calcitriol 0.25 MCG Capsule PO (07:48)
--- NOTE | 2020-12-18 08:01 | PCM.PN.ORT ---
Subjective Subjective Seen and examined. Doing well. No complaints. Ambulating well. No fevers chills nausea vomiting shortness of breath chest pain Objective Data Objective Data Vital Signs: Vital Signs Temp Pulse Resp BP Pulse Ox 97.7 F L 91 16 137/63 H 96 12/18/20 06:03 12/18/20 07:48 12/18/20 06:03 12/18/20 06:03 12/18/20 06:03 Oxygen Flow Rate (L/min) 6 Oxygen Delivery Method Room Air Weight: 216 lb 4.375 oz Body Mass Index (BMI) 31.0 Intake & Output: Intake and Output for Last 24 Hours 12/16/20 12/17/20 12/18/20 23:59 23:59 23:59 Intake Total 2627.67 / 2627.67 471.00 / 471.00 Output Total 0 / 0 Balance 2627.67 / 2627.67 471.00 / 471.00 Lab / Micro Data Result Diagrams: 12/18/20 06:40 12/18/20 06:40 Labs: Laboratory Results - last 24 hr 12/17/20 12/17/20 12/17/20 10:06 11:05 16:12 WBC RBC Hgb Hct MCV MCH MCHC RDW Std Deviation RDW Coeff of Deangelo Plt Count MPV Sodium Potassium Chloride Carbon Dioxide Anion Gap BUN Creatinine Estim Creat Clear Calc Est GFR (MDRD) Af Amer Est GFR (MDRD) Non-Af BUN/Creatinine Ratio Glucose Calcium POC Glucose 259 H 161 H Blood Type B POSITIVE Antibody Screen NEGATIVE 12/17/20 12/18/20 12/18/20 17:38 06:40 06:40 WBC 17.8 H RBC 4.55 L Hgb 14.3 Hct 42.6 MCV 93.6 MCH 31.4 MCHC 33.6 RDW Std Deviation 44.7 H RDW Coeff of Deangelo 12.9 Plt Count 326 MPV 10.2 Sodium 134 L Potassium 3.4 L Chloride 99 Carbon Dioxide 24.0 Anion Gap 11 BUN 16 Creatinine 1.59 H Estim Creat Clear Calc 40.81 Est GFR (MDRD) Af Amer 55 L Est GFR (MDRD) Non-Af 45 L BUN/Creatinine Ratio 10.1 Glucose 250 H Calcium 8.5 POC Glucose 163 H Blood Type Antibody Screen Micro: Microbiology 12/02/20 11:41 Swab (Method) Nasal Screen MRSA/MSSA - Final Radiography Diagnostic Testing: Radiology Impression Knee X-Ray 12/17/20 15:55 IMPRESSION: There is now noted total knee replacement with significant air and fluid in the suprapatellar area due to recent surgery. Excellent alignment of the prosthesis seen. Electronically Signed: Juancarlos Can, at 16:10 EDT Tel , Service support , Physical Exam Const alert and oriented x3 General Appearance: cooperative Extremity Extremity Narrative: Dressing clean dry and intact neurovascular intact no concern Assessment & Plan Assessment/Plan (1) S/P total knee arthroplasty: QUALIFIERS: Laterality: left Qualified Code(s): Z96.652 - Presence of left artificial knee joint PLAN: Postop day #1 left total knee arthroplasty. Doing well. Pain controlled. PT OT weightbearing as tolerated DC home start outpatient physical therapy follow-up 2 weeks dressing care per discharge instructions
--- NOTE | 2020-12-18 08:05 | PCM.DC ---
Discharge Instructions Diet Discharge Diet: No restrictions Activity Weight Bearing Status: Weight bearing as tolerated Dressing / Incision Call your doctor if you observe: Shortness of breath and Chest pain Additional Dressing/Incision Instructions:: Ice and elevate one week while not ambulating. Ambulation is encouraged. Weightbearing as tolerated. Use assistive devise for stability. Encourage FULL knee extension and flexion 1 time EVERY time you get up and down and MULTIPLE times per day. No showering 72 hours after surgery. Begin showering postop day #3. Remove the dressing prior to shower and gently wash with warm water and antibacterial soap then pat dry and place abdominal pad (or plain gauze) and BRENT hose over top. This is to be done daily. Do not submerge for 3 weeks. If not showering daily after the initial 72 hours then you must clean incision and change dressing daily. Do not allow animals near the incision area. Keep clean. Follow anticoagulation recommendations as prescribed. Do not take any NSAIDs while on blood thinner. Do not take any additional narcotic pain medication other than what was prescribed on your surgery day without discussing with physician. Narcotic medication can be addictive. Do not drink alcohol while taking narcotics. Start physical therapy. If you are not currently scheduled for physical therapy or you are unsure of appointment time please call office [facility] to arrange. Call Dr. Clark with any concerns. Follow Up Care Please Follow Up With: Harvey Clark DO When: 2 weeks Test Results: Test results from this visit will be discussed in further detail at your follow-up appointment, if applicable. Discharge Plan Admission Admit Date/Time: 12/17/20 17:23 Attending Provider: Harvey Clark Primary Care Provider: Annabelle Foss Discharge Orders/Prescriptions Prescriptions: New acetaminophen 500 mg Tablet 1,000 mg PO Q8 Qty: 100 RF: 0 oxycodone 5 mg Tablet 5 - 10 mg PO Q4H PRN PRN (Reason: Pain Score 4-10) 7 Days Qty: 60 RF: 0 Eliquis 2.5 MG tablet 2.5 mg PO BID Qty: 30 RF: 0 Continued calcitriol 0.25 mcg capsule 0.25 mcg PO MOWEFR RF: 0 losartan-hydrochlorothiazide [Hyzaar] 100-25 mg tablet 1 tab PO DAILY RF: 0 levothyroxine [Synthroid] 125 mcg tablet 125 mcg PO DAILY RF: 0 metoprolol tartrate 25 mg tablet 25 mg PO BID RF: 0 meloxicam 15 mg tablet 15 mg PO DAILY RF: 0 amlodipine 5 mg tablet 5 mg PO DAILY RF: 0 allopurinol 100 mg tablet 100 mg PO DAILY RF: 0 Janumet XR 100-1,000 mg tablet, ER multiphase 24 hr 1 tab PO DAILY RF: 0 Referrals / Follow Up: Annabelle Foss MD [Primary Care Provider] -
--- NOTE | 2020-12-18 09:30 | CASEMGMT ---
GRISEL WELCH BAIL BONDSMAN CM to room to meet with patient for initial transition planning/care coordination assessment. GRISEL WELCH introduced self and role at [facility]. Pt voices understanding and consents to assessment at this time. Pt sitting up in chair in room in no distress at this time. Pt is A/O at this time and answers all questions appropriately. Care providers, pharmacy, and demographics verified/updated at this time. PCP: Dr Foss Specialists: Dr Clark--ortho, Dr Deal--cardiology, Dr Marina--oncology, Dr Shetty--pulmonology Preferred Pharmacy: [facility] Retail Insurance: [place], [employer] Prescription Benefit: Yes. Pt will be discharged home on Eliquis, which has already been e-scribed to [facility] pharmacy. Pt states he has been on Eliquis in the past, and he does not think he has used the 30-day savings card in the past. Call placed to [facility] pharmacy. Eliquis savings card applied and pt will have $0 co-pay. Pt made aware. Living Will/HPOA: Has both LW and HPOA, who is his , Julieta. LNOK: , Julieta Living Arrangements: Lives w/ and 21-yr-old granddaughter live w/them. They live in a one-story home w/3 steps to enter thru front entrance, 2 thru the garage. Was independent w/ADL's and /pt shared home mgmt tasks. able to help as needed. 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 GRISEL WELCH provided pt w/[place] opportunity for [facility] w/disabilities for visually impaired fact sheet w/# to contact for resources. [facility] him [id number] to learn braille, if needed in the future. Transportation: DME: States has the following DME: functioning glucometer w/supplies, CPAP, grab bars. Did not use any DME prior to surgery. Has a shower chair, cane, and walker to use now. getting RTS today. Pt states no need for further DME at this time. HHC/SNF: No history of either. Pt has OP therapy appt scheduled @ Dr [facility] tomorrow, 12/19, @ 1100. Pt wishes to return home and states has no concerns with going home at time of discharge. CM to follow for any further discharge planning/needs. Pt voices no further concerns/needs at this time. Advised pt to ask for CM if any further questions/concerns/needs arise. Voices understanding. PLAN: Home w/spousal support and OP therapy. Rosina BACA RN CM
[2020-12-18] MEDS: APIXABAN 2.5 MG TABLET PO (09:32)
[2020-12-18 09:51] VITALS: O2SAT 96
[2020-12-18 12:00] VITALS: BP 137/82; PULSE 81; RESP 18; TEMP 36.6; O2SAT 99
== END 2020-12-18 14:48 | disposition home or self-care (01) ==
LOC: SDC 17:30 → MS3 17:30
PROVIDERS: Anesthesiology; Admitting Provider Orthopaedic Surgery; PCP Internal Medicine; Referring Provider Orthopaedic Surgery; Visit Provider Orthopaedic Surgery
PROC: 0SRD0JZ Replacement of Left Knee Joint with Synthetic Substitute, Open Approach (ICD-10-PCS; CPT 27447; principal; 2020-12-17 12:00)
DX: M17.12 Unilateral primary osteoarthritis, left knee (principal); N18.6 End stage renal disease; M54.2 Cervicalgia; Q27.30 Arteriovenous malformation, site unspecified; K21.9 Gastro-esophageal reflux disease without esophagitis; I10 Essential (primary) hypertension; E11.42 Type 2 diabetes mellitus with diabetic polyneuropathy; E03.9 Hypothyroidism, unspecified; M10.9 Gout, unspecified; G47.33 Obstructive sleep apnea (adult) (pediatric); Z87.891 Personal history of nicotine dependence; Z86.718 Personal history of other venous thrombosis and embolism; Z79.899 Other long term (current) drug therapy; D75.1 Secondary polycythemia; E66.9 Obesity, unspecified; Z68.31 Body mass index [BMI] 31.0-31.9, adult; E78.2 Mixed hyperlipidemia
CPT/HCPCS: 01402; 27447; 64447; 36415; 73560; 80048; 82962; 83735; 85027; 86850; 86900; 86901; 87077; 87081; 88305; 88311; 93971; 94762; 96361; 96365; 96366; 97110; 97162; 97166; 97530; 97535; 99218; 99251; C1776; J7120; G0378; G0379; G0463; J0702; J3490

== ENCOUNTER 2021-01-23 12:30 | Outpatient (RCR) | payer MEDICARE, OTHER, SELFPAY ==
[2020-11-06 09:15] VITALS: BMI 31.5
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
--- NOTE | 2020-12-19 11:51 | HP.PTREVAL_ITS ---
Dr. Harvey Clark, DO, It has been my pleasure to treat MARY OBREGON over the last 2 visits for L knee OA/pre hab prior to L A. Please see the progress note below for an update on the physical therapy plan of care! Subjective: Total Knee Replacement Left by Dr. Tucker - December 17, 2020 at [facility]- stayed overnight then headed home. Has help at home with his - 2.5 steps to enter with hand rail- no problems getting in/out. Single story home once he is inside- basement steps as needed. Fully I prior to surgery- he does not drive due to eye sight. Worst: 12/05 Agg: moving around Eases: rest and ice. Best: 08/07. Is taking the medication as recommended. Pain is located along the top of the knee and the medial side. Does have ashwin swelling. Describes the pain as dull when sitting but if he gets up and walking he gets a sharp pain. Prior to surgery no AD- currently using a FWW. Sleep: not disturbed- recliner then plans to go back to bed. PMHx/Meds: no changes since he left [facility]. He had two PT sessions yesterday at the hospital- could bend to around 80 degrees. Objective/Function: Posture: FH, RS- can correct with verbal and tactile cues but does not maintain. Gait: FWW- step to pattern- decreased stance on left LE with poor heel/toe pattern due to lack of ROM. Observation: incision covered in bandage- no seepage or blood noted. BRENT Hose on. Stairs: step to pattern both asc/desc with bilateral HR. Palpation: tender along medial and lateral joint line. Girth: Patella: 45cm, 6 above: 50.5 cm. ROM: 0-80 degrees. Strength: Hip: 4-/5 throughout SLR: 3/5, Knee: flexion: 9.0 Ext: 10.0 Ankle: 5/5. Special Test: TU.96 WOMAC: 35.42 Plan Plan: 12/19/2020: Re-assessment s/p- new goals established. Re-viewed current HEP from hospital and pre-hab. Hold chart until after L TUA surgery on December 17, 2020. Then, a reassessment with occur with new goals set. Goals Goal 1:: Patient will be I with HEP and progression Goal Time Frame: 4-6 Weeks Goal 2:: Patient will ambulate >300 feet with normalized gait pattern and LRD Goal Time Frame: 4-6 Weeks Goal 3:: Patient will demo 0-125 degrees of ROM in the left knee Goal Time Frame: 4-6 Weeks Goal 4:: Patient will asc/desc 8 stairs recip with 1 HR and good control Goal Time Frame: 4-6 Weeks Goal 5:: Patient will report no more than 2/10 pain when returning to all normal ADL's. Goal Time Frame: 4-6 Weeks Anticipated Interventions Please do not hesitate to contact me at [phone] by phone or if you have questions or concerns regarding this new plan of care! Sincerely, Era Escalante DPT
--- NOTE | 2021-01-23 13:11 | HP.PTDCSUM ---
It has been my pleasure to treat MARY OBREGON referred by Dr. Harvey Clark DO, with the diagnosis of L knee OA/pre hab prior to L CORRY for a total of 9 visit(s). Discharge Date: Please see the following information for a summary of their discharge status. Subjective: Patient reports that he is having pain late in the day but it goes away quickly- he is starting to do a lot of walking and moving around. Sleep through the night without pain. Still is not doing heavy lifting. L knee pain Pain Intensity (Out of 10): 0 % Improvement: 80 Objective/Function: Posture: good throughout re-evaluation in hard back chair. Gait: slightly antalgic- mild hip drop. Observation: good no s/s of infection. Stairs: asc/desc no HR. Palpation: not tender. Girth: Patella: 44cm, 6 above: 49 cm. ROM: 0-115 degrees. Strength: Hip: 4+/5 throughout SLR: 4+/5, Knee: flexion: 19.3 Ext: 30.8 Ankle: 5/5. Special Test: TU.02 WOMAC: 10.4 Goal 1:: Patient will be I with HEP and progression Goal Progress: Goal Met Goal 2:: Patient will ambulate >300 feet with normalized gait pattern and LRD Goal Progress: Goal Met Goal 3:: Patient will demo 0-125 degrees of ROM in the left knee Goal Progress: Progressing Goal 4:: Patient will asc/desc 8 stairs recip with 1 HR and good control Goal Progress: Goal Met Goal 5:: Patient will report no more than 2/10 pain when returning to all normal ADL's. Goal Progress: Goal Met Plan: Discharge to home exercise program If there are questions or concerns regarding this patient's physical therapy, please feel free to call me at [phone]. Thank you for the referral of this patient. Sincerely, Era Escalante, ADAMST Balance/Gait/Functional tests - Balance/Special Test Scores Lower Extremity Functional Score: 52
== END 2021-01-23 19:00 | disposition home or self-care (01) ==
LOC: PT 12:30
PROVIDERS: PCP Internal Medicine; Referring Provider Orthopaedic Surgery; Visit Provider Orthopaedic Surgery
DX: M17.12 Unilateral primary osteoarthritis, left knee (principal); Z96.652 Presence of left artificial knee joint
CPT/HCPCS: 97110; 97161; 97164; 97530

== ENCOUNTER → 2021-02-20 10:57 | Outpatient (CLI) | payer MEDICARE, OTHER, SELFPAY ==
[2021-02-20 12:37] LABS: Absolute Lymphocyte Count 2.72 X10^3/uL (0.83-4.51); Absolute Neutrophil Count 8.4 X10^3/uL (2.0-7.7); Basophil# 0.13 X10^3/uL; Eosinophil# 0.34 X10^3/uL; Eosinophils% 2.7 % (0-5); Hemoglobin 13.8 g/dL (13.0-16.5); Lymphocyte # 2.72 X10^3/ul (0.83-4.51); Lymphocyte % 21.8 % (19-41); Mean Corp Hgb Conc 32.1 g/dL (32-36); Mean Corpuscular Hgb 30.5 pg (27.0-32.0); Mean Corpuscular Volume 95.1 fL (80-94); Mean Platelet Vol. 10.9 fl (6.2-12.0); Monocyte# 0.79 X10^3/uL; Monocyte% 6.3 % (0-10); NRBC Flagged by Analyzer 0 % (0-5); Neutrophil # 8.35 X10^3/uL (2.7-7.7); Neutrophil % 66.9 % (47-70); Platelet Count 322 K/mm3 (150-450); RBC Distribution Width CV 13.6 % (11.6-14.6); RBC Distribution Width SD 47.8 fl (35.1-43.9); Red Blood Count 4.52 M/mm3 (4.6-6.2); White Blood Count 12.5 K/mm3 (4.4-11.0)
[2021-02-20 12:50] LABS: ALB/GLOB Ratio 0.7 RATIO (0.9-2.4); AST(SGOT) 44 U/L (15-37); Alanine Aminotransfer ALT/SGPT 42 U/L (16-61); Albumin, Serum 3.4 g/dL (3.2-5.0); Alkaline Phosphatase 88 U/L (45-117); Anion Gap 7 (5-15); BUN 15 mg/dL (7-18); BUN/Creat Ratio 11.4 RATIO (10-20); Calcium,Total 9.3 mg/dL (8.5-10.1); Chloride 98 mmol/L (98-107); Creatinine, Serum 1.32 mg/dL (0.70-1.30); EST Glomerular Filtration Rate 56 mL/min (>60); Est Glom Filt Rate - Afr Amer 68 mL/min (>60); Globulin 4.8 g/dL (2.2-4.2); Glucose 223 mg/dL (74-106); PSA,Total- Diagnostic 0.16 ng/mL (0.0-4.0); Potassium 3.5 mmol/L (3.5-5.1); Protein, Total 8.2 g/dL (6.4-8.2); Sodium Level 133 mmol/L (136-145)
== END ==
PROVIDERS: PCP Internal Medicine; Referring Provider Internal Medicine; Visit Provider Internal Medicine
DX: I10 Essential (primary) hypertension (principal); R35.0 Frequency of micturition
CPT/HCPCS: 36415; 80053; 84153; 85025

== ENCOUNTER 2021-04-16 11:21 | Day surgery (SDC) | payer MEDICARE, OTHER, SELFPAY ==
[2021-04-10 10:04] LABS: Hemoglobin A1c 7.4 % (3.8-5.6)
[2021-04-10 10:07] LABS: Thyroid Stim Hormone (TSH) 6.33 uIU/mL (0.358-3.74)
[2021-04-16 12:00] VITALS: BP 138/58; PULSE 54; RESP 16; TEMP 36.6; O2SAT 98; BMI 31.5
[2021-04-16] MEDS: Lactated Ringers 1,000 ML 100 ML IV (12:10)
[2021-04-16 12:16] LABS: Bedside Glucose 167 mg/dL (70-110)
--- NOTE | 2021-04-16 14:41 | HP.PCM_ITS ---
HPI - General HPI Narrative MARY OBREGON, is a 75 M who presents for incision of bladder neck contracture with a laser. 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 Bilateral inguinal hernia Calf tenderness Cardiology follow-up encounter cataracts Change in bowel habit CPAP (continuous positive airway pressure) dependence Degeneration of intervertebral disc of cervical region Diabetes Diverticulosis DVT (deep venous thrombosis) Essential (primary) hypertension External bleeding hemorrhoids Former smoker Gastric reflux GERD (gastroesophageal reflux disease) Gout Hemangioma Hematoma History of goiter History of irregular heartbeat History of kidney stones History of meniscus repair of left knee Hypertension Hypothyroidism associated with surgical procedure Injury of head and neck Internal bleeding hemorrhoids Kidney stones Left knee DJD Medial ankle sprain Neck pain Neuropathy Nonobstructive atherosclerosis of coronary artery Obesity SAMMI (obstructive sleep apnea) Polycythemia Primary osteoarthritis of left knee Segmental and somatic dysfunction of cervical region Segmental and somatic dysfunction of thoracic region Shortness of breath on exertion Sleep apnea Superficial thrombophlebitis of arm Thyroid disease Tinnitus Type 2 diabetes mellitus with diabetic polyneuropathy Umbilical hernia without mention of obstruction or gangrene Vision loss Wears glasses Home Medications calcitriol 0.25 mcg capsule 0.25 mcg PO MOWEFR 03/15/18 [History Last Taken 12/16/20 08:00] levothyroxine [Synthroid] 125 mcg PO DAILY 12/02/20 [History Last Taken 04/16/21 07:00] metoprolol tartrate 25 mg PO BID 12/02/20 [History Last Taken 04/16/21 07:00] Janumet XR 1 tab PO DAILY 12/17/20 [History Last Taken 12/16/20 08:00] allopurinol 100 mg PO DAILY 12/17/20 [History Last Taken 12/16/20 08:00] miscellaneous medical supply 1 ea MISCELLANEOUS DAILY 360 Days #1 ea 01/01/21 [Rx Last Taken Unknown] amlodipine 5 mg tablet 5 mg PO DAILY #90 tab 02/20/21 [Rx Last Taken 04/16/21 07:00] losartan 100 mg-hydrochlorothiazide 25 mg tablet 1 tab PO DAILY #90 tab 03/27/21 [Rx Last Taken Unknown] cephalexin 500 mg capsule 2,000 mg PO ONCE #4 cap 03/28/21 [Rx Last Taken Unknown] ciprofloxacin HCl [Cipro] 500 mg PO BID #14 tab 04/16/21 [Rx Last Taken Unknown] ibuprofen 600 mg PO Q6H PRN 7 Days #14 tab 04/16/21 [Rx Last Taken Unknown] Allergy/AdvReac Type Severity Reaction Status Date / Time adhesive Allergy Rash Verified 04/16/21 11:59 Audspsl-Tuo-Ipm Reductase AdvReac Intermediate Diarrhea Verified 04/16/21 11:59 Inhibitor lisinopril AdvReac Other Verified 04/16/21 11:59 losartan [Losartan] AdvReac Other Verified 04/16/21 11:59 Family History Father Heart disease CAD (coronary artery disease) Sudden cardiac Myocardial infarction Mother Heart disease Hypertension Brother Flowers's esophagus Esophageal cancer Heart disease Sudden cardiac , Onset Age: 72 CAD (coronary artery disease) CVA (cerebral vascular accident) Depression Myocardial infarction Daughter Flowers's esophagus Other Blindness Surgical History (Updated 04/09/21 @ 10:03 by Rohini Schilling) History of appendectomy History of cardiac catheterization (2000) History of cholecystectomy History of esophagogastroduodenoscopy (EGD) History of hemorrhoidectomy (~09/2020) History of left knee replacement History of prostate surgery History of thyroidectomy History of total knee replacement Hx of bilateral inguinal hernia repair Hx of cataract surgery Hx of colonoscopy Hx of rhinoplasty Hx of umbilical hernia repair Social History Smoking Status: Former smoker quit date: 06/28/71 alcohol intake: never substance use type: does not use caffeine: Yes what type of physical activity do you participate in: walking frequency: 1-2 times per week seatbelt use: always Vital Signs Vital Signs Vital Signs: 04/16/21 12:00 Temperature 98 F Temperature Source Temporal Pulse Rate 54 L Respiratory Rate 16 Respiratory Pattern Normal Blood Pressure 138/58 H Blood Pressure Mean 84 Blood Pressure Source Monitor Blood Pressure Position Semi-Fowlers Blood Pressure Location Right Arm Pulse Ox 98 Oxygen Delivery Method Room Air Weight Weight: 99.79 kg Body Mass Index (BMI) 31.5 Results Lab / Micro [facility] Labs: Laboratory Results - last 24 hr 04/16/21 11:49: POC Glucose 167 H
--- NOTE | 2021-04-16 14:42 | DCINST_ITS ---
Discharge Instructions Diet Discharge Diet: Light diet - advance as tolerated and Soft diet Activity Discharge Activity: May Not Drive (while taking narcotic pain medications.) Dressing / Incision Call your doctor if you observe: Fever of 101 or Higher Catheter: Davis to leg bag and Davis to large bag Drain: [place] Follow Up Care Please Follow Up With: Poncho Mccrary MD When: Call [phone] for an appointment Test Results: Test results from this visit will be discussed in further detail at your follow-up appointment, if applicable. Discharge Plan Admission Primary Reason for Your Visit: incision of bladder neck Attending Provider: Poncho Mccrary Primary Care Provider: Annabelle Foss Consulting Providers: Albert Johnson Discharge Orders/Prescriptions Prescriptions: New ciprofloxacin HCl [Cipro] 500 mg tablet 500 mg PO BID Qty: 14 RF: 0 ibuprofen 600 mg tablet 600 mg PO Q6H PRN (Reason: pain) 7 Days Qty: 14 RF: 0 No Action calcitriol 0.25 mcg capsule 0.25 mcg PO MOWEFR RF: 0 losartan-hydrochlorothiazide [Hyzaar] 100-25 mg tablet 1 tab PO DAILY Qty: 90 RF: 3 amlodipine 5 mg tablet 5 mg PO DAILY Qty: 90 RF: 3 miscellaneous medical supply Misc 1 ea miscellaneous DAILY 360 Days Qty: 1 RF: 0 levothyroxine [Synthroid] 125 mcg tablet 125 mcg PO DAILY RF: 0 metoprolol tartrate 25 mg tablet 25 mg PO BID RF: 0 allopurinol 100 mg tablet 100 mg PO DAILY RF: 0 Janumet XR 100-1,000 mg tablet, ER multiphase 24 hr 1 tab PO DAILY RF: 0 cephalexin 500 mg capsule 2,000 mg PO ONCE Qty: 4 RF: 0 Referrals / Follow Up: Poncho Mccrary MD [STAFF PHYSICIAN] - Annabelle Foss MD [Primary Care Provider] - Disposition Disposition (needs filled in before D/C Order can be placed): Home, Self Care
--- NOTE | 2021-04-16 14:56 | OP.PCM_ITS ---
Report of Operation Date of Procedure: 04/16/21 Pre-Operative Diagnosis: Bladder neck contracture Post-Operative Diagnosis: The same Surgery/Procedure Performed:: Transurethral resection of the bladder neck using the laser asher Description of Surgical Findings:: 75-year-old male who had a history of prior surgery of the prostate he has been having difficulty with emptying his bladder obstructive symptoms on cystoscopy found to have a bladder neck contracture because of this I recommended we do incision of the bladder neck to open up the prostate and this should hopefully alleviate his urinary symptoms patient understands no guarantees that the incision the bladder neck will help but given his obstructive symptoms I think it will make a benefit. Patient was taken back to the operating room at the smooth induction of general anesthesia he was placed in dorsolithotomy position. I went into the bladder with a 21 Vincentian rigid cystourethroscope I used a 800 ?m laser fiber and then we hooked it up to the thelium laser setting was at 50 W and then incised at the 5:00 in the 7 o'clock position in the bladder neck contracture following the incision to the ureteral orifice in the left and right side after the incision was done there was minimal bleeding wide open channel did a flow test had a wide open flow no injury to the sphincter the verumontanum was intact I then remove the cystoscope and a 20 Vincentian catheter was put into the bladder go home with a 20 Vincentian catheter over the weekend I will see him next week for catheter removal. Surgeon: Hermann Type of Anesthesia: General Drains: 20 fr millan Admit VTE Documentation VTE Present on Admission: No VTE Mechan Device Prophylaxis: SCD's VTE Pharm Prophylaxis ordered?: No
[2021-04-16] MEDS: Cefazolin 2 GM in 0.9% Normal Saline 100 ML IV (15:00)
[2021-04-16 15:30] VITALS: BP 138/58; BP 149/75; PULSE 57; RESP 14; TEMP 35.8; O2SAT 96
[2021-04-16 15:45] VITALS: BP 138/58; BP 159/86; PULSE 59; RESP 18; O2SAT 94
[2021-04-16 16:00] VITALS: BP 135/74; BP 138/58; PULSE 54; RESP 16; O2SAT 95
[2021-04-16 16:01] LABS: Bedside Glucose 130 mg/dL (70-110)
[2021-04-16 16:20] VITALS: BP 138/58; BP 145/70; PULSE 53; RESP 16; TEMP 35.8; O2SAT 96
[2021-04-16 17:12] VITALS: BP 131/69; BP 138/58; PULSE 54; RESP 16; TEMP 36.4; O2SAT 92
== END 2021-04-16 17:13 | disposition home or self-care (01) ==
LOC: SDC 11:22 → AC 11:22
PROVIDERS: Anesthesiology; PCP Internal Medicine; Referring Provider Urology; Visit Provider Urology
PROC: 0V508ZZ Destruction of Prostate, Via Natural or Artificial Opening Endoscopic (ICD-10-PCS; CPT 52648; principal; 2021-04-16 13:40)
DX: N32.0 Bladder-neck obstruction (principal); I10 Essential (primary) hypertension; K21.9 Gastro-esophageal reflux disease without esophagitis; E03.9 Hypothyroidism, unspecified; E66.9 Obesity, unspecified; G47.33 Obstructive sleep apnea (adult) (pediatric); M17.12 Unilateral primary osteoarthritis, left knee; E11.42 Type 2 diabetes mellitus with diabetic polyneuropathy; Z86.718 Personal history of other venous thrombosis and embolism; Z87.891 Personal history of nicotine dependence; Z79.899 Other long term (current) drug therapy
CPT/HCPCS: 00912; 52500; 36415; 82962; 83036; 84443; J7120; J2405

== ENCOUNTER 2021-07-29 14:14 | Outpatient (CLI) | payer MEDICARE, OTHER, SELFPAY ==
[2021-07-29 15:56] LABS: ALB/GLOB Ratio 0.8 RATIO (0.9-2.4); AST(SGOT) 34 U/L (15-37); Alanine Aminotransfer ALT/SGPT 39 U/L (16-61); Albumin, Serum 3.3 g/dL (3.2-5.0); Alkaline Phosphatase 81 U/L (45-117); Anion Gap 4 (5-15); BUN 17 mg/dL (7-18); BUN/Creat Ratio 12.8 RATIO (10-20); Calcium,Total 8.8 mg/dL (8.5-10.1); Chloride 105 mmol/L (98-107); Creatinine, Serum 1.33 mg/dL (0.70-1.30); EST Glomerular Filtration Rate 56 mL/min (>60); Est Glom Filt Rate - Afr Amer 67 mL/min (>60); Globulin 4.4 g/dL (2.2-4.2); Glucose 149 mg/dL (74-106); Protein, Total 7.7 g/dL (6.4-8.2); Sodium Level 136 mmol/L (136-145); T4 Free Direct 1.15 ng/dL (0.76-1.46); Thyroid Stim Hormone (TSH) 5.41 uIU/mL (0.358-3.74)
== END 2021-07-29 23:59 | disposition short-term general hospital (02) ==
LOC: LAB 14:16
PROVIDERS: PCP Internal Medicine; Visit Provider Internal Medicine Endocrinology, Diabetes & Metabolism
DX: E11.42 Type 2 diabetes mellitus with diabetic polyneuropathy (principal); I10 Essential (primary) hypertension; E89.0 Postprocedural hypothyroidism; E78.2 Mixed hyperlipidemia
CPT/HCPCS: 36415; 80053; 84439; 84443

== ENCOUNTER 2021-08-08 05:22 | Day surgery (SDC) | payer MEDICARE, OTHER, SELFPAY ==
[2021-08-08] VITALS (11 sets, daily range): BP systolic 138–182; BP diastolic 68–96; PULSE 58–64; RESP 18; TEMP 36–36.8; O2SAT 93–100; BMI 32.5
--- NOTE | 2021-08-08 | GASB_PTH ---
PATIENT: MARY OBREGON LOC: EN U#:[id number] AGE/SX: 75/M ROOM: RE08/08/[address]: Dr. Mauri Rowell MD : 1945 BED: DIS: 08/08/2021 SPEC #: [id number] RECD: 08/08/21 14:17 STATUS: GEORGE OTILIA #: [id number] ARA: 08/08/21 00:[address]: Mauri Rowell DEPT: SURGICAL PATHOLOGY RECD BY: [place] ENTERED: 08/11/21 11:20 SP TYPE: Gastric Bx OTHR DR: Dr. Annabelle Foss MD Tissues: A - Gastric mucous membrane B - Esophageal mucous membrane C - Esophageal mucous membrane D - Esophageal mucous membrane E - Esophageal mucous membrane Procedures: Surgery Specimen Level IV HEADER OPERATION: EGD (MOD) PRE-OP DIAGNOSIS: Flowers?s esophagus TISSUE SUBMITTED: A - Antrum, B - Biopsy distal esophagus at 40 cm, C - Biopsy distal esophagus at 35 cm, D - Biopsy distal esophagus at 30 cm, E - Biopsy distal esophagus at 27 cm MICROSCOPIC DIAGNOSIS A. Antrum, biopsy: Mild gastritis. See microscopic description and comment. B. 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 Focal chronic inflammation. Negative for dysplasia. See comment. C. 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 Focal chronic inflammation. Negative for dysplasia. See comment. D. 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 Focal chronic inflammation. Negative for dysplasia. See comment. E. 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 Focal chronic inflammation. Negative for dysplasia. See comment. SJ:rg 08/12/2021 COMMENT A. The results of immunohistochemistry for Helicobacter pylori will be reported separately ([id number]). B-E. Immunohistochemistry ([id number]) for P53 and Ki-67 will be performed and results will be reported separately. MICROSCOPIC DESCRIPTION Slides are reviewed. A. The specimen shows fragments of gastric mucosa with chronic inflammatory cell infiltrates in the lamina propria consisting of lymphocytes and plasma cells, consistent with mild chronic gastritis. GROSS DESCRIPTION A - Received in fixative is one container labeled with the patient's name and designated antrum. The specimen consists of one irregular fragment of light perdomo soft tissue that measures 0.5 x 0.3 x 0.1 cm. The specimen is totally submitted in one cassette. B - Received in fixative is one container labeled with the patient's name and designated distal esophagus at 40 cm. The specimen consists of multiple irregular fragments of light perdomo soft tissue that in aggregate measure 1 x 0.5 x 0.1 cm. The specimen is totally submitted in one cassette. C - Received in fixative is one container labeled with the patient's name and designated distal esophagus at 35 cm. The specimen consists of multiple irregular fragments of light perdomo soft tissue that in aggregate measure 1.2 x 0.3 x 0.1 cm. The specimen is totally submitted in one cassette. D - Received in fixative is one container labeled with the patient's name and designated distal esophagus at 30 cm. The specimen consists of multiple irregular fragments of light perdomo soft tissue that in aggregate measure 1.3 x 0.3 x 0.1 cm. The specimen is totally submitted in one cassette. E - Received in fixative is one container labeled with the patient's name and designated distal esophagus at 27 cm. The specimen consists of multiple irregular fragments of light perdomo soft tissue that in aggregate measure 2 x 0.8 x 0.1 cm. The specimen is totally submitted in one cassette. / SJ:rg 08/11/2021 TC:3 CPT: 91009 x5
--- NOTE | 2021-08-08 | IMM_PTH ---
PATIENT: MARY OBREGON LOC: EN U#:[id number] AGE/SX: 75/M ROOM: RE08/08/[address]: Dr. Mauri Rowell MD : 1945 BED: DIS: 08/08/2021 SPEC #: [id number] RECD: 08/12/21 14:54 STATUS: GEORGE REQ #: [id number] ARA: 08/08/21 00:[address]: Mauri Rowell DEPT: IMMUNOHISTOCHEMISTRY RECD BY: Delaney Juarez ENTERED: 08/12/21 14:56 SP TYPE: IMMUNO OTHR DR: Dr. Annabelle Foss MD Tissues: B - Esophagus, NOS C - Esophagus, NOS D - Esophagus, NOS E - Esophagus, NOS A - Stomach, NOS Procedures: H Pylori (initial) P53 (initial) KI-67 (add) PHYSICIAN & INSTITUTION [place] [address] SPECIMEN INFORMATION: Tissue Source: A - Antrum, B - Distal esophagus at 40 cm, C - Distal esophagus at 35 cm, D - Distal esophagus at 30 cm, E - Distal esophagus at 27 cm Clinical Info: Flowers?s esophagus Specimen Number: [id number] A-E CPT code: 27850 x5, 60501 x4 METHODOLOGY: Deparaffinized sections of prefer/formalin-fixed tissue or PAP/DQ stained slides are incubated with monoclonal/polyclonal antibodies/oligonucleotide probes. Localization is made via biotin free immunoperoxidase method. Appropriate controls are performed and reacted as expected. Results on target cell population are indicated in the following table: RESULTS: ANTIBODY / CLONE RESULT Block A H Pylori (polyclonal) negative Block B P53 (DO-7) negative Ki-67 (30-9) positive, very low Block C P53 (DO-7) negative Ki-67 (30-9) positive, very low Block D P53 (DO-7) negative Ki-67 (30-9) positive, very low Block E P53 (DO-7) negative Ki-67 (30-9) positive, very low These tests were developed and their performance characteristics determined by [facility]. They may not have been cleared or approved by the U.[place]. Food and Drug Administration. The FDA has determined that such clearance or approval is not necessary. The above immunohistochemical/dualISH markers are ordered and reviewed by the Pathologist. INTERPRETATION: A. Antrum, biopsy: Negative for Helicobacter pylori organisms. B. Distal esophagus at 40 cm, biopsy: Negative for dysplasia. C. Distal esophagus at 35 cm, biopsy: Negative for dysplasia. D. Distal esophagus at 30 cm, biopsy: Negative for dysplasia. E. Distal esophagus at 27 cm, biopsy: Negative for dysplasia. SJ:carolann 08/13/2021
--- NOTE | 2021-08-08 06:11 | HP.PCM_ITS ---
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 Previously he was on omeprazole 20 mg daily but that got stopped by primary care. He now takes Tums but he has symptomatic reflux disease. No bright red blood per rectum or melena. No cu rrent abdominal pain. This past year he was hospitalized for urologic procedure and also left total knee. He did have DVT associated with his knee surgery. He was on Eliquis. He is now off all blood thinners. He has not experienced Covid-19. COUNTS INCLUDE 234 BEDS AT THE [facility] Medical History (Updated 08/08/21 @ 06:[address] 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 Bilateral inguinal hernia Calf tenderness Cardiology follow-up encounter cataracts Change in bowel habit CPAP (continuous positive airway pressure) dependence Degeneration of intervertebral disc of cervical region Diabetes Diverticulosis DVT (deep venous thrombosis) Essential (primary) hypertension External bleeding hemorrhoids Former smoker Gastric reflux GERD (gastroesophageal reflux disease) Gout Hemangioma Hematoma History of goiter History of irregular heartbeat History of kidney stones History of meniscus repair of left knee Hypertension Hypothyroidism associated with surgical procedure Injury of head and neck Internal bleeding hemorrhoids Kidney stones Left knee DJD Medial ankle sprain Neck pain Neuropathy Nonobstructive atherosclerosis of coronary artery Obesity Obesity SAMMI (obstructive sleep apnea) Polycythemia Primary osteoarthritis of left knee Segmental and somatic dysfunction of cervical region Segmental and somatic dysfunction of thoracic region Shortness of breath on exertion Sleep apnea Superficial thrombophlebitis of arm Thyroid disease Tinnitus Type 2 diabetes mellitus with diabetic polyneuropathy Umbilical hernia without mention of obstruction or gangrene Vision loss Wears glasses Home Medications calcitriol 0.25 mcg capsule 0.25 mcg PO MOWEFR 03/15/18 [History Last Taken 12/16/20 08:00] metoprolol tartrate 25 mg PO BID 12/02/20 [History Last Taken 04/16/21 07:00] miscellaneous medical supply 1 ea MISCELLANEOUS DAILY 360 Days #1 ea 01/01/21 [Rx Last Taken Unknown] amlodipine 5 mg tablet 5 mg PO DAILY #90 tab 02/20/21 [Rx Last Taken 04/16/21 07:00] cephalexin 500 mg capsule 2,000 mg PO ONCE #4 cap 03/28/21 [Rx Last Taken Unknown] ciprofloxacin HCl [Cipro] 500 mg PO BID #14 tab 04/16/21 [Rx Last Taken Unknown] ibuprofen 600 mg PO Q6H PRN 7 Days #14 tab 04/16/21 [Rx Last Taken Unknown] sitagliptin 100 mg-metformin ER 1,000 mg tablet,extended [id number] mp 1 tab PO DAILY #90 tab 05/19/21 [Rx Last Taken Unknown] FreeStyle Lite Strips #100 ea NS 06/02/21 [Rx Last Taken Unknown] blood-glucose meter #1 ea 06/02/21 [Rx Last Taken Unknown] ferrous sulfate 325 mg (65 mg iron) tablet 325 mg PO DAILY 06/02/21 [History Last Taken Unknown] lancets 28 gauge #100 ea 06/02/21 [Rx Last Taken Unknown] losartan 100 mg tablet 100 mg PO DAILY #90 tab 06/02/21 [Rx Last Taken Unknown] empagliflozin 25 mg tablet 25 mg PO DAILY #90 tab 06/03/21 [Rx Last Taken Unknown] allopurinol 100 mg tablet 100 mg PO DAILY #90 tab 07/24/21 [Rx Last Taken Unknown] levothyroxine 150 mcg tablet 150 mcg PO DAILY #90 tab 07/31/21 [Rx Last Taken Unknown] Allergy/AdvReac Type Severity Reaction Status Date / Time adhesive Allergy Rash Verified 08/08/21 05:52 Iepkoym-BAF-XeD Reductase AdvReac Intermediate Diarrhea Verified 08/08/21 05:52 Inhibitor [Ztyrcso-Jbn-Tpt Reductase Inhibitor] empagliflozin AdvReac Diarrhea Verified 08/08/21 05:52 [From Jardiance] lisinopril AdvReac Other Verified 08/08/21 05:52 losartan [Losartan] AdvReac Other Verified 08/08/21 05:52 Family History Father Heart disease CAD (coronary artery disease) Sudden cardiac Myocardial infarction Mother Heart disease Hypertension Brother Flowers's esophagus Esophageal cancer Heart disease Sudden cardiac , Onset Age: 72 CAD (coronary artery disease) CVA (cerebral vascular accident) Depression Myocardial infarction Daughter Flowers's esophagus Other Blindness Surgical History History of appendectomy History of cardiac catheterization (2000) History of cholecystectomy History of esophagogastroduodenoscopy (EGD) History of hemorrhoidectomy (~09/2020) History of left knee replacement History of prostate surgery History of thyroidectomy History of total knee replacement Hx of bilateral inguinal hernia repair Hx of cataract surgery Hx of colonoscopy Hx of rhinoplasty Hx of umbilical hernia repair Social History Smoking Status: Former smoker quit date: 06/28/71 alcohol intake: never substance use type: does not use caffeine: Yes what type of physical activity do you participate in: walking frequency: 1-2 times per week seatbelt use: always ROS Constitutional Constitutional: Reports systems reviewed and no addt'l complaints, except as documented Cardiovascular Cardiovascular: Denies chest pain Respiratory/Chest Respiratory/Chest: Denies shortness of breath at rest Gastrointestinal Gastrointestinal: Denies abdominal pain, change in bowel habits, hematochezia or melena Vital Signs Vital Signs Vital Signs: 08/08/21 05:48 Temperature 96.8 F L Temperature Source Temporal Pulse Rate 58 L Respiratory Rate 18 Respiratory Pattern Normal Blood Pressure 170/68 H Blood Pressure Mean 102 Blood Pressure Source Monitor Blood Pressure Position Sitting Blood Pressure Location Right Arm Pulse Ox 100 Oxygen Delivery Method Room Air Weight Weight: 220 lb 7.396 oz Body Mass Index (BMI) 32.5 Physical Exam Const alert, oriented x3 and no apparent distress General Appearance: cooperative and comfortable Eyes General Eye: normal appearance of both eyes Neck General: normal visual inspection Chest inspection of chest normal Resp Effort and Inspection: able to speak in complete sentences and symmetric chest movement Auscultation: clear to auscultation bilaterally Cardio regular rate and regular rhythm GI soft to palpation, non-tender and non-distended Extremity no calf tenderness Neuro oriented x3 Psych thought process normal Assessment & Plan Assessment/Plan (1) 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 The patient is aware of technique, benefit, risk of alternatives. He has had an opportunity to ask and have questions answered. He presents via an open access program. We will proceed as noted. Mauri Rowell M.D., F.A.C.S.
[2021-08-08] MEDS: Midazolam 5 MG/ML Syringe (06:36)
--- NOTE | 2021-08-08 07:00 | OP.EGD_ITS ---
Patient Name: Koffi Carranza Procedure Date: 08/08/2021 6:27 AM Date of : 1945 Age: 75 Procedure: Upper GI endoscopy Indications: Follow-up of Flowers's esophagus Providers: Mauri Rowell MD Referring MD: Annabelle Foss Medicines: Midazolam 3.5 mg IV, Meperidine 100 mg IV Complications: No immediate complications. Procedure: Pre-Anesthesia Assessment: - Prior to the procedure, a History and Physical was performed, and patient medications and allergies were reviewed. The patient's tolerance of previous anesthesia was also reviewed. The risks and benefits of the procedure and the sedation options and risks were discussed with the patient. All questions were answered, and informed consent was obtained. Prior Anticoagulants: The patient has taken no previous anticoagulant or antiplatelet agents. ASA Grade Assessment: II - A patient with mild systemic disease. After reviewing the risks and benefits, the patient was deemed in satisfactory condition to undergo the procedure. After obtaining informed consent, the endoscope was passed under direct vision. Throughout the procedure, the patient's blood pressure, pulse, and oxygen saturations were monitored continuously. The gastroscope was introduced through the mouth, and advanced to the second part of duodenum. The upper GI endoscopy was accomplished without difficulty. The patient tolerated the procedure well. Moderate Sedation: Moderate (conscious) sedation was personally administered by the endoscopist. The following parameters were monitored: oxygen saturation, heart rate, blood pressure, and response to care. Total physician intraservice time was 17 minutes. Scope In: 6:40:16 AM Scope Out: 6:54:10 AM Total Procedure Duration Time 0 hours 13 minutes 54 seconds Findings: There were esophageal mucosal changes secondary to established long-segment Flowers's disease present in the middle third of the esophagus and in the lower third of the esophagus. The maximum longitudinal extent of these mucosal changes was 13 cm in length. Mucosa was biopsied with a cold forceps for histology. A small hiatal hernia was present. Diffuse mildly erythematous mucosa without bleeding was found in the entire examined stomach. Biopsies were taken with a cold forceps for histology. The examined duodenum was normal. 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 Biopsied. Biopsies performed at 40 cm and 35 cm and 30 cm and 27 cm from the incisors. Long segment Flowers's of at least 13 cm. Multiple samples obtained. - Small hiatal hernia. - Erythematous mucosa in the stomach. Biopsied at the antrum - Normal examined duodenum. Recommendation: - Discharge patient to home. - Resume previous diet. - Continue present medications. - Use Prilosec (omeprazole) 20 mg PO daily. - Telephone my office for pathology results in 1 week. Procedure Code(s): --- Professional --- 97865, Esophagogastroduodenoscopy, flexible, transoral; with biopsy, single or multiple 82042, 59, Moderate sedation services provided by the same physician or other qualified health home care provider performing the diagnostic or therapeutic service that the sedation supports, requiring the presence of an independent trained observer to assist in the monitoring of the patient's level of consciousness and physiological status; initial 15 minutes of intraservice time, patient age 5 years or older Diagnosis Code(s): --- Professional --- K22.70, 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 K44.9, Diaphragmatic hernia without obstruction or gangrene K31.89, Other diseases of stomach and duodenum CPT copyright 2017 [employer]. All rights reserved. The codes documented in this report are preliminary and upon paper mill supervisor review may be revised to meet current compliance requirements. Mauri Rowell MD 08/08/2021 6:59:55 AM This report has been signed electronically. Number of Addenda: 0 Note Initiated On: 08/08/2021 6:27 AM
--- NOTE | 2021-08-08 07:01 | OP.CCLET_ITS ---
08/08/2021 Annabelle Foss [facility] [address] [place] [address] Re : Upper GI endoscopy procedure for Koffi Carranza Dear Dr. Foss This procedure was performed on Sunday, August 08, 2021. 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 Biopsied. Biopsies performed at 40 cm and 35 cm and 30 cm and 27 cm from the incisors. Long segment Flowers's of at least 13 cm. Multiple samples obtained. - Small hiatal hernia. - Erythematous mucosa in the stomach. Biopsied at the antrum - Normal examined duodenum. Recommendations : - Discharge patient to home. - Resume previous diet. - Continue present medications. - Use Prilosec (omeprazole) 20 mg PO daily. - Telephone my office for pathology results in 1 week. My findings are described in the full procedure note, which is enclosed. If I can be of further assistance, please feel free to contact me at Doctor phone number(s): Work: . Sincerely, Mauri Rowell MD 08/08/2021 6:59:55 AM This report has been signed electronically.
== END 2021-08-08 23:59 | disposition home or self-care (01) ==
LOC: EN 05:23 → AC 05:24
PROVIDERS: PCP Internal Medicine; Referring Provider Internal Medicine; Visit Provider Surgery
PROC: (CPT 43239; principal; 2021-08-08 06:25)
DX: K22.70 Barrett's esophagus without dysplasia (principal); E11.42 Type 2 diabetes mellitus with diabetic polyneuropathy; K31.89 Other diseases of stomach and duodenum; K29.70 Gastritis, unspecified, without bleeding; K44.9 Diaphragmatic hernia without obstruction or gangrene; I10 Essential (primary) hypertension; E03.9 Hypothyroidism, unspecified; Z79.84 Long term (current) use of oral hypoglycemic drugs; Z87.891 Personal history of nicotine dependence; Z80.0 Family history of malignant neoplasm of digestive organs; Z79.899 Other long term (current) drug therapy
CPT/HCPCS: 43239; 88305; 88341; 88342; 99152; 99153; J7120

== ENCOUNTER 2021-08-21 12:18 | Outpatient (CLI) | payer MEDICARE, OTHER, SELFPAY ==
--- NOTE | 2021-08-21 12:20 | VDLE_ITS ---
Reason For Study: pain Procedure LEFT This is a venous duplex using B-mode, color GSV is normal. flow and spectral Doppler. CFV is compressible, spontaneous, phasic, Exam performed in department. competent, and demonstrates normal The exam was abbreviated due to the COVID 19 augmentation. protocol. FV is compressible, spontaneous, phasic, The exam was diagnostic. competent and demonstrates normal A preliminary report was called and/or faxed augmentation. to Dr. Foss. POP V is compressible, spontaneous, phasic, competent and demonstrates normal augmentation. T/P Trunk is compressible. PTV is compressible. LT PerV is compressible. VL/Venous Duplex US, Unilateral Interpretation Summary There is no evidence of left lower extremity deep vein thrombosis. Left great s aphenous vein appears patent and compressible segmentally. Abbreviated COVID-19 protocol utilized Ordering Physician: Annabelle Foss Performed By: Edson Garcia RVT
== END 2021-08-21 23:59 | disposition home or self-care (01) ==
LOC: CVS 12:19
PROVIDERS: PCP Internal Medicine; Referring Provider Internal Medicine; Visit Provider Internal Medicine
DX: I82.4Y2 Acute embolism and thrombosis of unspecified deep veins of left proximal lower extremity (principal)
CPT/HCPCS: 93971

== ENCOUNTER → 2021-12-23 | Outpatient (CLI) | payer MEDICARE, OTHER, SELFPAY ==
[2021-12-23 15:41] LABS: Absolute Lymphocyte Count 2.41 X10^3/uL (0.83-4.51); Absolute Neutrophil Count 6.3 X10^3/uL (2.0-7.7); Basophil# 0.09 X10^3/uL; Basophil% 0.9 % (0-1); Hematocrit 48.3 % (40-54); Hemoglobin 16.1 g/dL (13.0-16.5); Lymphocyte # 2.41 X10^3/ul (0.83-4.51); Lymphocyte % 24.1 % (19-41); Mean Corp Hgb Conc 33.3 g/dL (32-36); Mean Corpuscular Hgb 31.2 pg (27.0-32.0); Mean Corpuscular Volume 93.6 fL (80-94); Mean Platelet Vol. 10.6 fl (6.2-12.0); Monocyte# 0.82 X10^3/uL; Monocyte% 8.2 % (0-10); NRBC Flagged by Analyzer 0 % (0-5); Neutrophil # 6.25 X10^3/uL (2.7-7.7); Neutrophil % 62.6 % (47-70); Platelet Count 265 K/mm3 (150-450); RBC Distribution Width CV 14.5 % (11.6-14.6); RBC Distribution Width SD 50.2 fl (35.1-43.9); Red Blood Count 5.16 M/mm3 (4.6-6.2)
[2021-12-23 16:08] LABS: ALB/GLOB Ratio 0.7 RATIO (0.9-2.4); AST(SGOT) 19 U/L (15-37); Alanine Aminotransfer ALT/SGPT 26 U/L (16-61); Albumin, Serum 3.2 g/dL (3.2-5.0); Alkaline Phosphatase 83 U/L (45-117); Anion Gap 7 (5-15); BUN 14 mg/dL (7-18); BUN/Creat Ratio 12.6 RATIO (10-20); Calcium,Total 8.6 mg/dL (8.5-10.1); Chloride 104 mmol/L (98-107); Creatinine, Serum 1.11 mg/dL (0.70-1.30); EST Glomerular Filtration Rate 68 mL/min (>60); Est Glom Filt Rate - Afr Amer 83 mL/min (>60); Globulin 4.5 g/dL (2.2-4.2); Glucose 113 mg/dL (74-106); Protein, Total 7.7 g/dL (6.4-8.2); Sodium Level 137 mmol/L (136-145); Uric Acid 4.5 mg/dL (3.5-7.2)
== END | disposition home or self-care (01) ==
LOC: LAB 14:08
PROVIDERS: PCP Internal Medicine; Visit Provider Podiatrist
DX: M10.9 Gout, unspecified (principal)
CPT/HCPCS: 36415; 80053; 84550; 85025

== ENCOUNTER → 2022-02-12 | Outpatient (CLI) | payer MEDICARE, OTHER, SELFPAY ==
--- NOTE | 2022-02-12 12:28 | CDU_ITS ---
[id number] ^CDU^Carotid Duplex Ultrasound [id number] Reason For Study: stenosis Rt. Velocities/BP Lt. Velocities/BP Prox CCA 60.4/10.8 cm/sec. Prox CCA 80.5/14.6 cm/sec. Mid CCA 54.2/8.0 cm/sec. Mid CCA 72.8/12.4 cm/sec. Dist CCA 60.8/11.3 cm/sec. Dist CCA 67.3/11.3 cm/sec. Prox ICA 78.3/15.7 cm/sec. Prox ICA 70.6/16.8 cm/sec. Mid ICA 68.5/12.4 cm/sec. Mid ICA 64.0/14.6 cm/sec. Dist ICA 59.7/12.4 cm/sec. Dist ICA 61.8/14.6 cm/sec. Rt. ICA/CCA = 1.4. Lt. ICA/CCA = 1.0. Prox ECA 111.3/12.4 cm/sec. Prox ECA 98.1/12.4 cm/sec. Rt. Vert. 38.8/9.1 cm/sec. Lt. Vert. 36.6/8.0 cm/sec. Right Extracranial There is intimal thickening but no significant atherosclerotic plaque noted in the right common carotid artery. There is heterogeneous, irregular atherosclerotic plaque noted in the right internal carotid artery. There is intimal thickening but no significant atherosclerotic plaque noted in the right external carotid artery. Antegrade flow is noted in the right vertebral artery. Left Extracranial There is intimal thickening but no significant atherosclerotic plaque noted in the left common carotid artery. There is heterogeneous, irregular atherosclerotic plaque noted in the left internal carotid artery. The left internal carotid artery is very tortuous. There is intimal thickening but no significant atherosclerotic plaque noted in the left external carotid artery. Antegrade flow is noted in the left vertebral artery. Procedure Carotid Duplex 20908. This is a Carotid Duplex examination using B-mode, color flow and specral Doppler. The exam was diagnostic. Exam performed in department. VL/Carotid Duplex Ultrasound Interpretation Summary Mild (<50%) stenosis right extracranial internal carotid. Mild (<50%) stenosis left extracranial internal carotid. Flow within the vertebral arteries is antegrade bilaterally. Ordering Physician: Azam Sanchez Performed By: Edson Garcia RVT
== END | disposition home or self-care (01) ==
LOC: CVS 12:26
PROVIDERS: PCP Internal Medicine; Referring Provider Surgery Vascular Surgery; Visit Provider Surgery Vascular Surgery
DX: I65.23 Occlusion and stenosis of bilateral carotid arteries (principal)
CPT/HCPCS: 93880

== ENCOUNTER → 2022-03-26 | Outpatient (CLI) | payer MEDICARE, OTHER, SELFPAY ==
[2022-03-26 13:07] LABS: Free T3 2.5 pg/mL (2.18-3.98); PSA,Total - Annual Screen 0.16 ng/mL (0.00-4.00); T4 Free Direct 1.43 ng/dL (0.76-1.46); Thyroid Stim Hormone (TSH) 0.31 uIU/mL (0.358-3.74)
== END | disposition home or self-care (01) ==
LOC: LAB 09:42
PROVIDERS: PCP Internal Medicine; Referring Provider Internal Medicine; Visit Provider Internal Medicine
DX: E89.0 Postprocedural hypothyroidism (principal); Z12.5 Encounter for screening for malignant neoplasm of prostate
CPT/HCPCS: 36415; 84153; 84439; 84443; 84481; G0103

== ENCOUNTER → 2022-06-05 | Outpatient (CLI) | payer MEDICARE, OTHER, SELFPAY ==
[2022-06-09 14:56] LABS: Pancreatic Elastase, Fecal 494 (>200)
[2022-06-10 11:18] LABS: Calprotectin, Stool 106 ug/g (0-120); Fats, Neutral Normal (.); Fats, Total Increased (.)
== END | disposition home or self-care (01) ==
LOC: LABSPEC 11:49
PROVIDERS: PCP Internal Medicine; Visit Provider Internal Medicine Gastroenterology
DX: R19.7 Diarrhea, unspecified (principal)
CPT/HCPCS: 82274; 82653; 82705; 83630; 83993; 87177; 87209; 87329; 87506

== ENCOUNTER → 2022-06-12 | Outpatient (CLI) | payer MEDICARE, OTHER, SELFPAY ==
[2022-06-12 13:27] LABS: LDH 149 U/L (87-241)
[2022-06-12 13:34] LABS: Anion Gap 3 (5-15); BUN 14 mg/dL (7-18); BUN/Creat Ratio 10.4 RATIO (10-20); Calcium,Total 9.3 mg/dL (8.5-10.1); Chloride 104 mmol/L (98-107); Creatinine, Serum 1.34 mg/dL (0.70-1.30); EST Glomerular Filtration Rate 55 mL/min (>60); Est Glom Filt Rate - Afr Amer 66 mL/min (>60); Glucose 150 mg/dL (74-106); Potassium 3.9 mmol/L (3.5-5.1); Sodium Level 136 mmol/L (136-145); T4 Free Direct 1.24 ng/dL (0.76-1.46); Thyroid Stim Hormone (TSH) 0.56 uIU/mL (0.358-3.74)
== END | disposition home or self-care (01) ==
PROVIDERS: Internal Medicine Endocrinology, Diabetes & Metabolism; PCP Internal Medicine; Referring Provider Internal Medicine Gastroenterology; Visit Provider Internal Medicine Gastroenterology
DX: E11.42 Type 2 diabetes mellitus with diabetic polyneuropathy (principal); E89.0 Postprocedural hypothyroidism; K52.9 Noninfective gastroenteritis and colitis, unspecified; I10 Essential (primary) hypertension
CPT/HCPCS: 36415; 80048; 83615; 84439; 84443

== ENCOUNTER 2022-09-07 05:16 | Day surgery (SDC) | payer MEDICARE, OTHER, SELFPAY ==
[2022-09-07 05:53] VITALS: BP 125/76; PULSE 66; RESP 16; TEMP 37; O2SAT 100; BMI 29.7
[2022-09-07] MEDS: Lactated Ringers 1,000 ML 15 ML IV (05:57)
[2022-09-07 06:30] LABS: Bedside Glucose 138 mg/dL (74-106)
--- NOTE | 2022-09-07 06:30 | COLBX_PTH ---
PATIENT: MARY OBREGON LOC: EN U#:[id number] AGE/SX: 76/M ROOM: RE09/07/[address]: Dr. Rangel Jason DO : 1945 BED: DIS: 09/07/2022 SPEC #: [id number] RECD: 09/07/22 10:29 STATUS: GEORGE REQ #: [id number] ARA: 09/07/22 06:[address]: Rangel Jason DEPT: SURGICAL PATHOLOGY RECD BY: Kayla Powell ENTERED: 09/07/22 11:48 SP TYPE: COLON BX OT DR: Dr. Annabelle Foss MD Tissues: A - Descending colon B - Cecum, NOS C - Ascending colon D - Cecum, NOS Procedures: Surgery Specimen Level IV HEADER OPERATION: Colonoscopy (MAC), polypectomy, biopsy PRE-OP DIAGNOSIS: Frequent stools TISSUE SUBMITTED: A ? Polyp descending colon, B ? Polyp cecal cap, C ? Polyp ascending colon, D ? Cecal cap biopsy MICROSCOPIC DIAGNOSIS A. Polyp descending colon, polypectomy: Fragments of tubular adenoma. Fragments of fecal material. B. Polyp cecal cap, polypectomy: Fragments of tubular adenoma. Fragments of fecal material. C. Polyp ascending colon, polypectomy: Fragments of tubular adenoma. D. Cecal cap, biopsy: Fragments of tubular adenoma. SJ:carolann 09/08/2022 MICROSCOPIC DESCRIPTION Slides are reviewed. GROSS DESCRIPTION A - Received in fixative is one container labeled with the patient's name and designated polyp descending colon. The specimen consists of multiple irregular fragments of light perdomo soft tissue mixed with fecal material that in aggregate measure 1.5 x 0.5 x 0.1 cm. The specimen is totally submitted in one cassette. B - Received in fixative is one container labeled with the patient's name and designated polyp cecal cap. The specimen consists of multiple irregular fragments of light perdomo soft tissue mixed with fecal material that in aggregate measure 2.5 x 0.7 x 0.1 cm. C - Received in fixative is one container labeled with the patient's name and designated polyp ascending colon. The specimen consists of multiple irregular fragments of light perdomo soft tissue that in aggregate measure 1.5 x 0.3 x 0.1 cm. The specimen is totally submitted in one cassette. D - Received in fixative is one container labeled with the patient's name and designated biopsy cecal cap. The specimen consists of multiple irregular fragments of light perdomo soft tissue that in aggregate measure 0.6 x 0.6 x 0.1 cm. The specimen is totally submitted in one cassette. / MICKY:carolann 09/07 2022 TC:1 CPT: 46729 x4
--- NOTE | 2022-09-07 06:32 | PCM.HP.BLA ---
History and Physical Date of Admission: 09/07/22 ?76 M who presents to the office today for Follow up. 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 Utilizing omeprazole 20mg QD. Frequent BM is an issue for him. 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 At the beginning of the day he will have abdominal cramping and urgency. This has been an issue for the last 4-5 months. Eats bran muffins which do help somewhat. PMH recurrent DVT with use of Eliquis. 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 PSH hemorrhoid banding 2021. FH esophageal cancer, brother. Colonoscopy 01.24.[address] Rowell for LLQ abdominal pain finding hemorrhoids and diverticulosis with no specimens collected. EGD 08.01.[address] 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 EGD 08.08.[address] 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 No Carafate treatment. Plan 02.03.22: Frequent stools ? possibly r/t medications, omeprazole, iron, Janumet, Biguanide. Symptoms improved since adding soluble fiber. Stop iron and omeprazole, increase fiber. Possible capsule endoscopy. Continues to have the same difficulties as he presented without any changes of improvement/worsening; urgency has caused incontinence and he is not having difficulty leaving the house. He has been using fiber gummies; discussed changing to tablets or powder. Stopped iron and omeprazole without a change of lower GI symptoms; he has had a return of GERD symptoms. ROS Const Constitutional: Positive for abnormal sleep pattern; No body ache, chills, excessive sweating, fatigue, fever(s), frequent falls, headache(s), snoring, weakness, weight change, sleep problems or change in appetite Eyes Eyes: No blurry vision, change in vision, eye pain or Light sensitivity ENT ENT: No abnormal hearing, ear or mastoid pain, tinnitus, nasal congestion, headache(s), neck pain or sore throat Resp Respiratory: No cough, shortness of breath, snoring or wheezing Cardio Cardiology: No chest pain at rest, chest pain with exertion, excessive sweating, shortness of breath, dyspnea on exertion, lightheadedness, orthopnea or palpitations Gastro GI: No abdominal pain, change in bowel habits, constipation, cramping, diarrhea, Vomiting blood/hematemesis, vomiting or other Genitourinary Male: No burning urination, painful urination, urinary incontinence or blood in urine Musc Musculoskeletal: No abnormal gait, joint pain, back pain, limited range of motion, neck pain, numbness or tingling Skin Skin: No dry skin, redness, lesions, itchy eyes, rash or wounds Breast Breast: No change in breast shape, breast lump, breast pain, breast skin changes, breast swelling, nipple discharge or other Neuro Neurology: Positive for confusion; No abnormal gait, abnormal hearing, abnormal speech, dizziness, weakness, frequent falls, headache(s), memory loss, numbness or tingling Psych Psychiatric: Positive for abnormal sleep pattern, Positive for lack of enjoyment, No anxiety, No change in appetite, Positive for confusion, Positive for depression, Positive for difficulty concentrating, Positive for irritability, No memory loss, Positive for mood swings and No Thoughts of harming yourself/Others Endo Endocrine: No cold intolerance, excessive sweating, fatigue, flushing, heat intolerance, increased thirst/drinking, increased hunger or weight change Aller/Imm Allergy/Immunologic: No itchy eyes, seasonal allergy symptoms, hives or wheezing Aaron/Lymp Hematologic/Lymphatic: No easy bleeding, easy bruising, enlarged lymph nodes or other Exam Const General: cooperative, healthy appearing, comfortable and no acute distress Nutritional Appearance: obese Orientation: alert, awake and oriented x3 HENMT Head: normal to inspection Ears: hearing grossly normal bilaterally Eyes General: appearance normal, both eyes and all related structures Alignment and Position: alignment normal Sclera: sclerae normal Neck Neck: normal visual inspection and full ROM Neck mass: No Carotids: normal carotid upstroke Chest Chest palpation & inspection: normal inspection of the chest Resp Effort & Inspection: normal respiratory effort, able to speak in complete sentences, symmetric chest movement, normal respiratory pattern, no audible wheezes and no cough Auscultation: Bilateral: Clear to Auscultation Cardio Rate: regular rate Rhythm: regular rhythm Heart Sounds: S1 normal and S2 normal Bruits: no carotid bruits GI Inspection: normal to inspection and obesity Musc Cervical Spine: normal cervical lordosis Thoracic/Lumbar Spine: thoracic and lumbar spine normal to inspection Skin General: no rashes or lesions noted Lesions: no lesions Rashes: no rashes Trauma: no lacerations or abrasions Wounds: no wounds Neuro General: patient alert, patient awake and patient oriented x3 Cognition: normal cognition Speech: speech normal Extrem General: normal to inspection, full ROM and no pedal edema Psych Appearance: grossly normal Mental Status: mental status grossly normal Mood: congruent mood Affect: normal affect Speech and Movement: speech and movement normal Attitude: cooperative Thought Process: normal Thought Content: normal Judgment: judgment good Quality Reporting Tobacco Screening ([facility]) Smoking Status: Former smoker Assessment and Plan Assessment and Plan (1) Frequent stools: ?Status:?Chronic ?Plan: He did not have any improvement in his frequent stools with stopping PPI therapy diabetic medicines..? Pattern typically involves him having a normal bowel following multiple bowel afterwards and fecal incontinence.? We will check his stools for fecal calprotectin, enteric pathogens,, fecal fat, pancreatic elastase depending on what those test show he may also biochemical testing for IBD and other disease that affects the GI. ? ? ? Orders: Orders [facility]DH Today K52.9 - Noninfective gastroenteritis and colitis, unspecified ? Calprotectin, Stool Today K52.9 - Noninfective gastroenteritis and colitis, unspecified ? ENTERIC PATHOGEN PANEL STOOL Today K52.9 - Noninfective gastroenteritis and colitis, unspecified, K58.9 - Irritable bowel syndrome without diarrhea, R19.7 - Diarrhea, unspecified ? Stool Lactoferrin/WBC Today K52.9 - Noninfective gastroenteritis and colitis, unspecified, K58.9 - Irritable bowel syndrome without diarrhea ? Fecal Fat, Qualitative Today K52.9 - Noninfective gastroenteritis and colitis, unspecified ? OVA+PARA w/Giardia EIA [id number] Today K52.9 - Noninfective gastroenteritis and colitis, unspecified ? Stool Occult Blood iFOB Today K52.9 - Noninfective gastroenteritis and colitis, unspecified ? Pancreatic Elastase, Fecal Today K52.9 - Noninfective gastroenteritis and colitis, unspecified ? I have examined the patient and the H&P has been reviewed. There are no clinical changes since date of exam.
[2022-09-07 07:19] VITALS: BP 125/76; BP 94/66; PULSE 63; RESP 16; TEMP 36.9; O2SAT 93
[2022-09-07 07:24] VITALS: BP 125/76; BP 90/68; PULSE 61; RESP 16; O2SAT 93
--- NOTE | 2022-09-07 07:27 | OP.COLON_ITS ---
Patient Name: Koffi Carranza Procedure Date: 09/07/2022 6:21 AM Date of : 1945 Age: 76 Procedure: Colonoscopy Indications: Clinically significant diarrhea of unexplained origin Providers: Rangel Jason DO Referring MD: Annabelle Foss Medicines: Monitored Anesthesia Care Patient Profile: This is a 76 year old male. Refer to note in patient chart for documentation of history and physical. Last Colonoscopy: 3 years ago. Complications: No immediate complications. Procedure: Pre-Anesthesia Assessment: - Prior to the procedure, a History and Physical was performed, and patient medications and allergies were reviewed. The patient is competent. The risks and benefits of the procedure and the sedation options and risks were discussed with the patient. All questions were answered and informed consent was obtained. Patient identification and proposed procedure were verified by the physician in the pre-procedure area. Mental Status Examination: alert and oriented. Airway Examination: normal oropharyngeal airway and neck mobility. Respiratory Examination: clear to auscultation. CV Examination: normal. Prophylactic Antibiotics: The patient does not require prophylactic antibiotics. Prior Anticoagulants: The patient has taken no previous anticoagulant or antiplatelet agents. After reviewing the risks and benefits, the patient was deemed in satisfactory condition to undergo the procedure. The anesthesia plan was to use monitored anesthesia care (MAC). Immediately prior to administration of medications, the patient was re-assessed for adequacy to receive sedatives. The heart rate, respiratory rate, oxygen saturations, blood pressure, adequacy of pulmonary ventilation, and response to care were monitored throughout the procedure. The physical status of the patient was re-assessed after the procedure. After I obtained informed consent, the scope was passed under direct vision. Throughout the procedure, the patient's blood pressure, pulse, and oxygen saturations were monitored continuously. The colonoscope was introduced through the anus and advanced to the terminal ileum. The colonoscopy was performed without difficulty. The patient tolerated the procedure well. The quality of the bowel preparation was fair. Retroflexion was not performed in the rectum due to rectal prolapse when bearing down. Scope In: 6:41:33 AM Scope Withdrawal Time 0 hours 19 minutes 39 seconds Scope Out: 7:12:45 AM Total Procedure Duration Time 0 hours 31 minutes 12 seconds Findings: Scattered large-mouthed diverticula were found in the entire colon. Five sessile polyps were found in the sigmoid colon, ascending colon and cecum. The polyps were 1 to 2 mm in size. These polyps were removed with a hot snare. Resection and retrieval were complete. Verification of patient identification for the specimen was done. Estimated blood loss was minimal. A 30 mm polyp was found in the cecum. The polyp was sessile. Biopsies were taken with a cold forceps for histology. Verification of patient identification for the specimen was done. Estimated blood loss was minimal. The terminal ileum contained a few 5 mm diverticula. The perianal and digital rectal examinations were normal. Pertinent negatives include normal sphincter tone. Impression: - Preparation of the colon was fair. - Diverticulosis in the entire examined colon. - Five 1 to 2 mm polyps in the sigmoid colon, in the ascending colon and in the cecum, removed with a hot snare. Resected and retrieved. - One 30 mm polyp in the cecum. Biopsied. - Ileal diverticula. Recommendation: - Discharge patient to home. - Resume previous diet. - Continue present medications. - Await pathology results. - Repeat colonoscopy in 3 months for retreatment. Procedure Code(s): --- Professional --- 14000, Colonoscopy, flexible; with removal of tumor(s), polyp(s), or other lesion(s) by snare technique 59747, 59, Colonoscopy, flexible; with biopsy, single or multiple CPT copyright 2017 [employer]. All rights reserved. The codes documented in this report are preliminary and upon roofer vinyl coating review may be revised to meet current compliance requirements. Rangel Jason DO 09/07/2022 7:25:45 AM This report has been signed electronically. Number of Addenda: 0 Note Initiated On: 09/07/2022 6:21 AM
--- NOTE | 2022-09-07 07:27 | OP.CCLET_ITS ---
09/07/2022 Annabelle Foss [facility] [address] [place] [address] Re : Colonoscopy procedure for Koffi Carranza Dear Dr. Foss This procedure was performed on Wednesday, September 07, 2022. My impressions and recommendations are as follows: Impressions : - Preparation of the colon was fair. - Diverticulosis in the entire examined colon. - Five 1 to 2 mm polyps in the sigmoid colon, in the ascending colon and in the cecum, removed with a hot snare. Resected and retrieved. - One 30 mm polyp in the cecum. Biopsied. - Ileal diverticula. Recommendations : - Discharge patient to home. - Resume previous diet. - Continue present medications. - Await pathology results. - Repeat colonoscopy in 3 months for retreatment. My findings are described in the full procedure note, which is enclosed. If I can be of further assistance, please feel free to contact me at . Sincerely, Rangel Jason, 09/07/2022 7:25:45 AM This report has been signed electronically.
[2022-09-07 07:29] VITALS: BP 125/76; BP 99/65; PULSE 63; RESP 16; O2SAT 96
[2022-09-07 07:36] VITALS: BP 106/67; BP 125/76; PULSE 70; RESP 16; TEMP 36.8; O2SAT 97
[2022-09-07 07:52] VITALS: BP 125/76
== END 2022-09-07 08:02 | disposition home or self-care (01) ==
LOC: EN 05:18 → AC 05:20
PROVIDERS: PCP Internal Medicine; Referring Provider Internal Medicine; Visit Provider Internal Medicine Gastroenterology
PROC: 0DJD8ZZ Inspection of Lower Intestinal Tract, Via Natural or Artificial Opening Endoscopic (ICD-10-PCS; CPT 45378; principal; 2022-09-07 06:25)
DX: D12.4 Benign neoplasm of descending colon (principal); K57.30 Diverticulosis of large intestine without perforation or abscess without bleeding; Z87.891 Personal history of nicotine dependence; K52.9 Noninfective gastroenteritis and colitis, unspecified; D12.0 Benign neoplasm of cecum; D12.2 Benign neoplasm of ascending colon; I10 Essential (primary) hypertension; Z79.899 Other long term (current) drug therapy; Z87.19 Personal history of other diseases of the digestive system
CPT/HCPCS: 45385; 45380; 82962; 88305; J7120; J2405

== ENCOUNTER 2022-11-30 05:15 | Inpatient (IN) | payer MEDICARE, OTHER, SELFPAY ==
[2022-11-16 09:08] LABS: Absolute Lymphocyte Count 1.84 X10^3/uL (0.83-4.51); Absolute Neutrophil Count 9.3 X10^3/uL (2.0-7.7); Basophil# 0.11 X10^3/uL; Basophil% 0.9 % (0-1); Eosinophil# 0.28 X10^3/uL; Eosinophils% 2.2 % (0-5); Hematocrit 53.6 % (40-54); Hemoglobin 17.4 g/dL (13.0-16.5); Lymphocyte # 1.84 X10^3/ul (0.83-4.51); Lymphocyte % 14.8 % (19-41); Mean Corp Hgb Conc 32.5 g/dL (32-36); Mean Corpuscular Volume 95.4 fL (80-94); Mean Platelet Vol. 10.7 fl (6.2-12.0); Monocyte# 0.77 X10^3/uL; Monocyte% 6.2 % (0-10); NRBC Flagged by Analyzer 0 % (0-5); Neutrophil # 9.31 X10^3/uL (2.7-7.7); Neutrophil % 74.8 % (47-70); Platelet Count 262 K/mm3 (150-450); RBC Distribution Width CV 14.6 % (11.6-14.6); RBC Distribution Width SD 51.2 fl (35.1-43.9); Red Blood Count 5.62 M/mm3 (4.6-6.2); White Blood Count 12.5 K/mm3 (4.4-11.0)
[2022-11-16 09:29] LABS: Hemoglobin A1c 6.8 % (3.8-5.6)
[2022-11-16 09:41] LABS: Vitamin D,25 Hydroxy 57.9 ng/mL
[2022-11-16 09:46] LABS: ALB/GLOB Ratio 0.8 RATIO (0.9-2.4); AST(SGOT) 20 U/L (15-37); Alanine Aminotransfer ALT/SGPT 33 U/L (16-61); Albumin, Serum 3.4 g/dL (3.2-5.0); Alkaline Phosphatase 90 U/L (45-117); Anion Gap 7 (5-15); BUN 21 mg/dL (7-18); BUN/Creat Ratio 17.8 RATIO (10-20); Calcium,Total 9.4 mg/dL (8.5-10.1); Chloride 101 mmol/L (98-107); Cholesterol 152 mg/dL (200); Creatinine, Serum 1.18 mg/dL (0.70-1.30); EST Glomerular Filtration Rate 64 mL/min (>60); Est Glom Filt Rate - Afr Amer 77 mL/min (>60); Globulin 4.5 g/dL (2.2-4.2); Glucose 163 mg/dL (74-106); High Density Lipoprotein 45 mg/dL; Potassium 4.3 mmol/L (3.5-5.1); Protein, Total 7.9 g/dL (6.4-8.2); Sodium Level 136 mmol/L (136-145); Triglycerides 67 mg/dL; Very Low Density Lipoprotein 13 mg/dL (5-40)
[2022-11-16 10:00] LABS: Magnesium 2.4 mg/dL (1.6-2.6); Thyroid Stim Hormone (TSH) 0.57 uIU/mL (0.358-3.74)
[2022-11-30] VITALS (17 sets, daily range): BP systolic 104–142; BP diastolic 53–77; PULSE 51–80; RESP 16–18; TEMP 36.2–37; O2SAT 91–98; BMI 29.7; BMI 29.6
--- NOTE | 2022-11-30 | COL._PTH ---
PATIENT: MARY OBREGON LOC: MS3 U#:[id number] AGE/SX: 77/M ROOM: MO312 RE11/30/[address]: Dr. Mauri Rowell MD : 1945 BED: 1 DIS: 12/02/2022 SPEC #: [id number] RECD: 11/30/22 09:39 STATUS: GEORGE [facility] #: [id number] ARA: 11/30/22 00:[address]: Mauri Rowell DEPT: SURGICAL PATHOLOGY RECD BY: Delaney Juarez ENTERED: 11/30/22 10:15 SP TYPE: COLON OTHR DR: MD Dr. Annabelle Joseph MD Tissues: A - Cecum, NOS B - Colon, NOS Procedures: Surgery Specimen Level III Surgery Specimen Level V HEADER OPERATION: ERAS, lap colectomy with transverse subtotal abdominal plane PRE-OP DIAGNOSIS: Tubular adenoma of colon TISSUE SUBMITTED: A ? Cecum sent fresh, B ? Small bowel staple line MICROSCOPIC DIAGNOSIS A. Cecum, hemicolectomy: Tubular adenoma, multifocal, sessile involving the ileocecal valve. One smaller tubular adenoma (0.7 cm in greatest dimension). Twelve benign pericolonic lymph nodes. See comment. B. Small bowel staple line: No pathologic diagnosis. See comment. SJ:rg 12/02/2022 COMMENT A. Pericolonic adipose tissue also shows focal area of hemorrhage. B. The staple line predominantly almost entirely consists of jayy. Submitted tissue consists of unremarkable adipose tissue. Please make reference to previous specimen ([id number]), polyp descending colon, polypectomy with diagnosis of ?fragments of tubular adenoma,? and polyp cecal cap, polypectomy with diagnosis of ?fragments of tubular adenoma,? and polyp ascending colon, polypectomy with diagnosis of ?fragments of tubular adenoma,? and cecal cap, biopsy with diagnosis of ?fragments of tubular adenoma.? MICROSCOPIC DESCRIPTION Slides are reviewed. GROSS DESCRIPTION A - Received without fixative is one container labeled with the patient's name and designated cecum.? The specimen consists of a previously opened right hemicolectomy specimen consisting of cecum with ascending colon and segment of small bowel. The appendix is not identified. The cecum with ascending colon measures 10.0 cm in length and segment of small intestine measures 6.0 cm in length. Attached pericolonic adipose tissue and mesenteric tissue is also noted. Small intestinal resection margin is stapled. Distal colonic resection margin is open. The lumen contains a small amount of fecal material. A small polyp is noted 1.0 cm away from the ileocecal valve measuring 0.7 cm in greatest dimension. The ileocecal valve is reddish in color and no obvious polyp is noted. Focal ulcerated areas are also noted in the cecum. This information is conveyed to the surgeon intraoperatively. Sections of pericolonic adipose tissue reveal multiple lymph nodes and focal area of congestion and hemorrhage. Largest lymph node measures 0.5 cm in greatest dimension. [employer] sections are submitted as follows: 1 - proximal and distal resection margins, 2 ? polyp in ascending colon, 3 ? ulcerated and hemorrhagic areas, cecum, 47??entire ileocecal valve, 8??videotape sales representative sections of small and large bowel, 9 & 10 - multiple lymph nodes, 11 - one bisected lymph node, 12 - pericolonic adipose tissue with area of hemorrhage. B - Received in fixative is one container labeled with the patient's name and designated small bowel staple line. The specimen consists of a piece of perdomo soft tissue with multiple jayy measuring 4.0 x 0.5 x 0.2 cm. A small amount of soft tissue is present without jayy, which is submitted in one cassette. / SJ:carolann 12/01/2022 TC:1 CPT: 86320, 04401, 52742
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
--- NOTE | 2022-11-30 05:43 | EX.PCM.DISCH ---
Discharge Instructions Procedure General Surgery Diet Discharge Diet: Light diet - advance as tolerated (if you have questions about your diet instructions, please talk to you doctor.) Activity Discharge Activity: May Not Drive (for 3-5 days or while taking narcotic pain medicine.) and May Shower May shower in (days): 1 Lifting Restrictions: 10 pounds Dressing / Incision Call your doctor if your incision/area has: Continuous Slow Oozing, Sudden Increased Bleeding, Increased Pain/ Swelling, Increased Redness and Foul Smelling Discharge Call your doctor if you observe: Fever of 101 or Higher Suture Line Care: Avoid Pulling/Pushing and Avoid Pinching/Bending Additional Dressing/Incision Instructions:: Change or remove dressing in 2 days. Leave steri-strips in place for 1 week. Follow Up Care Please Follow Up With: Mauri Rowell MD When: Call [phone] to make an appointment to be seen in about 10 days. Test Results: Test results from this visit will be discussed in further detail at your follow-up appointment, if applicable. Discharge Plan Admission Admit Date/Time: 11/30/22 05:15 Primary Reason for Your Visit: Noncolonoscopically resectable cecal polyp Attending Provider: Mauri Rowell Primary Care Provider: Annabelle Foss Consulting Providers: Ceasar Caro Discharge Orders/Prescriptions Prescriptions: Continued amlodipine 10 mg tablet 10 mg PO DAILY Qty: 90 3RF ibuprofen 600 mg tablet 600 mg PO Q6H PRN (Reason: pain) 7 Days Qty: 14 0RF multivitamin Tablet 1 tab PO DAILY PreserVision AREDS-2 250-90-40-1 mg Capsule 1 tab PO BID sertraline 100 mg tablet 100 mg PO DAILY carvedilol [Coreg] 3.125 mg tablet 3.125 mg PO BID Rx Instructions: must administer with a meal/food levothyroxine 150 mcg tablet 150 mcg PO DAILY budesonide 3 mg capsule,delayed,extend.release 6 mg PO DAILY losartan 100 mg tablet 100 mg PO DAILY Jardiance 25 mg tablet 25 mg PO DAILY allopurinol 100 mg tablet 100 mg PO DAILY Qty: 90 1RF Janumet XR 100-1,000 mg tablet, ER multiphase 24 hr 1 tab PO DAILY Qty: 90 3RF calcitriol 0.25 mcg capsule 0.25 mcg PO MOWEFR Qty: 60 3RF Discontinued metronidazole 500 mg tablet 500 mg PO .COMPLEX Rx Instructions: Take 2 (two) tablets at 1300, 1500, 2300 the day prior to the procedure cephalexin 500 mg tablet 500 mg PO .COMPLEX Rx Instructions: Take Two (2) tablets at 1300, 1500, and 2300 pm the day prior to procedure No Action (DME) FreeStyle Lite Strips Strip See Rx Instructions .ROUTE .MEDSUPPLY Qty: 100 3RF Rx Instructions: daily (DME) blood-glucose meter [FreeStyle [place]] Kit See Rx Instructions .ROUTE .MEDSUPPLY Qty: 1 0RF Rx Instructions: As directed (DME) lancets [FreeStyle Lancets] 28 gauge misc See Rx Instructions .ROUTE .MEDSUPPLY Qty: 100 3RF Rx Instructions: daily Referrals / Follow Up: Annabelle Foss MD [Primary Care Provider] - Disposition Disposition (needs filled in before D/C Order can be placed): Home, Self Care
[2022-11-30] MEDS: Magnesium 1 GM over 15 mins IV (06:24)
[2022-11-30] MEDS: Lactated Ringers 1,000 ML 40 ML IV ×3 (06:24→10:31)
[2022-11-30] MEDS: Acetaminophen 500 MG Tablet 1000 MG PO ×2 (06:32→17:50)
[2022-11-30] MEDS: Gabapentin 600 MG Tablet PO (06:32)
[2022-11-30] MEDS: Insulin Lispro 100 UNIT/ML INSULN.PEN SC ×2 (06:36→12:04)
--- NOTE | 2022-11-30 06:54 | SUR.PREOP ---
Patient received Magnesium iv and his face started getting red, and had some hives on his arms. Dr. Caro came in and checked the patient and agreed he thought it was the magnesium. No new orders. Dr. Caro said he will continue to monitor.
--- NOTE | 2022-11-30 07:00 | SUR.PREOP ---
DR. Rowell also made aware of the possible reaction to magnesium. He assessed patient. No new orders.
[2022-11-30] MEDS: Cefotetan 2 GM in 0.9% NS 100 ML IV (07:35)
[2022-11-30] MEDS: Bupivacaine 0.25% 30 ML Vial ×2 (07:45)
[2022-11-30] MEDS: 0.9% Normal Saline (Pres. free 10 ML Vial (07:45)
[2022-11-30] MEDS: BUPIVACAINE LIPOSOME/PF 20 ML VIAL OPERA.SITE (07:45)
[2022-11-30 08:17] LABS: Bedside Glucose 215 mg/dL (74-106)
--- NOTE | 2022-11-30 10:41 | OP.PCM_ITS ---
Report of Operation Date of Procedure: 11/30/22 Pre-Operative Diagnosis: Noncolonoscopically resectable cecal polyp Post-Operative Diagnosis: Same plus right upper quadrant and right lower quadrant intra-abdominal adhesions and bilobed epigastric ventral incisional hernia related to her remote open cholecystectomy transverse incision Surgery/Procedure Performed:: Laparoscopic lysis of adhesions right upper quadrant and right lower quadrant with release of omentum from the epigastric incisional hernia. Laparoscopic right hemicolectomy. Laparoscopic bilateral transabdominal plane block Description of Surgical Findings:: Timeout and informed consent was obtained. 77-year-old gentleman was taken to the operating room placed upon the table underwent general endotracheal intubation anesthesia. Cefotetan 2 g were given continuously. A Davis catheter was placed to gravity. The abdomen was sterilely prepped and draped. Superior to the umbilicus by approximately 5 cm a vertical incision was created after Exparel mixed with Marcaine mixed with saline was used as local anesthetic. Sharp dissection carried down to the fascia holding sutures of 0 Vicryl placed incision was created direct access was gained the abdomen and the sound catheter was inserted and the abdomen was insufflated with CO2 to a pressure of 10 mmHg pressure under direct visitation 5 mm port was placed in the right lower quadrant and then upon better visualization 5 mm port was placed in the left upper quadrant and then once adhesions were taken down final 5 mm trocar was placed in the epigastric area inspection revealed that there were adhesions of small bowel in the right lower quadrant from the remote appendectomy site and was also adherent to the peritoneum overlying a previous laparoscopic right inguinal hernia. There were adhesions of omentum to the transverse colon in the upper abdomen and there were involvement incarceration of omentum within a bilobed epigastric ventral incisional hernia related to a transverse incision from the remote cholecystectomy. I Taking the omentum adhesions and releasing them from the ventral incisional hernia in the epigastric area and this was done with a harmonic scalpel. Having done that I used laparoscopic guidance to do a bilateral transabdominal plane block with the Exparel/Marcaine/saline mixture. Then sena attention to the right lower quadrant there were adhesions of terminal small bowel using both sharp dissection with Metzenbaum scissors as well as laparoscopic extension and gradually freed the terminal ileum from all of the adhesions in the right lower quadrant and elevated the cecum incised the white line line of Toldt up to the hepatic area the omentum was adherent to the transverse colon to the best my ability I freed the omentum to get better visualization of the proximal tra nsverse colon. Became apparent that it was relatively adherent in the proximal transverse colon area so I then mobilized all of the ascending colon. The procedure was being performed for a noncolonoscopically resectable cecal polyp is identified and recommended by Dr. Rangel Jason. I did not feel that an extensive repair or aggressive resection was required. Having mobilized the terminal ileum and the entire ascending: Hemostasis throughout achieved with harmonic scalpel I now allowed the abdomen to deflate of the CO2 lengthen the vertical midline incision and placed a medium wound protector carefully and tediously remove the ascending colon. Transected the mesentery under direct visualization with the harmonic scalpel and the terminal ileum was freed. I transected the terminal ileum with a RADAMES stapler. Then transected the right colic artery using combination amount of scalpel and then Annabella clamps and 0 Vicryl suture ligature. Became apparent that the proximal transverse colon was rather adherent to the right upper quadrant. Although there was no Faith ink marking the operative report suggested a 30 mm polyp at the orifice of the ileocecal valve so I transferred dissected the ascending colon. I elected to do an open handsewn end-to-end anastomosis. Plastic shod clamps were applied. The staple line of the terminal ileum was dissected off. Posterior row of interrup autumn 4-0 silk was used to approximate in an end and fashion the terminal ileum with the ascending colon. In the interim area was done with a running 3-0 chromic with a canal technique used anteriorly. I reinforced the anterior wall with a running 4-0 silk Lembert suture. Toone that I had a very viable anastomosis with absolutely no tension. Closed mesenteric strap with a running 2-0 chromic. Bowel was placed back in the abdomen. The fascia was closed with a #1 running Prolene. There was evidence of previous Ventralex mesh that was visualized at the umbilicus and the fascia overlying the very superior part of that is closed with the Prolene and a single suture Prolene was used to secure the very apex of the mesh as the midline wound was then closed. The abdomen was reinsufflated with CO2 and the abdomen was inspected small amount of blood noted in the right upper quadrant was aspirated free all tissues appeared to be viable there is greater omentum was placed overlying the bowel structures. The abdomen was again allowed to deflate of the CO2. It is of note while the pneumoperitoneum was here I placed local around the incisional area itself. The wounds were now closed with interrupted simple or running subcuticular 4-0 Monocryl. Steri-Strips Telfa OpSite dressings applied. Sponge and instrument and needle counts were reported to be correct. Specimen right colon and portion of the staple line from the terminal ileum. Drains none. Blood loss 150 cc. Request was made for pathology to inspect the inspection with what they did grossly. There was a small polyp in the cecum but there was not found to be a 30 mm polyp at the ileocecal valve. I had looked within the orifice of the ascending colon after transecting it and there was no polyp in that location either. We will await final pathology. The patient was taken to the recovery room in satisfactory addition without apparent complication Mauri Rowell M.D., F.A.C.S. Surgeon: Mauri Rowell Type of Anesthesia: General and Local
[2022-11-30] MEDS: Sugammadex Sodium 200 MG/2 ML VIAL IV (10:42)
[2022-11-30 12:23] LABS: Bedside Glucose 194 mg/dL (74-106)
--- NOTE | 2022-11-30 13:43 | PCM.PN.SRG ---
Subjective Subjective 77-year-old gentleman. He is doing well the afternoon of his postoperative day 0. He states he has no discomfort whatsoever. He denies nausea. Objective Data Objective Data Vital Signs: Vital Signs Temp Pulse Resp BP Pulse Ox O2 Del Method O2 Flow Rate 98.1 F 63 16 114/60 93 Room Air 4 11/30/22 13:30 11/30/22 13:30 11/30/22 13:30 11/30/22 13:30 11/30/22 13:30 11/30/22 13:30 11/30/22 13:15 Oxygen Flow Rate (L/min) 4 Oxygen Delivery Method Room Air Weight: 207 lb 3.752 oz Body Mass Index (BMI) 29.7 Intake & Output: Intake and Output for Last 24 Hours 11/28/22 11/29/22 11/30/22 23:59 23:59 23:59 Intake Total 2202 / 2202 Output Total 500 / 500 Balance 1702 / 1702 Lab / Micro Data Result Diagrams: 11/16/22 08:19 11/16/22 08:19 Labs: Laboratory Results - last 24 hr 11/30/22 06:29: POC Glucose 215 H 11/30/22 12:02: POC Glucose 194 H Physical Exam GI GI Narrative: Abdomen is soft, no tenderness. Dressings are dry. Assessment & Plan Assessment/Plan (1) Tubular adenoma of colon: PLAN: I have vigorously stressed to the patient the importance of early mobilization today. He is aware that this is critical to his smooth recovery. He has had an opportunity to ask and have questions answered. I plan on additional follow-up tomorrow morning. Mauri Rowell M.D., F.A.C.S.
[2022-11-30] MEDS: Carvedilol 3.125 MG TABLET PO (20:43)
[2022-11-30] MEDS: Docusate Sodium 100 MG Capsule PO (20:44)
[2022-11-30] MEDS: Ensure Plus High Protein 120 ML LIQUID PO (20:50)
[2022-12-01] MEDS: Acetaminophen 500 MG Tablet 1000 MG PO ×4 (00:08→17:49)
[2022-12-01 02:04] VITALS: BP 158/88; PULSE 73; RESP 16; TEMP 36.6; O2SAT 96
[2022-12-01] MEDS: Levothyroxine 150 MCG Tablet PO (05:20)
[2022-12-01 06:04] VITALS: BP 145/79; PULSE 52; RESP 16; TEMP 36.7; O2SAT 96
--- NOTE | 2022-12-01 06:33 | PCM.PN.SRG ---
Subjective Subjective Initial making remarkable progress. He was able to sit out of bed for 3 hours. He was able to ambulate in the room as well as in the halls. He states that he has had a slight amount of flatus. His abdominal discomfort is mild and he is able to only take acetaminophen. He has no particular concerns at this time. Objective Data Objective Data Vital Signs: Vital Signs Temp Pulse Resp BP Pulse Ox O2 Del Method O2 Flow Rate 98.1 F 52 L 16 145/79 H 96 CPAP 2 12/01/22 06:04 12/01/22 06:04 12/01/22 06:04 12/01/22 06:04 12/01/22 06:04 12/01/22 06:04 11/30/22 17:44 Oxygen Flow Rate (L/min) 2 Oxygen Delivery Method CPAP Weight: 207 lb 3.752 oz Body Mass Index (BMI) 29.6 Intake & Output: Intake and Output for Last 24 Hours 11/29/22 11/30/22 12/01/22 23:59 23:59 23:59 Intake Total 2252 / 2252 541.33 / 541.33 Output Total 500 / 1650 1400 / 1400 Balance 1752 / 602 -858.67 / -858.67 Lab / Micro Data Result Diagrams: 11/16/22 08:19 11/16/22 08:19 Labs: Laboratory Results - last 24 hr 11/30/22 06:29: POC Glucose 215 H 11/30/22 12:02: POC Glucose 194 H Physical Exam Const oriented x3 Cardio regular rate and regular rhythm GI GI Narrative: Soft, nontender, bowel sounds present and active, dressings clean and dry Assessment & Plan Assessment/Plan (1) Tubular adenoma of colon: PLAN: I am very pleased with the patient current progress. We will remove the Davis and hold his IV fluids. I will allow transitional diet but I have cautioned the patient about a very slow advancement. I anticipate reevaluating him later today. Discharge planning in the works. Mauri Rowell M.D., F.A.C.S.
--- NOTE | 2022-12-01 06:37 | PCM.DC.SUM ---
Providers Date of Admission: 11/30/22 Primary Care Physician: Dr. Annabelle Foss MD Reason For Visit: rt lap colectomy Diagnosis Discharge Diagnosis (1) Tubular adenoma of colon: Status: Acute Code(s): D12.6 - Benign neoplasm of colon, unspecified Plan: I am very pleased with the patient current progress. We will remove the Davis and hold his IV fluids. I will allow transitional diet but I have cautioned the patient about a very slow advancement. I anticipate reevaluating him later today. Discharge planning in the works. Mauri Rowell M.D., F.A.C.S. Medications at Discharge Home Medications ibuprofen 600 mg tablet 600 mg PO Q6H PRN pain 7 days #14 tabs 04/16/21 FreeStyle Lite Strips (blood sugar diagnostic) #100 ea 06/02/21 blood-glucose meter (FreeStyle [place] kit) #1 ea 06/02/21 lancets 28 gauge (FreeStyle Lancets) #100 ea 06/02/21 amlodipine 10 mg tablet 10 mg PO DAILY blood pressure #90 tabs 04/24/22 allopurinol 100 mg tablet 100 mg PO DAILY gout #90 tabs 07/20/22 multivitamin 1 tab PO DAILY SUPPLEMENT 08/06/22 vit C 250 mg-vit E 90 mg-zinc 40 mg-copper 1 [id number]-bcehxc capsule (PreserVision AREDS-2) 1 tab PO BID SUPPLEMENT 08/06/22 sitagliptin phos 100 mg-metformin ER 1,000 mg tablet,extend rel 24h mp (Janumet XR) 1 tab PO DAILY blood glucose #90 tabs 11/12/22 budesonide 3 mg capsule,delayed,extended release 6 mg PO DAILY Check with primary doctor 11/16/22 carvedilol 3.125 mg tablet (Coreg) 3.125 mg PO BID BP 11/16/22 empagliflozin 25 mg tablet (Jardiance) 25 mg PO DAILY DIABETES 11/16/22 levothyroxine 150 mcg tablet 150 mcg PO DAILY THYROID 11/16/22 losartan 100 mg tablet 100 mg PO DAILY BP 11/16/22 sertraline 100 mg tablet 100 mg PO DAILY ANTIDEPPRESSANT 11/16/22 calcitriol 0.25 mcg capsule 0.25 mcg PO MOWEFR supplement #60 caps 11/23/22 Hospital Course Operations - (Laparoscopic right colectomy with bilateral transabdominal plane block) Summary of Care Provided Hospital Course: 77-year-old gentleman. He was felt to have a 9 colonoscopically resectable ileocecal valve polyp per Dr. Multani Friend. The patient was taken the operating room and underwent a laparoscopic right colectomy with lysis of adhesions of terminal ileum and partial mobilization of the hepatic flexure. A end-to-end sutured anastomosis was performed. A bilateral transabdominal plane block was performed. His progress was strong on postoperative day 1 he was already passing flatus had active bowel sounds minimal discomfort only requiring acetaminophen and he was ambulating. He did require a single narcotic pain pill. He is not only passing flatus but he has had 2 bowel movements. Tolerating a diet without nausea. Ready for discharge. Weight / BMI Weight Weight: 207 lb 3.752 oz Body Mass Index (BMI) 29.6 ABG / Lab / Microbiology Data Result Diagrams: 12/01/22 06:40 12/01/22 06:40 Laboratory: Laboratory Results - last 24 hr 11/30/22 06:29: POC Glucose 215 H 11/30/22 12:02: POC Glucose 194 H D/C Instructions Discharge Diet: Light diet - advance as tolerated (if you have questions about your diet instructions, please talk to you doctor.) May shower in (days): 1 Call your doctor if your incision/area has: Continuous Slow Oozing, Sudden Increased Bleeding, Increased Pain/ Swelling, Increased Redness and Foul Smelling Discharge Call your doctor if you observe: Fever of 101 or Higher Suture Line Care: Avoid Pulling/Pushing and Avoid Pinching/Bending Additional Dressing/Incision Instructions: Change or remove dressing in 4 days. Leave steri-strips in place for 1 week. Please Follow Up With: Mauri Rowell MD When: Call [phone] to make an appointment to be seen in about 10 days. Meaningful Use Info Meaningful Use Diagnoses (Choose all that apply): None applicable Discharge Plan Admission Admit Date/Time: 11/30/22 05:15 Primary Reason for Your Visit: Noncolonoscopically resectable cecal polyp Attending Provider: Mauri Rowell Primary Care Provider: Annabelle Foss Consulting Providers: Ceasar Caro Discharge Orders/Prescriptions Prescriptions: Continued amlodipine 10 mg tablet 10 mg PO DAILY Qty: 90 3RF ibuprofen 600 mg tablet 600 mg PO Q6H PRN (Reason: pain) 7 Days Qty: 14 0RF multivitamin Tablet 1 tab PO DAILY PreserVision AREDS-2 250-90-40-1 mg Capsule 1 tab PO BID sertraline 100 mg tablet 100 mg PO DAILY carvedilol [Coreg] 3.125 mg tablet 3.125 mg PO BID Rx Instructions: must administer with a meal/food levothyroxine 150 mcg tablet 150 mcg PO DAILY budesonide 3 mg capsule,delayed,extend.release 6 mg PO DAILY losartan 100 mg tablet 100 mg PO DAILY Jardiance 25 mg tablet 25 mg PO DAILY allopurinol 100 mg tablet 100 mg PO DAILY Qty: 90 1RF Janumet XR 100-1,000 mg tablet, ER multiphase 24 hr 1 tab PO DAILY Qty: 90 3RF calcitriol 0.25 mcg capsule 0.25 mcg PO MOWEFR Qty: 60 3RF Discontinued metronidazole 500 mg tablet 500 mg PO .COMPLEX Rx Instructions: Take 2 (two) tablets at 1300, 1500, 2300 the day prior to the procedure cephalexin 500 mg tablet 500 mg PO .COMPLEX Rx Instructions: Take Two (2) tablets at 1300, 1500, and 2300 pm the day prior to procedure No Action (DME) FreeStyle Lite Strips Strip See Rx Instructions .ROUTE .MEDSUPPLY Qty: 100 3RF Rx Instructions: daily (DME) blood-glucose meter [FreeStyle [place]] Kit See Rx Instructions .ROUTE .MEDSUPPLY Qty: 1 0RF Rx Instructions: As directed (DME) lancets [FreeStyle Lancets] 28 gauge misc See Rx Instructions .ROUTE .MEDSUPPLY Qty: 100 3RF Rx Instructions: daily Referrals / Follow Up: Annabelle Foss MD [Primary Care Provider] - Disposition Disposition (needs filled in before D/C Order can be placed): Home, Self Care
[2022-12-01 07:18] LABS: Hematocrit 49.1 % (40-54); Mean Corp Hgb Conc 32.6 g/dL (32-36); Mean Corpuscular Volume 95.2 fL (80-94); Mean Platelet Vol. 10.8 fl (6.2-12.0); Platelet Count 260 K/mm3 (150-450); RBC Distribution Width CV 14.6 % (11.6-14.6); RBC Distribution Width SD 51.5 fl (35.1-43.9); Red Blood Count 5.16 M/mm3 (4.6-6.2); White Blood Count 14.7 K/mm3 (4.4-11.0)
[2022-12-01 07:43] LABS: Anion Gap 5 (5-15); BUN 16 mg/dL (7-18); BUN/Creat Ratio 12.3 RATIO (10-20); Chloride 103 mmol/L (98-107); EST Glomerular Filtration Rate 57 mL/min (>60); Est Glom Filt Rate - Afr Amer 69 mL/min (>60); Estimated Creatinine Clearance 48.35 ml/min; Glucose 150 mg/dL (74-106); Potassium 3.9 mmol/L (3.5-5.1); Sodium Level 134 mmol/L (136-145)
[2022-12-01 07:50] VITALS: O2SAT 95
[2022-12-01 07:58] VITALS: BP 113/73; PULSE 79; RESP 16; TEMP 36.7; O2SAT 94
[2022-12-01] MEDS: Budesonide 3 MG CAPSULE.EC 6 MG PO (09:38)
[2022-12-01] MEDS: Carvedilol 3.125 MG TABLET PO ×2 (09:38→21:20)
[2022-12-01] MEDS: Docusate Sodium 100 MG Capsule PO ×2 (09:38→21:20)
[2022-12-01] MEDS: metFORMIN HCl 500 MG Tablet 1000 MG PO (09:39)
[2022-12-01] MEDS: Losartan Potassium 100 MG Tablet PO (09:39)
[2022-12-01] MEDS: Empagliflozin 25 MG Tablet PO (09:40)
[2022-12-01] MEDS: Sertraline 100 MG Tablet PO (09:41)
[2022-12-01] MEDS: Enoxaparin 40 MG/0.4 ML Syringe SC (09:41)
[2022-12-01] MEDS: amLODIPine 10 MG Tablet PO (09:41)
[2022-12-01] MEDS: LINAGLIPTIN 5 MG TABLET PO (09:41)
[2022-12-01] MEDS: Allopurinol 100 MG Tablet PO (09:42)
[2022-12-01] MEDS: Ensure Plus High Protein 120 ML LIQUID PO ×2 (09:43→21:19)
--- NOTE | 2022-12-01 09:43 | CASEMGMT ---
GRISEL WELCH Assessment: Face to Face with pt for initial transition planning/care coordination assessment. RN REBEKAH introduced self and role at [facility], pt voices understanding and consents to assessment. Pt is A/O x4 and answers all questions appropriately at this time. Pt sitting up in chair in no distress, nurse at bedside. Care providers, pharmacy, and demographics verified/updated. Admitting Dx: R lap colectomy PCP:[facility] Specialists:Sorin, OR; Friend, GI; Salas, onc; King endo; Say, cardio; Hermann, uro; Diogenes, pulm Preferred Pharmacy: [facility] Retail Insurance: [employer] Prescription Benefit: yes LNOK: uJlieta Carranza, Living Arrangements: Pt lives with and granddtr in a single story home with 2 steps to enter with a rail. Pt reports he is I in ADL's and denies concerns at home. Transportation: Pt does not drive. Pt transports him to medical appts. DME/HHC/SNF: Pt has a BP cuff at home, CPAP, walker, BGM with sufficient supplies and checks his blood sugars 3x/wk. Pt does not currently use AD. Pt denies hx of HHC or SNF stays. Pt states no concerns with going home at time of dc. Pt has been ambulating the halls this morning and last evening. Pt states no further concerns/needs. CM to follow. Advised pt to ask CM if any further question/concerns/needs arise, voices understanding. Pt Goal: Home Plan: Home
[2022-12-01 13:53] VITALS: BP 122/65; PULSE 57; RESP 16; TEMP 37.2; O2SAT 96
--- NOTE | 2022-12-01 16:26 | PCM.PN.SRG ---
Subjective Subjective Patient notes that he is ambulated. No nausea. Tolerating a slight diet. Passing stool and flatus. He does note that he is now having some abdominal discomfort Objective Data Objective Data Vital Signs: Vital Signs Temp Pulse Resp BP Pulse Ox O2 Del Method O2 Flow Rate 99.0 F 57 L 16 122/65 H 96 Room Air 2 12/01/22 13:53 12/01/22 13:53 12/01/22 13:53 12/01/22 13:53 12/01/22 13:53 12/01/22 13:53 11/30/22 17:44 Oxygen Flow Rate (L/min) 2 Oxygen Delivery Method Room Air Weight: 207 lb 3.752 oz Body Mass Index (BMI) 29.6 Intake & Output: Intake and Output for Last 24 Hours 11/29/22 11/30/22 12/01/22 23:59 23:59 23:59 Intake Total 2252 / 2252 541.33 / 541.33 Output Total 500 / 1650 2250 / 2250 Balance 1752 / 602 -1708.67 / -1708.67 Lab / Micro Data Result Diagrams: 12/01/22 06:40 12/01/22 06:40 Labs: Laboratory Results - last 24 hr 12/01/22 06:40: WBC 14.7 H, RBC 5.16, Hgb 16.0, Hct 49.1, MCV 95.2 H, MCH 31.0, MCHC 32.6, RDW Std Deviation 51.5 H, RDW Coeff of Deangelo 14.6, Plt Count 260, MPV 10.8 12/01/22 06:40: Sodium 134 L, Potassium 3.9, Chloride 103, Carbon Dioxide 26.0, Anion Gap 5, BUN 16, Creatinine 1.30, Estim Creat Clear Calc 48.35, Est GFR (MDRD) Af Amer 69, Est GFR (MDRD) Non-Af 57 L, BUN/Creatinine Ratio 12.3, Glucose 150 H, Calcium 8.0 L Physical Exam GI GI Narrative: Abdomen is softer decompressed. Incisions clean and dry. Active bowel sounds. Assessment & Plan Assessment/Plan (1) Tubular adenoma of colon: PLAN: Patient is making incredibly strong progress. Because of his pain control we will hold onto him overnight and then I anticipate at this rate that we will be ready for discharge tomorrow Mauri Rowell M.D., F.A.C.S.
[2022-12-01] MEDS: oxyCODONE 5 MG Tablet PO ×2 (17:52→23:58)
[2022-12-01 20:00] VITALS: BP 138/76; PULSE 72; RESP 16; TEMP 36.6; O2SAT 94
[2022-12-02] MEDS: Acetaminophen 500 MG Tablet 1000 MG PO ×2 (00:11→06:09)
[2022-12-02 02:00] VITALS: BP 125/78; PULSE 58; RESP 16; TEMP 37.1; O2SAT 95
[2022-12-02] MEDS: oxyCODONE 5 MG Tablet PO (06:08)
[2022-12-02] MEDS: Levothyroxine 150 MCG Tablet PO (06:08)
--- NOTE | 2022-12-02 06:15 | PCM.PN.SRG ---
Subjective Subjective Patient has no specific complaints. He did require a single narcotic pain pill. He states that he had a moderately good bowel movement this morning. Pain level is at a 3. No nausea. Objective Data Objective Data Vital Signs: Vital Signs Temp Pulse Resp BP Pulse Ox O2 Del Method O2 Flow Rate 98.7 F 58 L 16 125/78 H 95 Room Air 2 12/02/22 02:00 12/02/22 02:00 12/02/22 02:00 12/02/22 02:00 12/02/22 02:00 12/02/22 02:00 11/30/22 17:44 Oxygen Flow Rate (L/min) 2 Oxygen Delivery Method Room Air Weight: 207 lb 3.752 oz Body Mass Index (BMI) 29.6 Intake & Output: Intake and Output for Last 24 Hours 11/30/22 12/01/22 12/02/22 23:59 23:59 23:59 Intake Total 2252 / 2252 541.33 / 541.33 Output Total 500 / 1650 2250 / 2250 Balance 1752 / 602 -1708.67 / -1708.67 Lab / Micro Data Result Diagrams: 12/01/22 06:40 12/01/22 06:40 Labs: Laboratory Results - last 24 hr 12/01/22 06:40: WBC 14.7 H, RBC 5.16, Hgb 16.0, Hct 49.1, MCV 95.2 H, MCH 31.0, MCHC 32.6, RDW Std Deviation 51.5 H, RDW Coeff of Deangelo 14.6, Plt Count 260, MPV 10.8 12/01/22 06:40: Sodium 134 L, Potassium 3.9, Chloride 103, Carbon Dioxide 26.0, Anion Gap 5, BUN 16, Creatinine 1.30, Estim Creat Clear Calc 48.35, Est GFR (MDRD) Af Amer 69, Est GFR (MDRD) Non-Af 57 L, BUN/Creatinine Ratio 12.3, Glucose 150 H, Calcium 8.0 L Physical Exam Resp normal respiratory effort GI GI Narrative: Soft, mildly distended, dressings clean and dry, no focal tenderness Assessment & Plan Assessment/Plan (1) Tubular adenoma of colon: PLAN: Patient appears to be making very strong progress. I believe that he is made sufficient recovery to allow for discharge. We have discussed postoperative care. Office follow-up in 10 days recommended. Mauri Rowell M.D., F.A.C.S.
[2022-12-02 07:40] VITALS: O2SAT 95
[2022-12-02 09:21] VITALS: BP 126/70; PULSE 86; RESP 18; TEMP 36.8; O2SAT 98
--- NOTE | 2022-12-02 09:32 | NURSING ---
pt declines am meds- states he will take care of them when he goes home.
--- NOTE | 2022-12-02 09:36 | NURSING ---
said nurse notified pharmacy, informed them that pt would like scripts brought to room when it is ready.
--- NOTE | 2022-12-02 10:19 | PHA.DC.MC ---
Pharmacy Service has performed discharge medication reconciliation and counseling for this patient. 1. HYDROCODONE/ACETAMINOPHEN 5/325MG 1T PO Q6H PRN PAIN The patient's discharge medication list was reviewed for discrepancies and discrepancies were resolved. Home Medications ibuprofen 600 mg tablet 600 mg PO Q6H PRN pain 7 days #14 tabs 04/16/21 FreeStyle Lite Strips (blood sugar diagnostic) #100 ea 06/02/21 blood-glucose meter (FreeStyle [place] kit) #1 ea 06/02/21 lancets 28 gauge (FreeStyle Lancets) #100 ea 06/02/21 amlodipine 10 mg tablet 10 mg PO DAILY blood pressure #90 tabs 04/24/22 allopurinol 100 mg tablet 100 mg PO DAILY gout #90 tabs 07/20/22 multivitamin 1 tab PO DAILY SUPPLEMENT 08/06/22 vit C 250 mg-vit E 90 mg-zinc 40 mg-copper 1 nu-vubpyc-jaceas capsule (PreserVision AREDS-2) 1 tab PO BID SUPPLEMENT 08/06/22 sitagliptin phos 100 mg-metformin ER 1,000 mg tablet,extend rel 24h mp (Janumet XR) 1 tab PO DAILY blood glucose #90 tabs 11/12/22 budesonide 3 mg capsule,delayed,extended release 6 mg PO DAILY Check with primary doctor 11/16/22 carvedilol 3.125 mg tablet (Coreg) 3.125 mg PO BID BP 11/16/22 empagliflozin 25 mg tablet (Jardiance) 25 mg PO DAILY DIABETES 11/16/22 levothyroxine 150 mcg tablet 150 mcg PO DAILY THYROID 11/16/22 losartan 100 mg tablet 100 mg PO DAILY BP 11/16/22 sertraline 100 mg tablet 100 mg PO DAILY ANTIDEPPRESSANT 11/16/22 calcitriol 0.25 mcg capsule 0.25 mcg PO MOWEFR supplement #60 caps 11/23/22 hydrocodone-acetaminophen 5-325mg 5mg-325mg 1 tab PO Q6H PRN pain 3 days #10 tabs 12/02/22 The patient was counseled on the following discharge medications and changes in medications for homegoing were reviewed. The Reason for Use, instructions for use, and potential side effects were reviewed for all new medications. The patient's questions regarding all of their medications were answered. The patient was able to verbally demonstrate an understanding of their discharge medications.
== END 2022-12-02 10:27 | disposition home or self-care (01) | DRG 330 ==
LOC: ACINP 05:20 → MS3 08:55
PROVIDERS: Anesthesiology; Admitting Provider Surgery; PCP Internal Medicine; Referring Provider Surgery; Visit Provider Surgery
PROC: 0DTF4ZZ Resection of Right Large Intestine, Percutaneous Endoscopic Approach (ICD-10-PCS; CPT 44205; principal; 2022-11-30 07:10)
DX: D12.0 Benign neoplasm of cecum (principal); K43.0 Incisional hernia with obstruction, without gangrene; E11.40 Type 2 diabetes mellitus with diabetic neuropathy, unspecified; G47.33 Obstructive sleep apnea (adult) (pediatric); E89.0 Postprocedural hypothyroidism; I25.10 Atherosclerotic heart disease of native coronary artery without angina pectoris; I10 Essential (primary) hypertension; Z79.84 Long term (current) use of oral hypoglycemic drugs; Z79.890 Hormone replacement therapy; Z79.899 Other long term (current) drug therapy; Z87.19 Personal history of other diseases of the digestive system; Z87.891 Personal history of nicotine dependence; Z86.718 Personal history of other venous thrombosis and embolism
CPT/HCPCS: 36415; 80048; 80053; 80061; 82306; 82962; 83036; 83735; 84439; 84443; 84481; 85025; 85027; 88304; 88305; 88307; 88309; 94668; 94762; J7120; J2405; J3475; J3490

== ENCOUNTER 2023-03-09 14:11 | Outpatient (RCR) | payer MEDICARE, OTHER, SELFPAY | END 2023-03-27 23:59 | LOC: NS 14:11 | PROVIDERS: PCP Internal Medicine; Referring Provider Internal Medicine; Visit Provider Internal Medicine | DX: E11.42 Type 2 diabetes mellitus with diabetic polyneuropathy (principal); K21.9 Gastro-esophageal reflux disease without esophagitis; K22.70 Barrett's esophagus without dysplasia | CPT/HCPCS: 97802 ==

== ENCOUNTER 2023-08-17 05:30 | Day surgery (SDC) | payer MEDICARE, OTHER, SELFPAY ==
--- OUTSIDE RECORDS SUMMARY | 2023-08-17 05:33 | XMS RPT_ITS | CCD ---
Author Name Unknown Address [address] [place] [address] Organization [facility] Team Providers Care Spanish Lecturer Name Role Phone EMILIA MUÑIZ Unavailable Unavailable EMILIA MUÑIZ Unavailable Unavailable EMILIA MUÑIZ Unavailable Unavailable JULISSA MERIDA Unavailable Unavailable NANI, LISANDRO-CHI Unavailable Unavailable CARYN MORALES Unavailable Unavailable Clay Gonsalves Unavailable Unavailable CLAY GONSALVES Unavailable Unavailable BRINACLAY ORDOÑEZ Unavailable Unavailable NANI, LISANDRO-CHI Unavailable Unavailable Juan David Johnson Primary Care Provider Nani, Lisandro Chi Primary Care Provider Allergies Allergy Classification Reported Allergen(s) Allergy Type Date of Onset Reaction(s) Facility Angiotensin 2 Receptor Blockers (ARB) (1 source) Losartan Drug Allergy 8 [facility] Angiotensin Converting Enzyme (TWYLA) Inhibitors (1 source) Lisinopril Drug Allergy [address] [facility] Work Phone: HMG-CoA Reductase Inhibitors (statins) (1 source) Lovastatin Drug Allergy 2 [facility] Latex (1 source) Latex Substance Allergy 0 [facility] Work Phone: (2 sources) lisinopril; Translations: [LISINOPRIL] Drug Allergy 7 [facility] Repository (2 sources) losartan; Translations: [facility]OSARTAN] [facility] ADHESIVE TAPE-SILICONES; Translations: [ADHESIVE TAPE-SILICONES] Propensity to adverse reactions to drug (disorder) 7 [facility] Repository (1 source) Adhesive agent; Translations: [Adhesive] Propensity to adverse reactions (disorder) [facility] Repository Medications Completed/Discontinued Medications Medication Drug Class(es) Dates Sig (Normalized) Sig (Original) allopurinol 100 mg oral tablet (1 source) Xanthine Oxidase Inhibitor Start: 05-17-2009 ALLOPURINOL 100 MG TAB Take one(1) tablet daily. 90 3 05/17/2009 Active Problems Active Problems Problem Classification Problem Date Documented Date Episodic/Chronic Complications of surgical procedures or medical care (2 sources) Postprocedural hypothyroidism; Translations: [Postoperative hypothyroidism] Onset: 8 12-23-2007 Chronic Diabetes mellitus without complication (2 sources) Type 2 diabetes mellitus without complications; Translations: [Diabetes mellitus] Onset: 8 12-23-2007 Chronic Disorders of lipid metabolism (1 source) Hyperlipidemia; Translations: [Hyperlipidemia, unspecified] Onset: 9 07-04-2008 Chronic Disorders of lipid metabolism (1 source) Pure hypercholesterolemia, unspecified; Translations: [PURE HYPERCHOLESTEROLEMIA UNSPEC] Onset: 8 Diverticulosis and diverticulitis (1 source) Diverticulosis of colon; Translations: [Diverticulosis of large intestine without perforation or abscess without bleeding] Onset: 6 08-26-2007 Chronic Esophageal disorders (1 source) 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; Translations: [BARRETTS ESOPHAGUS W/O DYSPLASIA] Onset: 8 Chronic Essential hypertension (2 sources) Essential (primary) hypertension; Translations: [Essential hypertension] Onset: 8 08-28-2007 Chronic Gout and other crystal arthropathies (1 source) Gout; Translations: [Gout, unspecified] Onset: 8 08-28-2007 Chronic Osteoarthritis (1 source) Unspecified osteoarthritis, unspecified site; Translations: [UNSPECIFIED OSTEOARTHRITIS UNS SITE] Onset: 8 Chronic Other aftercare (2 sources) Encounter for follow-up examination after completed treatment for conditions other than malignant neoplasm; Translations: [ENC F/U EX AFTR CMPL TX NOT MAL KULDIP] Onset: 8 Episodic Other endocrine disorders (1 source) Hypoparathyroidism; Translations: [Hypoparathyroidism, unspecified] Onset: 8 12-23-2007 Chronic Other nutritional; endocrine; and metabolic disorders (1 source) Obesity; Translations: [Obesity, unspecified] Onset: 8 08-28-2007 Chronic Other nutritional; endocrine; and metabolic disorders (1 source) Hypocalcemia; Translations: [Hypocalcemia] Onset: 9 01-24-2009 Chronic Residual codes; unclassified (1 source) Obstructive sleep apnea (adult) (pediatric); Translations: [OBSTRUCTIVE SLEEP APNEA] Onset: 8 Chronic Residual codes; unclassified (1 source) Sleep apnea; Translations: [Sleep apnea, unspecified] Onset: 8 12-23-2007 Chronic Retinal detachments; defects; vascular occlusion; and retinopathy (1 source) Unspecified macular degeneration; Translations: [UNSPECIFIED MACULAR DEGENERATION] Onset: 8 Chronic Past or Other Problems Problem Classification Problem Date Documented Da te Episodic/Chronic Headache, including migraine (2 sources) Headache; Translations: [Headache] Onset: 08-04-2017 Episodic Malaise and fatigue (2 sources) Other fatigue; Translations: [Other fatigue] Onset: 08-04-2017 Episodic Other eye disorders (2 sources) Ocular pain, left eye; Translations: [Ocular pain, left eye] Onset: 06-23-2017 Episodic Other gastrointestinal disorders (1 source) Constipation; Translations: [Constipation, unspecified] Onset: 07-02-2011 07-02-2011 Episodic Other male genital disorders (1 source) Disorder of prostate; Translations: [Disorder of prostate, unspecified] Onset: 08-26-2007 08-28-2007 Episodic Other non-traumatic joint disorders (2 sources) Pain in unspecified joint; Translations: [Pain in unspecified joint] Onset: 08-04-2017 Episodic Residual codes; unclassified (1 source) Family history of ischemic heart disease; Translations: [Family history of ischemic heart disease and other diseases of the circulatory system] Onset: 07-04-2008 07-04-2008 Episodic Unclassified (3 sources) Elevated C-reactive protein (CRP); Translations: [Patient encounter status] Onset: 07-01-2005 08-26-2007 Episodic Results Test Name Value Interpretation Reference Range Facil ity Encounters Encounter Date Encounter Type Care Provider Facility Start: 06-08-2018 End: 06-08-2018 Patient encounter procedure CLAY Briseno [facility] Start: 06-08-2018 Patient encounter procedure Clay Gonsalves Facility:[facility] Start: 08-04-2017 End: 08-04-2017 Ambulatory [facility] Start: 06-23-2017 End: 06-23-2017 [facility] Start: 06-11-2017 Ambulatory JULISSA MERIDA [facility] Start: 05-18-2017 End: 05-18-2017 Ambulatory [facility] Start: 08-06-2014 End: 08-06-2014 Telephone encounter Mauri Rowell MD Work Phone: General Surgery Procedures Date Procedure Procedure Detail Performing Clinician Start: 09-17-2015 Colonoscopy Mauri marquez MD Work Phone: Plan of Treatment Date Care Activity Detail Author Start: 02-26-2021 Influenza vaccination INFLUENZA (Sea son Ended) [facility] Start: 09-16-2020 Screening for malign ant neoplasm of colon [facility] Start: 07-22-2014 PNEUMOVAX AGE 65 AND OVER WITH 5YR LOOKBACK (#1) PNEUMOVAX AGE 65 AND OVER WITH 5YR LOOKBACK (#1) [facility] Start: 07-31-2012 Hepatitis C antibody , confirmatory test DILATED RETINAL EXAM [facility] Start: 06-19-2012 Hepatitis B surface antibody level LDL CHOLESTEROL [facility] Start: 07-22-2010 3 comp foot exam completed DIABETIC FOOT EXAM [facility] Start: 01-08-2010 Hemoglobin A1c/Hemoglobin.total in Blood HBA1C [facility] Start: 2009 ADVANCE DIRECTIVE DISCUSSION ADVANCE DIRECTIVE DISCUSSION [facility] Start: 10-31-2009 Hepatitis B screening URINE AL BUMIN:CREATININE RATIO [facility] Start: 1994 Screening for malign ant neoplasm of colon [facility] Start: 1994 SHINGRIX VACCINE (1 of 2) NI GRIX VACCINE (1 of 2) [facility] Start: 11-07-1963 Urine microalbumin profile DTAP,TDAP ,TD (1 - Tdap) [facility] Start: 1962 HEPATITIS C SCREENING HEPATITIS C SC REENING [facility] Start: 1956 Adult depression scr eening assessment DEPRESSION SCREENING [facility] Immunizations Immunization Date Immunization Notes Care Provider Katia hunter 07-22-2009 pneumococcal polysaccharide vaccine, 23 valent Mauri Rowell MD Work Phone: [facility] Payers Date Payer Category Payer Unknown FOR LIFE [id number] 2014-Present Indemnity [id number] 2009 Medicare [id number] 2009 Medicare [id number] 1959 [employer] ( and others) [id number] 1959 Medicare [id number] 1945 Unknown [id number] 1945 Unknown [id number] Social History Date Type Detail Facility Start: 08-06-2014 [facility] History of tobacco use Cigarette Smoker [facility] Start: 08-06-2014 Tobacco use and exposure Never used 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 Start: 1945 Sex Assigned At Not on file C [facility] Medical Equipment Procedure Code Equipment Code Equipment Origin al Text Equipment Identifier Dates test sugars once daily Start: 06-05-2008 Note 09-10-2014 Telephone Encounter - Leonela Malone LPN - 09/10/2014 1:51 PM EDTTelephone Encounter - Maryjane Garcia Ma - 08/15/2014 10:37 AM EST Note Date & Type Note Facility 09-10-[address] Rowell pt should be rescheduled for repeat colonoscopy based on poor bowel prep. pt message was left to inform him he should check with insurance company regarding coverage for this prior to being scheduled as we are not sure if they will cover. requested pt to call our office with their response so that Dr. Rowell may be given this info as well as manufacturing scheduler. Leonela Malone LPN Procedure r/s per office request: scheduling conflict. ASC: Please see updated cure form to reflect 08-31-2014 procedure date. Maryjane Garcia Ma documented in this encounter 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 Expl anation Advance Directive(s) Advance Directive(s) 09/17/2015 5:52 AM Additional Source Comments (unrecognized sect ion and content) No Status Records FoundNo Status Records FoundNo Status Records FoundNo Status Records Found INFORMATION SOURCE (unrecogn ized section and content) DATE CREATED AUTHOR AUTHOR'S ORGANIZ ATION 12/21/2017 [facility] DATE CREATED AUTHOR AUTHOR'S ORGANIZ ATION 06/15/2018 [facility] DATE CREATED AUTHOR AUTHOR'S ORGANIZ ATION 06/17/2018 [facility] Source Comments (unrecognize d section and content) In the event this informatio n is protected by the Federal Confidentiality of Alcohol and Drug Abuse Patient Records regulations: The Federal rules restrict any use of the information to criminally investigate or prosecute any alcohol or drug abuse patient.[facility] Reason for Visit (unrecogniz ed section and content) FOR RECORDS PERTAINING TO PATIENTS WHO ARE OR HAVE BEEN ENROLLED IN A CHEMICAL DEPENDENCY/SUBSTANCEABUSE PROGRAM, SOME INFORMATION MAY BE OMITTED. This clinical summary was aggregated from multiple sources. Caution should be exercised in using it in the provision of clinical care. This summary normalizes information from multiple sources, and as a consequence, information in this document may materially change the coding, format and clinical context of patient data. In addition, data may be omitted in some cases. CLINICAL DECISIONS SHOULD BE BASED ON THE PRIMARY CLINICAL RECORDS. [employer] [facility]. provides no warranty or guarantee of the accuracy or completeness of information in this document.
--- NOTE | 2023-08-17 05:56 | HP.PCM_ITS ---
History and Physical Date of Admission: 08/17/23 Visit Reasons: RECALL LETTER FOR EGD Chief Complaint: F/u for abnormal serum proteins. Allergies adhesive Allergy (Verified 07/09/23 13:40) MbkhTusfole-WTR-GkP Reductase Inhibitor [Icqqsrr-Yvt-Ofz Reductase Inhibitor] Adverse Reaction (Intermediate, Verified 07/09/23 13:40) Diarrhealisinopril Adverse Reaction (Verified 07/09/23 13:40) Other Medications ibuprofen 600 mg tablet 600 mg PO Q6H PRN pain 7 days #14 tabs 04/16/21 [Rx Confirmed 07/09/23] blood-glucose meter (FreeStyle [place] kit) #1 ea 06/02/21 [Rx Confirmed 07/09/23] multivitamin 1 tab PO DAILY SUPPLEMENT 08/06/22 [History Confirmed 07/09/23] vit C 250 mg-vit E 90 mg-zinc 40 mg-copper 1 iv-ogffxi-remmxh capsule (PreserVision AREDS-2) 1 tab PO BID SUPPLEMENT 08/06/22 [History Confirmed 07/09/23] sitagliptin phos 100 mg-metformin ER 1,000 mg tablet,extend rel 24h mp (Janumet XR) 1 tab PO DAILY blood glucose #90 tabs 11/12/22 [Rx Confirmed 07/09/23] sertraline 100 mg tablet 100 mg PO DAILY ANTIDEPPRESSANT 11/16/22 [History Confirmed 07/09/23] calcitriol 0.25 mcg capsule 0.25 mcg PO MOWEFR supplement #60 caps 11/23/22 [Rx Confirmed 07/09/23] allopurinol 100 mg tablet 100 mg PO DAILY gout #90 tabs 01/15/23 [Rx Confirmed 07/09/23] empagliflozin 25 mg tablet (Jardiance) 25 mg PO DAILY DIABETES #90 tabs 03/16/23 [Rx Confirmed 07/09/23] amlodipine 10 mg tablet See Rx Instructions .Route .COMPLEX #90 tabs 04/01/23 [Rx Confirmed 07/09/23] levothyroxine 150 mcg tablet 150 mcg PO DAILY THYROID #90 tabs 04/12/23 [Rx Confirmed 07/09/23] losartan 100 mg tablet 100 mg PO DAILY BP #90 tabs 05/05/23 [Rx Confirmed 07/09/23] fluoxetine 20 mg capsule 20 mg PO DAILY #30 caps 05/27/23 [Rx Confirmed 07/09/23] FreeStyle Lite Strips (blood sugar diagnostic) #100 ea 06/14/23 [Rx Confirmed 07/09/23] lancets 28 gauge (FreeStyle Lancets) #100 ea 06/14/23 [Rx Confirmed 07/09/23] budesonide 3 mg capsule,delayed,extended release 9 mg PO DAILY 06/15/23 [History Confirmed 07/09/23] colestipol 1 gram tablet 1 g PO ONCE 06/15/23 [History Confirmed 07/09/23] carvedilol 6.25 mg tablet 6.25 mg PO BID BP #180 tabs 06/16/23 [Rx Confirmed 07/09/23] PFSH Medical History Abnormal neutrophil count Acute leg pain Agent orange exposure AMD (age related macular degeneration) Arteriovenous malformation (AVM) Arthritis Bilateral inguinal hernia Calf tenderness Cardiology follow-up encounter cataracts Change in bowel habit CPAP (continuous positive airway pressure) dependence Deep vein thrombosis (DVT) of left lower extremity (08/2020) Degeneration of intervertebral disc of cervical region Diverticulosis DVT (deep venous thrombosis) Encounter for pre-operative cardiovascular clearance Essential (primary) hypertension External bleeding hemorrhoids Former smoker Gout Hemangioma Hematoma History of goiter History of irregular heartbeat History of kidney stones History of meniscus repair of left knee Hypothyroidism associated with surgical procedure Injury of head and neck Internal bleeding hemorrhoids Kidney stones Left knee DJD Medial ankle sprain Neck pain Neuropathy Nonobstructive atherosclerosis of coronary artery Obesity SAMMI (obstructive sleep apnea) Other acute postprocedural pain Polycythemia Primary osteoarthritis of left knee Segmental and somatic dysfunction of cervical region Segmental and somatic dysfunction of thoracic region Shortness of breath on exertion Sleep apnea Superficial thrombophlebitis of arm Thyroid disease Tinnitus Type 2 diabetes mellitus with diabetic polyneuropathy Umbilical hernia without mention of obstruction or gangrene Vision loss Wears glasses Surgical History History of appendectomy History of cardiac catheterization (2000) History of cholecystectomy History of colon resection History of esophagogastroduodenoscopy (EGD) History of hemorrhoidectomy (~09/2020) History of left knee replacement History of prostate surgery History of thyroidectomy History of total knee arthroplasty History of total knee replacement Hx of bilateral inguinal hernia repair Hx of cataract surgery Hx of colonoscopy Hx of colonoscopy Hx of rhinoplasty Hx of transurethral resection of prostate Hx of umbilical hernia repair Family History Father Heart disease CAD (coronary artery disease) Sudden cardiac Myocardial infarctionMother Heart disease HypertensionBrother Flowers's esophagus Esophageal cancer Heart disease Sudden cardiac , Onset Age: 72 CAD (coronary artery disease) CVA (cerebral vascular accident) Depression Myocardial infarctionDaughter Flowers's esophagusOther Blindness Social History Smoking Status: Former smoker quit date: 06/28/71 alcohol intake: never substance use type: does not use caffeine: Yes what type of physical activity do you participate in: walking frequency: 1-2 times per week seatbelt use: always HPI HPI HPI: 77-year-old gentleman. I have most recently seen him January 20, 2023. At that point I had assisted him with a laparoscopic right colectomy for nonresectable colon polyp. Final pathology showed tubular adenoma multifocal sessile involving the ileocecal valve and a smaller tubular adenoma. 12 benign colonic lymph nodes. I have previously assisted him with a PPH stapled hemorrhoidopexy. His index colonoscopy was performed by Dr. Jason at that time. He was having minimal hemorrhoidal complaints at the time of his office visit. Previously August 08, 2021 I performed an upper endoscopy for him. Esophageal mucosal changes demonstrated a long segment Flowers's. I thought it was possibly 13 cm long. Small hiatal hernia. He was maintained on omeprazole therapy. Pathology demonstrated mild gastritis. Flowers's esophagus in the distal esophagus with focal chronic inflammation negative for dysplasia. That was at 40 cm. Similar findings at 35 cm. Similar findings at 30 cm. Similar findings at 27 cm. H. pylori was negative. He tells me today that at some point he was taken off of his omeprazole therapy and is not currently on it. He only takes an acids. He does have reflux symptoms particularly nightly. No bright red blood per rectum or melena. He has had no acute swallowing problems. ROS General General: No weight change, appetite, fatigue, colon cancer, breast cancer or weakness HEENT HEENT: No difficulty swallowing, eye injury, eye surgery, swollen glands or hoarseness Endo Endocrine: No thyroid disease, diabetes mellitus, thyroid cancer, Hair loss, heat intolerance or cold intolerance Skin Skin: No rash or changing moles Breast Breast: No left breast lump, right breast lump, nipple discharge, breast pain, abnormal mammogram, abnormal US or breast enlargement Musc Musculoskeletal: No back problems, arthritis, rheumatoid arthritis, gout or joint pain Cardio Cardiovascular: No murmur, pacemaker, heart disease, atrial fibrillation, high blood pressure, heart attack, heart stent, palpitations, shortness of breat with exertion or chest pain Psych Psychiatric: No depression, anxiety or hearing voices Resp Respiratory: No shortness of breath, No sleep apnea, No cough, No COPD, No asthma, No emphysema and No wheezing Gastro Gastrointestinal: No abdominal pain, No nausea or vomiting, No diarrhea, No co nstipation, No blood in stool, No acid reflux, No hemorrhoids, No ulcers, No gallbladder problem and No black,tarry stools Aaron Hematologic: No blood thinners, No blood disorders, No bleeding, No anemia and No blood clots Neuro Neurologic: No system reviewed and no additional complaints, except as documented, No as per HPI, No abnormal gait, No abnormal hearing, No abnormal movements, No abnormal speech, No behavioral changes, No burning sensations, No confusion, No convulsions, No disequilibrium, No dizziness, No localized weakness, No frequent falls, No headache(s), No lack of coordination, No loss of vision, No memory loss, No numbness, No other visual disturbances, No radicular pain, No restless legs, No sensory deficit, No syncope, No tingling, No tremor(s), No weakness and No other Exam Const General: cooperative, comfortable and no acute distress Nutritional Appearance: overweight [facility] Head: normal to inspection Eyes General: appearance normal, both eyes and all related structures Neck Neck: normal visual inspection Chest Chest palpation & inspection: normal inspection of the chest Resp Effort & Inspection: normal respiratory effort Auscultation: clear to auscultation bilaterally Cardio Rate: regular rate Rhythm: regular rhythm GI Palpation: soft and no hepatosplenomegaly Musc Cervical Spine: normal cervical lordosis Skin General: no rashes or lesions noted Neuro General: patient alert, patient awake and patient oriented x3 Extrem General: no calf tenderness Psych Appearance: grossly normal Assessment and Plan Assessment and Plan (1) GERD (gastroesophageal reflux disease): Status: Chronic Qualifiers: Esophagitis presence: esophagitis presence not specified Qualified Code(s): K21.9 - Gastro-esophageal reflux disease without esophagitis (2) Flowers esophagus: Status: Chronic Qualifiers: Flowers's esophagus type: without dysplasia Qualified Code(s): K22.70 - 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 Previous upper endoscopy was August 08, 2021. I did recommend a short-term follow-up expressed because of the length of his Flowers's. Multiple biopsies were taken at multiple levels fortunately no dysplasia identified. I did discuss with him the likelihood that he should be back on a proton pump inhibitor. He states that he was taken off of it by a physician and that he has been off of it now for quite a period of time. We will proceed with the upper endoscopy and Flowers's biopsies. We will then notify patient of pathology. Pending the results of that evaluation likely I will recommend that we resume his omeprazole 20 mg daily. He has had an opportunity to ask and have questions answered. I appreciate the ongoing opportunity of assisting with the surgical care. Copy: Dr. Annabelle Rowell M.D., F.A.C.S. I have examined the patient and the H&P has been reviewed. There are no clinical changes since date of exam. Mauri Rowell M.D., F.A.C.S.
[2023-08-17] MEDS: Lactated Ringers 1,000 ML 15 ML IV (06:09)
[2023-08-17 06:10] VITALS: BP 149/87; PULSE 82; RESP 18; TEMP 37; O2SAT 98; BMI 30.1
--- NOTE | 2023-08-17 06:30 | EGD_PTH ---
PATHOLOGY RESULTS PATIENT: MARY OBREGON LOC: EN U#:[id number] AGE/SX: 77/M ROOM: RE08/17/[address]: Dr. Mauri Rowell MD : 1945 BED: DIS: 08/17/2023 SPEC #: [id number] RECD: 08/17/23 11:28 STATUS: GEORGE BINGHAM #: [id number] ARA: 08/17/23 06:[address]: Mauri Rowell DEPT: SURGICAL PATHOLOGY RECD BY: Gabrielle Hartman ENTERED: 08/17/23 11:29 SP TYPE: EGD BIOPSY OT DR: Dr. Annabelle Foss MD Tissues: Gastric mucous membrane Esophageal mucous membrane Esophageal mucous membrane Procedures: Special Stain Group II Special Stain Group I Surgery Specimen Level IV GMS Stain (control) Alcian Blue/PAS (control) HEADER OPERATION: EGD, biopsy PRE-OP DIAGNOSIS: GERD, Flowers's esophagus TISSUE SUBMITTED: A - Gastric antrum biopsy, H. pylori and path, B - Distal esophagus biopsies, C - Mid esophagus biopsy MICROSCOPIC DIAGNOSIS A. Gastric antrum, biopsy: Chronic gastritis. See comment. B. Distal esophagus, biopsy: Gastroesophageal junctional mucosa with chronic inflammation. Extensive goblet cell metaplasia consistent with Flowers's esophagus. No evidence of dysplasia. Focal changes of reflux. See comment. C. Mid esophagus, biopsy: Ulceration with associated acute and chronic inflammation and fibrinopurulent material. Negative for fungal organisms. See comment. AM:carolann 08/18/2023 COMMENT A. The results of immunohistochemistry for Helicobacter pylori will be reported separately ([id number]). B. Immunohistochemistry ([id number]) for P53 and Ki-67 will be performed and results will be reported separately. Alcian blue/PAS stain with matched control supports the above diagnosis. C. GMS stain with matched control was used in the evaluation of this case. In the area of ulcer, eosinophils increased greater than 20 per high power field. Clinical correlation is suggested. MICROSCOPIC DESCRIPTION Slides are reviewed. GROSS DESCRIPTION A - Received in fixative is one container labeled with the patient's name and designated gastric antrum. The specimen consists of one irregular fragment of light perdomo soft tissue that measures 0.7 x 0.2 x 0.1 cm. The specimen is totally submitted in one cassette. B - Received in fixative is one container labeled with the patient's name and designated distal esophagus. The specimen consists of multiple irregular fragments of light perdomo soft tissue that in aggregate measure 2.5 x 1.0 x 0.1 cm. The specimen is totally submitted in one cassette. C - Received in fixative is one container labeled with the patient's name and designated mid esophagus. The specimen consists of two irregular fragments of light perdomo soft tissue that in aggregate measure 0.5 x 0.5 x 0.1 cm. The specimen is totally submitted in one cassette. / MICKY:carolann 08/17/2023 TC:2 CPT: 49648 x3, 12375, 37220
--- NOTE | 2023-08-17 06:30 | IMM_PTH ---
PATHOLOGY RESULTS PATIENT: MARY OBREGON LOC: EN U#:[id number] AGE/SX: 77/M ROOM: RE08/17/[address]: Dr. Mauri Rowell MD : 1945 BED: DIS: 08/17/2023 SPEC #: [id number] RECD: 08/17/23 14:34 STATUS: GEORGE REQ #: [id number] ARA: 08/17/23 06:[address]: Mauri Rowell DEPT: IMMUNOHISTOCHEMISTRY RECD BY: Delaney Juarez ENTERED: 08/17/23 14:34 SP TYPE: IMMUNO OTHR DR: Dr. Annabelle Foss MD Tissues: Stomach, NOS Esophagus, NOS Procedures: H Pylori (initial) P53 (initial) KI-67 (add) PHYSICIAN & INSTITUTION [place] [id number] SPECIMEN INFORMATION: Tissue Source: A - Gastric antrum, B - Distal esophagus Clinical Info: GERD, Flowers's esophagus Specimen Number: [id number] A & B CPT code: 77007 x2, 19548 METHODOLOGY: Deparaffinized sections of prefer/formalin-fixed tissue or PAP/DQ stained slides are incubated with monoclonal/polyclonal antibodies/oligonucleotide probes. Localization is made via biotin free immunoperoxidase method. Appropriate controls are performed and reacted as expected. Results on target cell population are indicated in the following table: RESULTS: ANTIBODY / CLONE RESULT Block A H Pylori (polyclonal) negative Block B P53 (DO-7) negative, wild type pattern Ki-67 (30-9) positive, low These tests were developed and their performance characteristics determined by [facility]. They may not have been cleared or approved by the U.[place]. Food and Drug Administration. The FDA has determined that such clearance or approval is not necessary. The above immunohistochemical/dualISH markers are ordered and reviewed by the Pathologist. INTERPRETATION: A. Gastric antrum, biopsy: Negative for Helicobacter pylori organisms. B. Distal esophagus, biopsy: No evidence of dysplasia. AM:carolann 08/20/2023
[2023-08-17 06:55] VITALS: BP 107/90; BP 149/87; PULSE 83; RESP 20; TEMP 37.5; O2SAT 92
--- NOTE | 2023-08-17 06:57 | OP.CCLET_ITS ---
08/17/2023 Annabelle Foss [facility] [address] [place] [address] Re : Upper GI endoscopy procedure for Koffi Carranza Dear Dr. Foss This procedure was performed on Thursday, August 17, 2023. 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 Biopsied. - LA Grade A reflux esophagitis with no bleeding. Biopsied. - Chronic gastritis with hemorrhage. Biopsied. - Normal. Recommendations : - Discharge patient to home. - Resume previous diet. - Continue present medications. - Telephone my office for pathology results in 1 week. My findings are described in the full procedure note, which is enclosed. If I can be of further assistance, please feel free to contact me at Doctor phone number(s): Work: . Sincerely, Mauri Rowell MD 08/17/2023 6:55:52 AM This report has been signed electronically.
--- NOTE | 2023-08-17 06:57 | OP.EGD_ITS ---
Patient Name: Koffi Carranza Procedure Date: 08/17/2023 6:21 AM Date of : 1945 Age: 77 Procedure: Upper GI endoscopy Indications: Surveillance for malignancy due to personal history of Flowers's esophagus Providers: Mauri Rowell MD Referring MD: Annabelle Foss Medicines: See the Anesthesia note for documentation of the administered medications Complications: No immediate complications. Procedure: Pre-Anesthesia Assessment: - Prior to the procedure, a History and Physical was performed, and patient medications and allergies were reviewed. The patient's tolerance of previous anesthesia was also reviewed. The risks and benefits of the procedure and the sedation options and risks were discussed with the patient. All questions were answered, and informed consent was obtained. Prior Anticoagulants: The patient has taken no anticoagulant or antiplatelet agents. ASA Grade Assessment: II - A patient with mild systemic disease. After reviewing the risks and benefits, the patient was deemed in satisfactory condition to undergo the procedure. After obtaining informed consent, the endoscope was passed under direct vision. Throughout the procedure, the patient's blood pressure, pulse, and oxygen saturations were monitored continuously. The Endoscope was introduced through the mouth, and advanced to the second part of duodenum. The upper GI endoscopy was accomplished without difficulty. The patient tolerated the procedure well. Scope In: 6:31:45 AM Scope Out: 6:48:00 AM Total Procedure Duration Time 0 hours 16 minutes 15 seconds Findings: There were esophageal mucosal changes secondary to established long-segment Flowers's disease present in the mid esophagus and in the distal esophagus. The maximum longitudinal extent of these mucosal changes was 11 cm in length. Mucosa was biopsied with a cold forceps for histology. The Flowers's esophagus extended from 29 cm down to approximately 40 cm at the diaphragmatic hiatus. It was 360 degrees circumferentially involved for that entire length. Multiple biopsies were obtained along this entire distance and progressive stepwise fashion. LA Grade A (one or more mucosal breaks less than 5 mm, not extending between tops of 2 mucosal folds) esophagitis with no bleeding was found 28 cm from the incisors. Biopsies were taken with a cold forceps for histology. This was very close to the proximal stent of the known Flowers's esophagus Diffuse moderate inflammation with hemorrhage characterized by erythema was found in the stomach. Biopsies were taken with a cold forceps for histology. The in the duodenum was normal. 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 Biopsied. - LA Grade A reflux esophagitis with no bleeding. Biopsied. - Chronic gastritis with hemorrhage. Biopsied. - Normal. Recommendation: - Discharge patient to home. - Resume previous diet. - Continue present medications. - Telephone my office for pathology results in 1 week. Procedure Code(s): --- Professional --- 23778, Esophagogastroduodenoscopy, flexible, transoral; with biopsy, single or multiple Diagnosis Code(s): --- Professional --- K22.70, 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 K21.00, Gastro-esophageal reflux disease with esophagitis, without bleeding K29.51, Unspecified chronic gastritis with bleeding CPT copyright 2021 [employer] [place] [employer]. All rights reserved. The codes documented in this report are preliminary and upon end touching machine operator review may be revised to meet current compliance requirements. Mauri Rowell MD 08/17/2023 6:55:52 AM This report has been signed electronically. Number of Addenda: 0 Note Initiated On: 08/17/2023 6:21 AM
[2023-08-17 07:00] VITALS: BP 101/78; BP 149/87; PULSE 79; RESP 18; O2SAT 93
[2023-08-17 07:05] VITALS: BP 112/77; BP 149/87; PULSE 81; RESP 20; O2SAT 93
[2023-08-17 07:07] VITALS: BP 131/76; BP 149/87; PULSE 75; RESP 18; TEMP 37.2; O2SAT 94
[2023-08-17 07:37] VITALS: BP 149/87
[2023-08-17 08:02] LABS: Bedside Glucose 191 mg/dL (74-106)
== END 2023-08-17 07:43 | disposition home or self-care (01) ==
LOC: EN 05:31 → AC 05:33
PROVIDERS: PCP Internal Medicine; Referring Provider Internal Medicine; Visit Provider Surgery
PROC: 0DJ08ZZ Inspection of Upper Intestinal Tract, Via Natural or Artificial Opening Endoscopic (ICD-10-PCS; CPT 43235; principal; 2023-08-17 06:25)
DX: K29.51 Unspecified chronic gastritis with bleeding (principal); E11.42 Type 2 diabetes mellitus with diabetic polyneuropathy; I10 Essential (primary) hypertension; Z79.84 Long term (current) use of oral hypoglycemic drugs; K22.70 Barrett's esophagus without dysplasia; I25.10 Atherosclerotic heart disease of native coronary artery without angina pectoris; K21.00 Gastro-esophageal reflux disease with esophagitis, without bleeding; E07.9 Disorder of thyroid, unspecified; Z87.891 Personal history of nicotine dependence; Z80.0 Family history of malignant neoplasm of digestive organs; Z79.899 Other long term (current) drug therapy; Z79.890 Hormone replacement therapy; Z86.010 Personal history of colon polyps; E78.2 Mixed hyperlipidemia; Z90.49 Acquired absence of other specified parts of digestive tract
CPT/HCPCS: 43239; 82962; 88305; 88312; 88313; 88341; 88342; J7120; J2405

== ENCOUNTER → 2023-10-02 | Outpatient (CLI) | payer MEDICARE, OTHER, SELFPAY ==
[2023-10-02 12:59] LABS: Free T3 1.6 pg/mL (2.18-3.98); T4 Free Direct 1.16 ng/dL (0.76-1.46); Thyroid Stim Hormone (TSH) 0.89 uIU/mL (0.358-3.74)
[2023-10-04 15:08] LABS: Gastrin, Serum 52 pg/mL (0-115)
== END | disposition home or self-care (01) ==
LOC: LAB 11:34
PROVIDERS: PCP Internal Medicine; Referring Provider Internal Medicine Gastroenterology; Visit Provider Internal Medicine Gastroenterology
DX: K21.9 Gastro-esophageal reflux disease without esophagitis (principal); E89.0 Postprocedural hypothyroidism
CPT/HCPCS: 36415; 82941; 84439; 84443; 84481

== ENCOUNTER → 2023-10-11 | Outpatient (CLI) | payer MEDICARE, OTHER, SELFPAY ==
--- NOTE | 2023-10-11 11:30 | NM_ITS ---
CLINICAL: 77-year-old male with history of clinical gastroparesis. SEMI-SOLID PHASE 99m Tc SULFUR COLLOID GASTRIC EMPTYING STUDY COMPARISON: None available FINDINGS: The patient was administered 1.1 mCi of 99m Tc sulfur colloid mixed with oatmeal and consumed per os. Image acquisitions in the anterior-posterior projections were obtained for 60 minutes. There is prompt visualization of the stomach. There is no gastroesophageal reflux identified. The T ? linear fit was calculated to be 56.66 minutes, (Normal: 12-56 minutes). NM/Gastric Emptying Study IMPRESSION: 1. BORDERLINE ABNORMAL 99m Tc sulfur colloid semi-solid phase (oatmeal) gastric emptying imaging examination. A. There is borderline abnormal semi-solid phase gastric emptying compared to normal controls. (Ronda et al, J Nucl Med Tech 38: 186, 2010). Electronically Signed: Kamaljit Morgan DO at 9:21 EDT ,
== END | disposition home or self-care (01) ==
LOC: NM 11:29
PROVIDERS: PCP Internal Medicine; Referring Provider Internal Medicine Gastroenterology; Visit Provider Internal Medicine Gastroenterology
DX: K21.9 Gastro-esophageal reflux disease without esophagitis (principal)
CPT/HCPCS: 78264; A9541

== ENCOUNTER → 2023-10-16 | Outpatient (CLI) | payer MEDICARE, OTHER, SELFPAY ==
--- NOTE | 2023-10-16 10:33 | US_ITS ---
STUDY: RENAL ULTRASOUND - COMPLETE REASON FOR EXAM: Male, 77 years old. PAIN TECHNIQUE: Ultrasound evaluation of the kidneys was performed with real-time and static parrish-scale imaging. COMPARISON: None. FINDINGS: RIGHT KIDNEY: Normal location of the right kidney, which is normal in size. The right kidney measures 13.1 cm. . There is a normal cortex of the right kidney. 2 renal cyst measures 62 mm and 37 mm. There are no right renal calculi. There is no right hydronephrosis. DISTAL RIGHT URETER: There is non-visualization of the distal right ureter. There is no demonstrated right ureterovesical junction calculus. There is no demonstrated right ureteral jet. LEFT KIDNEY: Normal location of the left kidney, which is normal in size. The left kidney measures 13 cm. . There is a normal cortex of the left kidney. Single renal cyst measures 18 x 20 mm. There are no left renal calculi. There is no left hydronephrosis. DISTAL LEFT URETER: There is non-visualization of the distal left ureter. There is no demonstrated left ureterovesical junction calculus. There is no demonstrated left ureteral jet. AORTA: There is obscuration of the abdominal aorta by overlying bowel gas I.V.C.: It is not visualized. There is too much overlying bowel gas. BLADDER: The distended urinary bladder has a volume in cc of 106. Post void volume is 11 cc. There is a normal wall thickness of the distended urinary bladder. There is no demonstrated mass within the urinary bladder. There are no demonstrated bladder calculi. US/Kidney and Bladder IMPRESSION: No acute findings of the ultrasound of the kidneys and urinary bladder. Note: Renal size measurements and size measurements of other organs etc may vary depending on modality and print press operator dependent variations in measurements. (i.e. Measuring a kidney on an US does not correlate with an exact same measurement on a CT.) Electronically Signed: Raheem Canchola MD at 15:55 EDT ,
== END | disposition home or self-care (01) ==
LOC: US 10:20
PROVIDERS: PCP Internal Medicine; Referring Provider Internal Medicine; Visit Provider Internal Medicine
DX: R39.89 Other symptoms and signs involving the genitourinary system (principal); N23 Unspecified renal colic
CPT/HCPCS: 76770

== ENCOUNTER 2023-11-30 12:57 | Outpatient (CLI) | payer MEDICARE, OTHER, SELFPAY ==
--- NOTE | 2023-11-30 13:00 | RAD_ITS ---
STUDY: X-RAY - LUMBAR SPINE REASON FOR EXAM: Male, 78 years old. Back pain TECHNIQUE: AP and lateral view(s) of the lumbar spine were obtained. COMPARISON: None FINDINGS: Normal lumbar lordosis. There is no substantial scoliosis. Grade 1 spondylolisthesis at L4-5 No evidence for acute fracture or subluxation. No lytic or sclerotic bony lesions.. Mild multilevel disc space narrowing and endplate spurring The soft tissue structures are unremarkable. RAD/Lumbar Spine 2 or 3 Views IMPRESSION: Mild spondylosis. No acute fracture or other significant bony pathology. Electronically Signed: Aneesh Celaya MD at 18:53 EDT ,
== END 2023-11-30 23:59 | disposition home or self-care (01) ==
LOC: RAD 12:58
PROVIDERS: PCP Internal Medicine; Referring Provider Internal Medicine; Visit Provider Internal Medicine
DX: R10.9 Unspecified abdominal pain (principal); M54.9 Dorsalgia, unspecified; D72.829 Elevated white blood cell count, unspecified; E61.1 Iron deficiency; R77.1 Abnormality of globulin
CPT/HCPCS: 36415; 72100; 80053; 82784; 83615; 83883; 84165; 85025; 86334

== ENCOUNTER → 2024-04-19 | Outpatient (CLI) | payer MEDICARE, OTHER, SELFPAY ==
--- OUTSIDE RECORDS SUMMARY | 2024-04-19 07:16 | XMS RPT_ITS | CCD ---
Author Organization [facility] Care Team Providers Care Pet Trainer Name Role Phone EMILIA MUÑIZ Unavailable Unavailable EMILIA MUÑIZ Unavailable Unavailable EMILIA MUÑIZ Unavailable Unavailable JULISSA MERIDA Unavailable Unavailable NANI, LISANDRO-CHI Unavailable Unavailable CARYN MORALES Unavailable Unavailable Clay Ordoñez Unavailable Unavailable BRINAKAISER ORDOÑEZY Suzanna Unavailable Unavailable BRINA CLAY J Unavailable Unavailable NANI, LISANDRO-CHI Unavailable Unavailable Juan David Johnson Primary Care Provider NaniLisandro curry Chi Primary Care Provider [phone] Allergies Allergy Classification Reported Allergen(s) Allergy Type Date of Onset Reaction(s) Facility Angiotensin 2 Receptor Blockers (ARB) (1 source) Losartan Drug Allergy 8 [facility] Angiotensin Converting Enzyme (TWYLA) Inhibitors (1 source) Lisinopril Drug Allergy 9 [facility] Work Phone: HMG-CoA Reductase Inhibitors (statins) (1 source) Lovastatin Drug Allergy 2 [facility] Latex (1 source) Latex Substance Allergy 0 [facility] Work Phone: (2 sources) lisinopril; Translations: [LISINOPRIL] [facility] ([facility] sources) losartan; Translations: [LOSARTAN] Drug Allergy 7 [facility] Repository (1 source) ADHESIVE TAPE-SILICONES; Translations: [ADHESIVE TAPE-SILICONES] Propensity to adverse reactions to drug (disorder) [facility] ([facility]) Adhesive agent; Translations: [Adhesive] Propensity to adverse reactions (disorder) [facility] Repository Medications Completed/Discontinued Medications Medication Drug Class(es) Dates Sig (Normalized) Sig (Original) allopurinol 100 mg oral tablet (1 source) Xanthine Oxidase Inhibitor Start: 9 ALLOPURINOL 100 MG TAB Take one(1) tablet daily. 90 3 05/17/2009 Active Comment on above: Take one(1) tablet d aily. aspirin 81 mg chewable tablet (1 source) Platelet Aggregation Inhibitor, Nonsteroidal Anti-inflammator y Drug Start: 8 ASPIRIN 81 MG CHEWABLE TAB Take one(1) tablet daily. 0 08/08/2007 Active Comment on above: Take one(1) tablet d aily. atorvastatin 40 mg oral tablet (1 source) HMG-CoA Reductase Inhibitor take 1 tablet by mouth once daily atorvastatin (LIPITOR) 40 mg tablet Indications: History of colonic polyps Take 40 mg by mouth once daily. 0 Active Comment on above: Take 40 mg by mouth once daily. calcitriol 0.54525 mg oral capsule (1 source) Vitamin D3 Analog Start: 0 calcitriol(ROCALTROL 0.25 MCG CAP) Take one tablet Wed,Wed, Wed 90 3 01/21/2010 Active Comment on above: Take one tablet Wed, Wed, Fri calcium carbonate 1250 mg / cholecalciferol 125 unt oral tablet (1 source) Vitamin D Start: 0 End: 5 calcium carbonate/vitamin d3(CALCIUM 500 + D (D3) 500 MG-125 UNIT TAB) Take one(1) tablet two(2) times daily. 0 07/18/2009 08/24/2014 Discontinued (Course of therapy completed) Comment on above: Take one(1) tablet t wo(2) times daily. CPAP (1 source) Start: 0 CPAP Use as directed. 0 07/18/2009 Active Comment on above: Use as directed. hydroCHLOROthiazide 25 mg oral tablet (1 source) Thiazide Diuretic Start: 0 HYDROCHLOROTHIAZIDE 25 MG TAB Take one(1) tablet daily. 90 4 07/18/2009 Active Comment on above: Take one(1) tablet d aily. hydroCHLOROthiazide 25 mg / lisinopril 20 mg oral tablet (1 source) Thiazide Diuretic, Angiotensin Converting Enzyme Inhibitor take 1 tablet by mouth once daily lisinopril-hydrochloro thiazide (PRINZIDE, ZESTORETIC) 20-25 mg per tablet Indications: History of colonic polyps Take 1 tablet by mouth once daily. 0 Active Comment on above: Take 1 tablet by melvin th once daily. levothyroxine sodium 0.15 mg oral capsule (1 source) l-Thyroxine Start: 2 Levothyroxine 150 mcg ORAL Cap Take 150 mcg by mouth. 0 07/31/2011 Active Comment on above: Take 150 mcg by mout h. metFORMIN hydrochloride 500 mg oral tablet (1 source) Biguanide take 1 tablet by mouth twice daily at mealtime metFORMIN (GLUCOPHAGE) 500 mg tablet Indications: History of colonic polyps Take 500 mg by mouth twice daily with meals. 0 Active Comment on above: Take 500 mg by mouth twice daily with meals. metoprolol tartrate 50 mg oral tablet (1 source) beta-Adrenergic Damaris Start: 2 take 0.5 tablet by mouth twice daily metoprolol tartrate, short acting, 50 mg ORAL tablet Take 0.5 tablets by mouth twice daily. 0 07/31/2011 Active Comment on above: Take 0.5 tablets by mouth twice daily. MULTIVITAMIN TAB (1 source) Start: 8 MULTIVITAMIN TAB Take one(1) tablet daily. 0 06/05/2008 Active Comment on above: Take one(1) tablet d aily. omeprazole 20 mg delayed release oral capsule (1 source) Proton Pump Inhibitor take 1 capsule by mouth once daily omeprazole (PRILOSEC) 20 mg capsule Indications: History of colonic polyps Take 20 mg by mouth once daily. 0 Active Comment on above: Take 20 mg by mouth once daily. tamsulosin hydrochloride 0.4 mg oral capsule (1 source) alpha-Adrenergic Damaris End: 5 tamsulosin (FLOMAX) 0.4 mg cp24 Indications: History of colonic polyps Take 0.4 mg by mouth. 0 08/24/2014 Discontinued (Discontinued by another Health Care Provider) Comment on above: Take 0.4 mg by mouth . Problems Active Problems Problem Classification Problem Date [...] Results Test Name Value Interpretation Reference Range Facility [facility] Surgical Pathology Depar tmenton 06-08-2018 [facility] Surgical Pathology Department Name MARY [facility]REGON Pathologist: KM EPSTEIN, MDDate of Procedure: 06/08/2018Date Received: 06/09/2018Date Reported 06/13/2018Submitting Physician: CLAY ORDOÑEZ MDLocation[facility] Copy To/Referring/Attending:Pb CARDOZA M.D. Other External # [id number] FINAL DIAGNOSISA. ESOPHAGUS BIOPSY AT 39CM:--INTESTINAL METAPLASIA CONSISTENT WITH FLOWERS'S ESOPHAGUS. --NEGATIVE FOR DYSPLASIA. B. ESOPHAGUS BIOPSY AT 37CM: --INTESTINAL METAPLASIA CONSISTENT WITH FLOWERS'S ESOPHAGUS. --NEGATIVE FOR DYSPLASIA. C. ESOPHAGUS BIOPSY AT 35CM: --INTESTINAL METAPLASIA CONSISTENT WITH FLOWERS'S ESOPHAGUS. --NEGATIVE FOR DYSPLASIA. D. ESOPHAGUS BIOPSY AT 33CM: --INTESTINAL METAPLASIA CONSISTENT WITH FLOWERS'S ESOPHAGUS WITH SQUAMOUSOVERGROWTH. --FOCAL ACTIVE INFLAMMATION PRESENT, INDEFINITE FOR DYSPLASIA.[facility]pretation [facility] [id number] [place] [id number]: Electronically Signed Out By KM EPSTEIN MD/Jamia the signature on this report, the individual or group listed as making theFinal Interpretation/Diagnosis certifies that they have reviewed this case. Clinical History:Flowers's esophagusSpecimens Submitted As:A: ESOPHAGUS BXS AT 39CM B: ESOPHAGUS BXS AT 37CM C: ESOPHAGUS BXS AT 35CM D: ESOPHAGUS BXS AT 33CM Other Case Numbers [id number] Description:A: Received in formalin, labeled with the patient's name and hospital numberand 1-esophageal bxs @39 cm , are multiple fragments of perdomo, soft tissueaggregating to 0.7 x 0.2 x 0.2 cm. The specimen is submitted in toto in onecassette.ALTB: Received in formalin, labeled with the patient's name and hospital numberand 2-esophageal bxs at 37 cm , are multiple fragments of perdomo, soft tissueaggregating to 0.7 x 0.2 x 0.2 cm. The specimen is submitted in toto in onecassette.ALTC: Received in formalin, labeled with the patient's name and hospital numberand 3-esophageal bxs at 35 cm , are 2 fragments of perdomo, soft tissueaggregating to 0.5 x 0.2 x 0.2 cm. The specimen is submitted in toto in onecassette.ALTD: Received in formalin, labeled with the patient's name and hospital numberand 4-esophageal bxs at 33 cm , are 2 fragments of perdomo, soft tissueaggregating to 0.5 x 0.2 x 0.2 cm. The specimen is submitted in toto in onecassette.ALTalt/06/09 Normal [facility] Comment on above: Performed By: #### [facility] ####[facility] Surgical Pathology [id number] [place] [address] Encounters Encounter Date Encounter Type Care Provider Facility Start: 06-08-2018 End: 06-08-2018 Patient encounter procedure CLAY ORDOÑEZ [facility] Start: 06-08-2018 Patient encounter procedure Clay Ordoñez Facility:[facility] Start: 08-04-2017 End: 08-04-2017 Ambulatory EMILIA [facility] Start: 06-23-2017 End: 06-23-2017 Ambulatory [facility] Start: 06-11-2017 Ambulatory JULISSA MERIDA [facility] Start: 05-18-2017 End: 05-18-2017 Ambulatory [facility] Start: 08-06-2014 End: 08-06-2014 Telephone encounter Mauri Rowell MD Work Phone: General Surgery Comment on above: Schedule Surgery (3- 16 c-scope ASC); Information ( c-scope repeat ) Procedures Date Procedure Procedure Detail Performing Clinician Start: 09-17-2015 Colonoscopy Mauri marquez MD Work Phone: Plan of Treatment Date Care Activity Detail Author Start: 02-26-2021 Influenza vaccination INFLUENZA (Sea son Ended) [facility] Start: 09-16-2020 Screening for malign ant neoplasm of colon [facility] Start: 07-22-2014 PNEUMOVAX AGE 65 AND OVER WITH 5YR LOOKBACK (#1) PNEUMOVAX AGE 65 AND OVER WITH 5YR LOOKBACK (#1) [facility] Start: 07-31-2012 Hepatitis C antibody , confirmatory test DILATED RETINAL EXAM [facility] Start: 06-19-2012 Hepatitis B surface antibody level LDL CHOLESTEROL [facility] Start: 07-22-2010 3 comp foot exam completed DIABETIC FOOT EXAM [facility] Start: 01-08-2010 Hemoglobin A1c/Hemoglobin.total in Blood HBA1C [facility] Start: 2009 ADVANCE DIRECTIVE DISCUSSION ADVANCE DIRECTIVE DISCUSSION [facility] Start: 10-31-2009 Hepatitis B screening URINE AL BUMIN:CREATININE RATIO [facility] Start: 1994 Screening for malign ant neoplasm of colon [facility] Start: 1994 SHINGRIX VACCINE (1 of 2) NI GRIX VACCINE (1 of 2) [facility] Start: 11-07-1963 Urine microalbumin profile DTAP,TDAP ,TD (1 - Tdap) [facility] Start: 1962 HEPATITIS C SCREENING HEPATITIS C SC DENIS [facility] Start: 1956 Adult depression scr eening assessment DEPRESSION SCREENING [facility] Immunizations Immunization Date Immunization Notes Care Provider Katia hunter 07-22-2009 pneumococcal polysaccharide vaccine, 23 valent Mauri Rowell MD Work Phone: [facility] Payers Date Payer Category Payer Unknown FOR LIFE [id number] 2014-Present Indemnity [id number] 2009 Medicare [id number] 2009 Medicare [id number] 1959 [employer] ( and others) [id number] 1959 Medicare [id number] 1944 Unknown [id number] 1944 Unknown [id number] Social History Date Type Detail Facility Start: 08[facility]06-2014 [facility] History of tobacco use Cigarette Smoker C [facility] Start: 08-06-2014 Tobacco use and exposure Never used [facility] Start: 08-06-2014 Alcohol intake Current non-dr premium cancellation clerk of alcohol (finding) [facility] Start: 1945 Sex Assigned At Not on file C [facility] Medical Equipment Procedure Code Equipment Code Equipment Origin al Text Equipment Identifier Dates test sugars once daily Start: 06-05-2008 Comment on above: test sugars once chris ly Note 09-10-2014 Telephone Encounter - Leonela Malone [...] be given this info as well as marine extension agent. Leonela Malone LPN Procedure r/s per office request: scheduling conflict. ASC: Please see updated cure form to reflect 08-31-2014 procedure date. Maryjane Garcia Ma documented in this encounter [facility] Summary Purpose Family History No Family History Records FoundNo Family History Records FoundNo Family History Records FoundNo Family History Records Found Advance Directives Documents on File Type Date Recorded Patient Talcer Expl anation Advance Directive(s) Advance Directive(s) 09/17/2015 5:52 AM Additional Source Comments (unrecognized sect ion and content) No Status Records FoundNo Status Records FoundNo Status Records FoundNo Status Records Found INFORMATION SOURCE (unrecogn ized section and content) DATE CREATED AUTHOR 12/20/2017 [facility] DATE CREATED AUTHOR AUTHOR'S ORGANIZ ATION 12/21/2017 [facility] DATE CREATED AUTHOR AUTHOR'S ORGANIZ ATION 06/15/2018 [facility] DATE CREATED AUTHOR AUTHOR'S ORGANIZ ATION 06/17/2018 [facility] Source Comments (unrecognize d section and content) In the event this informatio n is protected by the Federal Confidentiality of Alcohol and Drug Abuse Patient Records regulations: The Federal rules restrict any use of the information to criminally investigate or prosecute any alcohol or drug abuse patient.[facility] Reason for Visit (unrecogniz ed section and content) Reason Onset Date Comments Schedule Surgery 08/06/2014 3-16 c-scope C Information 08/06/2014 c-scope repeat FOR RECORDS PERTAINING TO PATIENTS WHO ARE [...] BE BASED ON THE PRIMARY CLINICAL RECORDS. [employer] provides no warranty or guarantee of the accuracy or completeness of information in this document.
[2024-04-19 07:50] LABS: Absolute Lymphocyte Count 2.51 X10^3/uL (0.83-4.51); Absolute Neutrophil Count 9.5 X10^3/uL (2.0-7.7); Basophil# 0.13 X10^3/uL; Eosinophil# 0.25 X10^3/uL; Eosinophils% 1.9 % (0-5); Hematocrit 54.8 % (40-54); Hemoglobin 17.6 g/dL (13.0-16.5); Lymphocyte # 2.51 X10^3/ul (0.83-4.51); Lymphocyte % 18.6 % (19-41); Mean Corp Hgb Conc 32.1 g/dL (32-36); Mean Corpuscular Volume 93.5 fL (80-94); Mean Platelet Vol. 10.6 fl (6.2-12.0); Monocyte# 0.83 X10^3/uL; Monocyte% 6.2 % (0-10); NRBC Flagged by Analyzer 0 % (0-5); Neutrophil # 9.48 X10^3/uL (2.7-7.7); Neutrophil % 70.3 % (47-70); Platelet Count 272 K/mm3 (150-450); RBC Distribution Width CV 14.6 % (11.6-14.6); RBC Distribution Width SD 50.4 fl (35.1-43.9); Red Blood Count 5.86 M/mm3 (4.6-6.2); White Blood Count 13.5 K/mm3 (4.4-11.0)
[2024-04-19 08:09] LABS: Hemoglobin A1c 7.4 % (3.8-5.6)
[2024-04-19 08:29] LABS: ALB/GLOB Ratio 0.7 RATIO (0.9-2.4); AST(SGOT) 26 U/L (15-37); Alanine Aminotransfer ALT/SGPT 33 U/L (16-61); Albumin, Serum 3.3 g/dL (3.2-5.0); Alkaline Phosphatase 100 U/L (45-117); Anion Gap 7 (5-15); BUN 14 mg/dL (7-18); BUN/Creat Ratio 10.7 RATIO (10-20); Calcium,Total 8.8 mg/dL (8.5-10.1); Chloride 102 mmol/L (98-107); Cholesterol 153 mg/dL (200); Creatinine, Serum 1.31 mg/dL (0.70-1.30); EST Glomerular Filtration Rate 56 mL/min (>60); Est Glom Filt Rate - Afr Amer 68 mL/min (>60); Globulin 4.5 g/dL (2.2-4.2); Glucose 195 mg/dL (74-106); High Density Lipoprotein 47 mg/dL; Potassium 4.2 mmol/L (3.5-5.1); Protein, Total 7.8 g/dL (6.4-8.2); Sodium Level 136 mmol/L (136-145); Triglycerides 105 mg/dL; Very Low Density Lipoprotein 21 mg/dL (5-40)
== END | disposition home or self-care (01) ==
PROVIDERS: PCP Internal Medicine; Referring Provider Family Medicine; Visit Provider Family Medicine
DX: I10 Essential (primary) hypertension (principal); E11.9 Type 2 diabetes mellitus without complications; E04.9 Nontoxic goiter, unspecified
CPT/HCPCS: 36415; 80053; 80061; 83036; 84443; 85025

== ENCOUNTER → 2024-06-06 | Outpatient (CLI) | payer MEDICARE, OTHER, SELFPAY ==
--- NOTE | 2024-06-06 15:30 | STRESSREP ---
Stress Test Report Pharmacologic myocardial perfusion stress test. 78-year-old male with a history of chest pain Resting EKG demonstrates sinus bradycardia with a first-degree AV block with a rate of 58 bpm. Resting blood pressure is 146/90 mmHg. 0.4 mg of regadenoson was infused per usual protocol followed by rapid intravenous saline flush injection. Continuous EKG monitoring was performed. The maximum heart rate was 72 bpm which was 51% of max impacted heart rate the maximum workload was 1 metabolic equivalent. At rest there were no ST or T wave changes noted to suggest ischemia and at peak infusion nonspecific ST changes were noted which did not meet the criteria for ischemia. No clinical angina is noted. The final blood pressure was 134/72 mmHg. Myocardial perfusion protocol. 14.3 mCi of technetium 99m sestamibi was injected at rest. 0.4 mg of regadenoson was infused per usual protocol. At peak infusion 44.9 mCi of technetium 99m sestamibi was injected stress images were obtained stress and rest images were reconstructed and compared in the short axis vertical long and horizontal long axis. Gated images were also obtained. Perfusion SPECT analysis: Review of the stress images demonstrate normal uptake of tracer noted in all areas of the myocardium. The resting images similar demonstrated normal uptake of tracer noted in all areas of the myocardium. No areas of reversibility are noted to suggest ischemia and no previous infarct is noted. Gated SPECT analysis: The gated ejection fraction is 58%. Conclusion: Normal pharmacologic myocardial perfusion stress test. Preserved ejection fraction.
== END | disposition home or self-care (01) ==
LOC: CVS 06:56
PROVIDERS: PCP Family Medicine; Referring Provider Physician Assistant Medical; Visit Provider Physician Assistant Medical
DX: R07.9 Chest pain, unspecified (principal)
CPT/HCPCS: 78452; 93017; A9500; A4216; J2785

== ENCOUNTER → 2024-06-22 | Outpatient (CLI) | payer MEDICARE, OTHER, SELFPAY | END | disposition home or self-care (01) | LOC: PSN 13:08 | PROVIDERS: PCP Family Medicine; Referring Provider Physician Assistant Medical; Visit Provider Physician Assistant Medical | DX: R00.2 Palpitations (principal) | CPT/HCPCS: 93225; 93226 ==

== ENCOUNTER → 2024-07-25 | Outpatient (CLI) | payer MEDICARE, OTHER, SELFPAY ==
--- NOTE | 2024-07-25 13:10 | CT_ITS ---
PROCEDURE: ABDOMEN/PELVIS WITH CONTRAST REASON FOR EXAM: Hernia. Prior surgery. TECHNIQUE: Abdomen and pelvis CT with intravenous contrast, following the oral administration of contrast materi al. COMPARISON: None. FINDINGS: Lung bases: Trace atelectasis or scarring within the left lung base. Liver: Homogeneous enhancement of the liver. No enhancing masses are seen. Gallbladder: Surgically absent. Spleen: Homogeneous enhancement. Pancreas: 1.1 cm ovoid cystic structure seen within the pancreatic head. No peripancreatic inflammat ory changes are seen. Adrenals: No adrenal masses are identified bilaterally. Kidneys: Bilateral renal cysts, largest is exophytic on the right measures at least 6.1 cm. No calci fications or obstructive uropathy involving the bilateral collecting systems. Bladder: Partially decompressed Reproductive Organs: Unremarkable. Wide mouth ventral hernia, just cephalad to the umbilicus measuring 2.1 cm AP by 9.6 cm transverse by 10.5 cm cc, containing several small bowel loops. No proximal bowel obstruction is identified. Scattered diverticulosis th roughout the large bowel without gross surrounding inflammatory changes. Appendix appears surgically absent. Lymph nodes: No suspicious lymph node enlargement. Vasculature: Vascular calcifications within the abdominal aorta and iliac arteries. No abdominal aor tic aneurysm or dissection is seen. Peritoneum / Retroperitoneum: No ascites. No free air. Bones: Osseous structures are intact. Spondylotic changes involving the lower thoracic spine. Grade 1 anterolisthesis of L4 on L5. No lumbar spine fractures or dislocations are identified. CT/Abdomen/Pelvis WITH Contrast IMPRESSION: 1. Wide mouth ventral hernia, cephalad to the umbilicus measuring 2.1 x 9.6 x 1 0.5 cm, containing several small bowel loops. No proximal bowel obstruction. 2. Scattered diverticulosis throughout the large bowel, without gross surroundi ng inflammatory changes. 3. Appendix is surgically absent. 4. 1.1 cm ovoid cyst within the pancreatic head, which could represent a pancre atic pseudocyst or other cystic neoplasm. Consider nonemergent MRI for further characterization. 5. Bilateral renal cysts, largest on the right measures up to 6.1 cm. Negative for obstructive uropathy bilaterally. 6. Additional findings, as detailed above. One or more dose reduction techniques were used (e.g., Automated exposure contr ol, adjustment of the mA and/or kV according to patient size, use of iterative reconstruction technique). Reading Location: [id number]
[2024-07-25 13:53] LABS: CREATININE FINGERSTICK < 1.0 mg/dL (0.70-1.30); EGFR FINGERSTICK > 60.0000 mL/min (>60)
== END | disposition home or self-care (01) ==
PROVIDERS: PCP Family Medicine; Referring Provider Surgery; Visit Provider Surgery
DX: K43.2 Incisional hernia without obstruction or gangrene (principal); I49.3 Ventricular premature depolarization
CPT/HCPCS: 74177; 93225; 93226; Q9967

== ENCOUNTER → 2024-07-28 | Outpatient (CLI) | payer MEDICARE, OTHER, SELFPAY | END | disposition home or self-care (01) | LOC: SL 20:21 | PROVIDERS: PCP Family Medicine; Referring Provider Nurse Practitioner Acute Care; Visit Provider Nurse Practitioner Acute Care | DX: G47.33 Obstructive sleep apnea (adult) (pediatric) (principal) | CPT/HCPCS: 95810 ==

== ENCOUNTER 2024-08-23 11:47 | Day surgery (SDC) | payer MEDICARE, OTHER, SELFPAY ==
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
[2024-08-23] VITALS (8 sets, daily range): BP systolic 78–131; BP diastolic 53–87; PULSE 65–80; RESP 14–16; TEMP 36.1–36.6; O2SAT 92–99; BMI 29.4
--- NOTE | 2024-08-23 12:43 | HP.PCM_ITS ---
History and Physical Date of Admission: 08/23/24 OFFICE VISIT Date of Service: 07/14/24 MR#: [id number] Acct: [id number] Name: MARY OBREGON Rep #: [id number] : 1945 Provider: Dr. 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 Required: No Is patient in pain?: No Allergies adhesive Allergy (Verified 07/14/24 13:50) HsyzIfzabvw-JVC-SiH Reductase Inhibitor (Pjhmzte-Puo-Ncq Reductase Inhibitor) Adverse Reaction (Intermediate, Verified 07/14/24 13:50) Diarrhealisinopril Adverse Reaction (Verified 07/14/24 13:50) Other Medications ?Medication ?Instructions ?Recorded ?Confirmed ?Type blood-glucose meter (FreeStyle #1 ea 06/02/21 07/14/24 Rx [place] kit) multivitamin 1 tab PO DAILY SUPPLEMENT 08/06/22 07/14/24 History vit C 250 mg-vit E 90 mg-zinc 40 1 tab PO BID SUPPLEMENT 08/06/22 07/14/24 History mg-copper 1 hh-njgbph-clusfb capsule (PreserVision AREDS-2) fluoxetine 20 mg capsule 20 mg PO DAILY #30 caps 05/27/23 07/14/24 Rx FreeStyle Lite Strips (blood sugar #100 ea 06/14/23 07/14/24 Rx diagnostic) lancets 28 gauge (FreeStyle #100 ea 06/14/23 07/14/24 Rx Lancets) losartan 100 mg tablet 100 mg PO DAILY BP #90 tabs 08/16/23 07/14/24 Rx blood-glucose sensor (FreeStyle #2 ea 10/07/23 07/14/24 Rx Fang 3 Sensor device) allopurinol 100 mg tablet 100 mg PO DAILY gout #90 tabs 12/08/23 07/14/24 Rx omeprazole 40 mg capsule,delayed 40 mg PO BID 3 months #180 caps 02/15/24 07/14/24 Rx release sertraline 100 mg tablet 100 mg PO DAILY ANTIDEPPRESSANT 02/16/24 07/14/24 Rx #90 tabs levothyroxine 150 mcg tablet 150 mcg PO DAILY THYROID #90 tabs 03/20/24 07/14/24 Rx amlodipine 10 mg tablet 10 mg PO DAILY for blood pressure 03/27/24 07/14/24 Rx #90 TABLETS empagliflozin 25 mg tablet 25 mg PO DAILY DIABETES #90 tabs 04/11/24 07/14/24 Rx (Jardiance) sitagliptin phos 100 mg-metformin 1 tab PO DAILY blood glucose #90 04/21/24 07/14/24 Rx ER 1,000 mg tablet,extend rel 24h tabs mp (Janumet XR) calcitriol 0.25 mcg capsule 0.25 mcg PO MOWEFR supplement #60 05/16/24 07/14/24 Rx caps budesonide 3 mg 6 mg (2 x 3 mg) PO DAILY #180 ea 06/05/24 07/14/24 Rx capsule,delayed,extended release metoprolol tartrate 25 mg tablet 25 mg PO BID #60 tabs 06/30/24 07/14/24 Rx colestipol 1 gram tablet 1 g PO DAILY #90 tabs 07/04/24 07/14/24 Rx Have you fallen in the past year?: No PFSH Medical History (Updated 07/14/24 @ 18:[address] Juan David Jameson MD) Incisional hernia Hemorrhoids Frequent PVCs Wears hearing aid Wears dentures History of Flowers's esophagus Thyroid disease Acute leg pain Obesity Cardiology follow-up encounter Agent orange exposure Encounter for pre-operative cardiovascular clearance Other acute postprocedural pain Wears glasses DVT (deep venous thrombosis) Injury of head and neck Diverticulosis Former smoker CPAP (continuous positive airway pressure) dependence Shortness of breath on exertion History of irregular heartbeat Left knee DJD Primary osteoarthritis of left knee Polycythemia Segmental and somatic dysfunction of thoracic region Segmental and somatic dysfunction of cervical region Degeneration of intervertebral disc of cervical region Neck pain History of meniscus repair of left knee External bleeding hemorrhoids Internal bleeding hemorrhoids Abnormal neutrophil count Deep vein thrombosis (DVT) of left lower extremity (08/2020) Neuropathy Tinnitus History of goiter Gout cataracts 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 malformation (AVM) Hemangioma Umbilical hernia without mention of obstruction or gangrene Vision loss AMD (age related macular degeneration) Nonobstructive atherosclerosis of coronary artery Essential (primary) hypertension Change in bowel habit Superficial thrombophlebitis of arm Calf tenderness Medial ankle sprain Hematoma Arthritis Surgical History History of colon resection Hx of colonoscopy Hx of transurethral resection of prostate History of total knee arthroplasty History of left knee replacement History of total knee replacement History of cardiac catheterization (2000) History of esophagogastroduodenoscopy (EGD) History of hemorrhoidectomy (~09/2020) Hx of cataract surgery Hx of umbilical hernia repair Hx of bilateral inguinal hernia repair Hx of colonoscopy Hx of rhinoplasty History of prostate surgery History of cholecystectomy History of thyroidectomy History of appendectomy Family History Father Heart disease CAD (coronary artery disease) Sudden cardiac Myocardial infarctionMother Heart disease HypertensionBrother Flowers's esophagus Esophageal cancer Heart disease Sudden cardiac , Onset Age: 72 CAD (coronary artery disease) CVA (cerebral vascular accident) Depression Myocardial infarctionDaughter Flowers's esophagusOther Blindness Social History Smoking Status: Former smoker quit date: 06/28/71 alcohol intake: never substance use type: does not use caffeine: Yes what type of physical activity do you participate in: walking frequency: 1-2 times per week seatbelt use: always HPI HPI HPI: Patient is a 78-year-old male who was previously under the care of Dr. Mauri Rowell before his senior care and presents for both evaluation of a umbilical hernia as well as bleeding hemorrhoids. Mr. Ray presents today with his . He shares that his hernia was first noted approximately 5 months ago. It was noted as merely protrusion and he denies any associated pain. He also denies any negative effects on his bowel habits and states that these have remained consistent since his right hemicolectomy with Dr. Rowell in November 2022. He notes that he remains on budesonide through Dr. Jaosn (microscopic colitis?). Pertinent surgical history includes: Laparoscopic right hemicolectomy 2022, laparoscopic umbilical and bilateral inguinal hernia's 2018, open cholecystectomy 1986, open appendectomy 1966 As above, patient is also presents for bleeding hemorrhoids which she acknowledges have been present for the last 1 year. He states that he underwent stapled hemorrhoidectomy of Dr. Rowell in 2022 following recovery from his right hemicolectomy but then developed recurrent issues. To date, they have tried Tucks pads and Preparation H for the hemorrhoids and they seem to go back in but they continue to bleed. They describe their bowel movements as frequent and loose?experiencing 4-5 stools per day. They do not experience issues with straining. Mr. Ray confirms he underwent a colonoscopy last just before his hemicolectomy in 2022 and estimates it was completed August 2022. He further adds that he is diagnosed with Flowers's esophagus and undergoes routine surveillance EGD for this issue. He estimates his next EGD will be due in a year. ROS General General: Yes fatigue; No weight change, appetite, colon cancer, breast cancer or weakness HEENT HEENT: Yes eye injury and eye surgery; No difficulty swallowing, swollen glands or hoarseness Endo Endocrine: Yes thyroid disease and diabetes mellitus; No thyroid cancer, Hair loss, heat intolerance or cold intolerance Skin Skin: No rash or changing moles Breast Breast: No left breast lump, right breast lump, nipple discharge, breast pain, abnormal mammogram, abnormal US or breast enlargement Musc Musculoskeletal: Yes arthritis and gout; No back problems, rheumatoid arthritis or joint pain Cardio Cardiovascular: Yes high blood pressure; No murmur, pacemaker, heart disease, atrial fibrillation, heart attack, heart stent, palpitations, shortness of breat with exertion or chest pain Psych Psychiatric: No depression, anxiety or hearing voices Resp Respiratory: Yes shortness of breath, Yes sleep apnea, No cough, No COPD, No asthma, No emphysema and No wheezing Gastro Gastrointestinal: No abdominal pain, No nausea or vomiting, Yes diarrhea, No constipation, No blood in stool, Yes acid reflux, Yes hemorrhoids, No ulcers, No gallbladder problem and No black,tarry stools Aaron Hematologic: No blood thinners, No blood disorders, No bleeding, No anemia and No blood clots Neuro Neurologic: No system reviewed and no additional complaints, except as documented, No as per HPI, No abnormal gait, No abnormal hearing, No abnormal movements, No abnormal speech, No behavioral changes, No burning sensations, No confusion, No convulsions, No disequilibrium, No dizziness, No localized weakness, No frequent falls, No headache(s), No lack of coordination, No loss of vision, No memory loss, No numbness, No other visual disturbances, No radicular pain, No restless legs, No sensory deficit, No syncope, No tingling, No tremor(s), No weakness and No other Exam Const General: cooperative, comfortable and well developed Orientation: alert, awake and oriented x3 Resp Effort & Inspection: normal respiratory effort GI Other: Well-healed right upper quadrant transverse incision consistent with history of prior open cholecystectomy Supraumbilical laparotomy incision which bulges when patient is asked to flex his abdominal wall and hernia defect is palpable estimated at 8 x 6 cm. There is minimal tenderness Scarring across lower abdomen?consistent with open appendectomy on the right Anorectal exam is performed and there is minimal skin tag. A small external hemorrhoid is found associated with a engorged right anterior hemorrhoid. Assessment and Plan Assessment and Plan (1) Incisional hernia: Status: Acute Comment: Patient presents with a incisional (rather than umbilical) hernia related to his last surgical operation?his laparoscopic assisted right hemicolectomy. He denies any issues with healing immediately postop and only perceive this hernia in the last 5 months. It does not cause him any pain and does not appear to affect his bowels. It is rather large in size and I am concerned that based on this size and his prior surgical history it may not be amenable to simple closure with mesh backing and may in fact require some advanced hernia repair techniques. Will plan to image with CT abdomen pelvis to determine if it is amenable to repair here through [facility] or patient requires referral to tertiary center. Plan: ? CT imaging of the abdomen pelvis with p.o. and IV contrast to better characterize hernia (2) Hemorrhoids: Status: Acute Comment: Patient describes recurrence of hemorrhoids with bleeding. He previously underwent stapled hemorrhoidectomy with Dr. Rowell in late 2022 but does have an issue with bowel movement frequency. On exam he appears to have an engorged right anterior column with small external component. I suggested that since it is almost 2 years since his last colonoscopy that I would recommend repeat colonoscopy and consideration of endoscopic banding since this would appear to represent a grade 2 hemorrhoid. Mr. Ray is receptive. He is well versed in the need for prep for colonoscopy given his history. Plan: Plan will be to complete diagnostic colonoscopy with possible hemorrhoid banding on first mutually agreeable date under local MAC. Pre-procedure prep discussed and paper instructions provided. Patient is also made aware that he will need to have a set key driver with him the day of the procedure. I have examined the patient and the H&P has been reviewed. There are no clinical changes since date of exam. Patient confirms that he completed prep for today's procedure and his output is now clear. He denies any bleeding through this prep. Further, he adds he is awaiting an appointment to address his ventral hernia at [facility] next week. Will now proceed to endoscopy suite for c olonoscopy with possible hemorrhoid banding as scheduled.
--- NOTE | 2024-08-23 12:50 | PCM.PRE.AN2 ---
ASA Classification* ASA Classification ASA Classification: 3 Assessment & Plan Anesthesia* Anesthesia Assessment Anesthesia Assessment: Discussed sedation and/or anesthesia options, risks, benefits, and alternatives with patient/parents/legal guardian/POA. Questions invited. The patient/parents/legal guardian/POA seems to understand and agrees to proceed with anesthesia plan. Reviewed the physical assessment, medical history, allergy history and patient home medications list prior to surgery/procedure/anesthetic and documented any changes. Performed airway and anesthesia risk assessments. Anesthesia Type Anesthesia Type: MAC History Source History Obtained from:: Patient and Chart Anesthesia Focused Assessment* Temperature: 97.0 F Pulse Rate: 65 Blood Pressure: 131/87 Respiratory Rate: 16 Pulse Ox: 99 Oxygen Delivery Method: Room Air Airway Assessment Mouth opens: >3 cm Mallampati Score: II Teeth Condition: Intact Neck Range of motion (ROM): Full ROM Focused Labs Anesthesia Preop lab: CBC WBC 13.7 K/mm3 (4.4-11.0) H 05/24/24 12:39 05/24/24 RBC 5.46 M/mm3 (4.6-6.2) 05/24/24 12:39 05/24/24 Hgb 16.9 g/dL (13.0-16.5) H 05/24/24 12:39 05/24/24 Hct 50.4 % (40-54) 05/24/24 12:39 05/24/24 Plt Count 254 K/mm3 (150-450) 05/24/24 12:39 05/24/24 CHEMISTRY Potassium 4.0 mmol/L (3.5-5.1) 05/24/24 12:39 05/24/24 Sodium 135 mmol/L (136-145) L 05/24/24 12:39 05/24/24 Magnesium 2.4 mg/dL (1.6-2.6) 11/16/22 08:19 11/16/22 BUN 14 mg/dL (7-18) 05/24/24 12:39 05/24/24 Creatinine 1.25 mg/dL (0.70-1.30) 05/24/24 12:39 05/24/24 Glucose 245 mg/dL (74-106) H 05/24/24 12:39 05/24/24 POC Glucose 197 mg/dL (74-106) H 08/23/24 12:12 08/23/24 TSH 1.640 uIU/mL (0.358-3.740) 04/19/24 07:22 04/19/24 COAG PT 12.8 SECONDS (11.7-14.9) 11/11/20 07:01 11/11/20 Pre-Assessment Diagnosis/Proposed Procedure Planned Operative Procedure(s): Colonoscopy Anesthesia History 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 When Was Last Pacemaker Check QUESTION #4 FULL TEXT: You/Your Family Experience fever (hyperthermia) with Anesthesia Last Oral Intake Last Oral intake: Last Oral Intake NPO since 08:30 08/23/24 12:15 Meds taken in AM with sips of Yes 08/23/24 12:15 water? 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 Female No 08/14/24 13:42 HX of Motion Sickness No 08/14/24 13:42 HX of N/V After Surgery No 08/14/24 13:42 Non-Smoker Yes 08/14/24 13:42 Duration of Surgery greater No 08/14/24 13:42 than 60 minutes Number of Risk Factors 1 08/14/24 13:42 PONV Score Low Risk 08/14/24 13:42 Height & Weight Height & Weight: Anesthesia: Height & Weight Height 5 ft 10 in 08/23/24 12:15 Weight: 93 kg 08/23/24 12:15 Body Mass Index (BMI) 29.4 08/23/24 12:15 Respiratory Assessment Respiratory Assessment - 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 Has anyone observed you stop breathing during sleep? STOP Results Positive 08/14/24 13:42 QUESTION #5 FULL TEXT : Do you snore loudly (louder than talking or can be heard through closed doors)? 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 Specify any problems Hx of Preganancy in last 3 N/A 08/14/24 13:42 Months Nurse Filling Out Transfusion MGRIFFITH 08/14/24 13:42 & Questions: Date: 08/14/24 08/14/24 13:42 Time: 13:43 08/14/24 13:42 Patient unable to answer at this time (ie. 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: /Reproductive Hx- journeyman pipe welder Hx Now Gestational Age (in weeks): EDC: Hx Hx Para Hx Section SAB No 08/14/24 13:42 PFSH Medical History High cholesterol Easy bruising Gastric reflux History of echocardiogram History of stress test History of Holter monitoring Incisional hernia Hemorrhoids Frequent PVCs Wears hearing aid History of Flowers's esophagus Thyroid disease Acute leg pain Obesity Cardiology follow-up encounter Agent orange exposure Encounter for pre-operative cardiovascular clearance Other acute postprocedural pain Wears glasses DVT (deep venous thrombosis) Injury of head and neck Diverticulosis Former smoker CPAP (continuous positive airway pressure) dependence Shortness of breath on exertion History of irregular heartbeat Left knee DJD Primary osteoarthritis of left knee Polycythemia Segmental and somatic dysfunction of thoracic region Segmental and somatic dysfunction of cervical region Degeneration of intervertebral disc of cervical region Neck pain History of meniscus repair of left knee External bleeding hemorrhoids Internal bleeding hemorrhoids Abnormal neutrophil count Deep vein thrombosis (DVT) of left lower extremity (08/2020) Neuropathy Tinnitus History of goiter Gout cataracts 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 malformation (AVM) Hemangioma Umbilical hernia without mention of obstruction or gangrene Vision loss AMD (age related macular degeneration) Nonobstructive atherosclerosis of coronary artery Essential (primary) hypertension Change in bowel habit Superficial thrombophlebitis of arm Calf tenderness Medial ankle sprain Hematoma Arthritis Home Medications ?Medication ?Instructions ?Recorded ?Last Taken ?Type blood-glucose meter (FreeStyle #1 ea 06/02/21 Unknown Rx [place] kit) vit C 250 mg-vit E 90 mg-zinc 40 1 tab PO BID SUPPLEMENT 08/06/22 08/22/24 History mg-copper 1 br-jrulxl-dxwvyh capsule (PreserVision AREDS-2) fluoxetine 20 mg capsule 20 mg PO DAILY #30 caps 05/27/23 08/22/24 Rx FreeStyle Lite Strips (blood sugar #100 ea 06/14/23 Unknown Rx diagnostic) lancets 28 gauge (FreeStyle #100 ea 06/14/23 Unknown Rx Lancets) losartan 100 mg tablet 100 mg PO DAILY BP #90 tabs 08/16/23 08/23/24 Rx blood-glucose sensor (FreeStyle #2 ea 10/07/23 Unknown Rx Fang 3 Sensor device) allopurinol 100 mg tablet 100 mg PO DAILY gout #90 tabs 12/08/23 08/22/24 Rx omeprazole 40 mg capsule,delayed 40 mg PO BID 3 months #180 caps 02/15/24 08/22/24 Rx release sertraline 100 mg tablet 100 mg PO DAILY ANTIDEPPRESSANT 02/16/24 08/22/24 Rx #90 tabs levothyroxine 150 mcg tablet 150 mcg PO DAILY THYROID #90 tabs 03/20/24 08/22/24 Rx amlodipine 10 mg tablet 10 mg PO DAILY for blood pressure 03/27/24 08/23/24 Rx #90 TABLETS sitagliptin phos 100 mg-metformin 1 tab PO DAILY blood glucose #90 04/21/24 08/13/24 Rx ER 1,000 mg tablet,extend rel 24h tabs mp (Janumet XR) calcitriol 0.25 mcg capsule 0.25 mcg PO MOWEFR supplement #60 05/16/24 08/21/24 Rx caps budesonide 3 mg 6 mg (2 x 3 mg) PO DAILY #180 ea 06/05/24 08/22/24 Rx capsule,delayed,extended release metoprolol tartrate 25 mg tablet 25 mg PO BID #60 tabs 06/30/24 08/23/24 Rx empagliflozin 25 mg tablet 25 mg PO DAILY DIABETES #90 tabs 08/07/24 08/13/24 Rx (Jardiance) colestipol 1 gram tablet 1 g PO QHS 08/14/24 08/22/24 History Allergy/AdvReac Type Severity Reaction Status Date / Time adhesive Allergy Rash Verified 08/23/24 12:13 Fwdjvvh-EIE-DvR Reductase AdvReac Intermediate Diarrhea Verified 08/23/24 12:13 Inhibitor (Vppfytc-Sbr-Awr Reductase Inhibitor) lisinopril AdvReac Other Verified 08/23/24 12:13 Family History Father Heart disease CAD (coronary artery disease) Sudden cardiac Myocardial infarction Mother Heart disease Hypertension Brother Flowers's esophagus Esophageal cancer Heart disease Sudden cardiac , Onset Age: 72 CAD (coronary artery disease) CVA (cerebral vascular accident) Depression Myocardial infarction Daughter Flowers's esophagus Other Blindness Surgical History History of eye surgery History of colon resection Hx of colonoscopy Hx of transurethral resection of prostate History of total knee arthroplasty History of left knee replacement History of total knee replacement History of cardiac catheterization (2000) History of esophagogastroduodenoscopy (EGD) History of hemorrhoidectomy (~09/2020) Hx of cataract surgery Hx of umbilical hernia repair Hx of bilateral inguinal hernia repair Hx of colonoscopy Hx of rhinoplasty History of prostate surgery History of cholecystectomy History of thyroidectomy History of appendectomy Social History Smoking Status: Former smoker quit date: 06/28/71 alcohol intake: never substance use type: does not use caffeine: Yes what type of physical activity do you participate in: walking frequency: 1-2 times per week seatbelt use: always Review of Systems (Anesthesia) ROS Narrative System reviewed and no additional complaints, except as documented. Physical Exam Const alert and oriented x3 Neuro oriented x3 and moves all extremities
[2024-08-23 12:54] LABS: Bedside Glucose 197 mg/dL (74-106)
--- NOTE | 2024-08-23 13:00 | COLBX_PTH ---
PATIENT: MARY OBREGON LOC: EN U#:[id number] AGE/SX: 78/M ROOM: RE08/23/[address]: Dr. Juan David Jameson MD : 1945 BED: DIS: 08/23/2024 SPEC #: [id number] RECD: 08/23/24 14:49 STATUS: GEORGE [facility] #: [id number] ARA: 08/23/24 13:[address]: Juan David Jameson DEPT: SURGICAL PATHOLOGY RECD BY: Nancy Spicer ENTERED: 08/23/24 15:01 SP TYPE: COLON BX OTHR DR: Cem Perea MD Tissues: Sigmoid colon biopsy Procedures: Surgery Specimen Level IV HEADER OPERATION: Colonoscopy with hemorrhoid banding and biopsy PRE-OP DIAGNOSIS: TISSUE SUBMITTED: Sigmoid mucosal ulceration MICROSCOPIC DIAGNOSIS Sigmoid mucosal ulceration, biopsy: Fragments of tubular adenoma. 08/24/2024 COMMENT Correlation with clinical, endoscopic findings and appropriate follow up are necessary. MICROSCOPIC DESCRIPTION Slides are reviewed. GROSS DESCRIPTION Received in fixative is one container labeled with the patient's name and designated Sigmoid mucosal ulceration. The specimen consists of two irregular fragments of light perdomo soft tissue that measures 0.3 x 0.2 x 0.2 cm. The specimen is totally submitted in one cassette. 08/23/2024 TC:1 CPT:24218
--- NOTE | 2024-08-23 14:09 | OP.COLON_ITS ---
Patient Name: Koffi Carranza Procedure Date: 08/23/2024 11:11 AM Date of : 1945 Age: 78 Procedure: Colonoscopy Indications: Rectal bleeding Providers: Juan David Jameson MD Referring MD: Cem Perea Md Medicines: See the Anesthesia note for documentation of the administered medications Patient Profile: Last Colonoscopy: within the past 3 years. Complications: No immediate complications. Estimated blood loss: Minimal. Procedure: Pre-Anesthesia Assessment: - The heart rate, respiratory rate, oxygen saturations, blood pressure, adequacy of pulmonary ventilation, and response to care were monitored throughout the procedure. After I obtained informed consent, the scope was passed under direct vision. Throughout the procedure, the patient's blood pressure, pulse, and oxygen saturations were monitored continuously. The Colonoscope was introduced through the anus and advanced to the ileocolonic anastomosis. The colonoscopy was technically difficult and complex due to multiple diverticula in the colon, poor bowel prep with stool present, significant looping and a tortuous colon. Successful completion of the procedure was aided by changing the patient to a supine position, withdrawing and reinserting the scope, straightening and shortening the scope to obtain bowel loop reduction, using scope torsion and applying abdominal pressure. The patient tolerated the procedure fairly well. The quality of the bowel preparation was poor. Scope In: 1:03:35 PM Scope Withdrawal Time 0 hours 18 minutes 9 seconds Scope Out: 1:50:47 PM Total Procedure Duration Time 0 hours 47 minutes 12 seconds Findings: Skin tags were found on perianal exam. The digital rectal exam findings include decreased sphincter tone. Many small and large-mouthed diverticula were found in the entire colon. No biopsies or other specimens were collected for this exam. Nonbleeding ulcerated mucosa with no stigmata of recent bleeding were present in the proximal sigmoid colon. Biopsies were taken with a cold forceps for histology. Estimated blood loss was minimal. Internal hemorrhoids were found during retroflexion. The hemorrhoids were Grade I (internal hemorrhoids that do not prolapse). The endoscope was withdrawn. One band was successfully placed. There was no bleeding at the end of the procedure. Estimated blood loss: none. Impression: - Preparation of the colon was poor. - Perianal skin tags found on perianal exam. - Decreased sphincter tone found on digital rectal exam. - Diverticulosis in the entire examined colon. No specimens collected. - Mucosal ulceration. Biopsied. - Internal hemorrhoids. Banded. Recommendation: - Resume previous diet today. - No aspirin, ibuprofen, naproxen, or other non-steroidal anti-inflammatory drugs for 2 days after biopsy. - Await pathology results. - Repeat colonoscopy in 1 year for surveillance. - Telephone my office for pathology results in 1 week. Procedure Code(s): --- Professional --- 08362, Colonoscopy, flexible; with biopsy, single or multiple 77534, Hemorrhoidectomy, internal, by rubber band ligation(s) Diagnosis Code(s): --- Professional --- K64.0, First degree hemorrhoids K62.89, Other specified diseases of anus and rectum K63.3, Ulcer of intestine K64.4, Residual hemorrhoidal skin tags K62.5, Hemorrhage of anus and rectum K57.30, Diverticulosis of large intestine without perforation or abscess without bleeding CPT copyright 2021 [employer]. All rights reserved. The codes documented in this report are preliminary and upon certified coder review may be revised to meet current compliance requirements. Juan David Jameson MD 08/23/2024 2:08:31 PM This report has been signed electronically. Number of Addenda: 0 Note Initiated On: 08/23/2024 11:11 AM
--- NOTE | 2024-08-23 14:09 | OP.CCLET_ITS ---
08/23/2024 Cem Perea Md Re : Colonoscopy procedure for Koffi Carranza Dear Brit This procedure was performed on Friday, August 23, 2024. My impressions and recommendations are as follows: Impressions : - Preparation of the colon was poor. - Perianal skin tags found on perianal exam. - Decreased sphincter tone found on digital rectal exam. - Diverticulosis in the entire examined colon. No specimens collected. - Mucosal ulceration. Biopsied. - Internal hemorrhoids. Banded. Recommendations : - Resume previous diet today. - No aspirin, ibuprofen, naproxen, or other non-steroidal anti-inflammatory drugs for 2 days after biopsy. - Await pathology results. - Repeat colonoscopy in 1 year for surveillance. - Telephone my office for pathology results in 1 week. My findings are described in the full procedure note, which is enclosed. If I can be of further assistance, please feel free to contact me at Doctor phone number(s): , Work: . Sincerely, Juan David Jameson MD 08/23/2024 2:08:31 PM This report has been signed electronically.
--- NOTE | 2024-08-23 14:14 | PCM.POST.ANE ---
Anesthesia: Postop Eval I Current Vital Signs Temperature: 97.8 F Pulse Rate: 78 Blood Pressure: 93/65 Respiratory Rate: 14 Pulse Ox: 92 Oxygen Delivery Method: Nasal Cannula Oxygen Flow Rate (L/min): 3 Assessment Airway patent: Yes Spontaneous unlabored respirations: Yes Mental status: Awake and Calm nausea: No Vomiting: No Anesthesia Complication: Yes Anesthesia Complication Comment:: bradycardia tx with glyco. and ephedrine Fluid Hydration Crystalloid volume administer (ml): 90 Total IV fluid infused: 90 Progress Note Anesthesia document: Postop Eval 1 completed: Yes
--- NOTE | 2024-08-23 15:48 | PCM.POSTANE2 ---
Anesthesia Postop Eval I Sum Postop Eval Completion status Anesthesia document: Postop Eval 1 completed: Yes Anesthesia Postop Eval I Summary Anesthesia Postop Eval I Summary: Anesthesia Postop Eval I: Assessment Summary Airway patent Yes 08/23/24 14:15 [email or web address] Spontaneous unlabored Yes 08/23/24 14:15 [email or web address] respirations Mental status Awake,Calm 08/23/24 14:15 [email or web address] nausea No 08/23/24 14:15 [email or web address] Vomiting No 08/23/24 14:15 [email or web address] Anesthesia Postop Eval I: Fluid Summary Crystalloid volume administer 90 08/23/24 14:15 [email or web address] (ml) Colloids volume administered ( ml) Blood Product volume administered (ml) Total IV fluid infused 90 08/23/24 14:15 [email or web address] Anesthesia Postop Eval I: Summary Notes Anesthesia Complication Yes 08/23/24 14:15 [email or web address] Anesthesia Complication bradycardia tx 08/23/24 14:15 [email or web address] Comment: with glyco. and ephedrine Post-operative progress note Anesthesia: Postop Eval II Evaluation Mental status: Awake and Calm Pain Level: 4 nausea: No Vomiting: No Complications Anesthesia Complication: No
== END 2024-08-23 15:04 | disposition home or self-care (01) ==
LOC: EN 11:47 → AC 11:50
PROVIDERS: PCP Family Medicine; Referring Provider Family Medicine; Visit Provider Surgery
PROC: 0DJD8ZZ Inspection of Lower Intestinal Tract, Via Natural or Artificial Opening Endoscopic (ICD-10-PCS; CPT 45378; principal; 2024-08-23 12:55)
DX: D12.5 Benign neoplasm of sigmoid colon (principal); E11.42 Type 2 diabetes mellitus with diabetic polyneuropathy; K57.30 Diverticulosis of large intestine without perforation or abscess without bleeding; Z80.0 Family history of malignant neoplasm of digestive organs; K43.2 Incisional hernia without obstruction or gangrene; K64.0 First degree hemorrhoids; Z87.891 Personal history of nicotine dependence; I25.10 Atherosclerotic heart disease of native coronary artery without angina pectoris; K64.4 Residual hemorrhoidal skin tags; I10 Essential (primary) hypertension; E03.9 Hypothyroidism, unspecified; K63.3 Ulcer of intestine; Z79.899 Other long term (current) drug therapy; E78.00 Pure hypercholesterolemia, unspecified; Z79.890 Hormone replacement therapy; Z79.84 Long term (current) use of oral hypoglycemic drugs
CPT/HCPCS: 45380; 46221; 82962; 88305; A4216; J2405

== ENCOUNTER → 2024-09-07 | Outpatient (CLI) | payer MEDICARE, OTHER, SELFPAY | END | disposition home or self-care (01) | LOC: LAB 14:30 | PROVIDERS: PCP Family Medicine; Referring Provider Internal Medicine Gastroenterology; Visit Provider Internal Medicine Gastroenterology | DX: E11.43 Type 2 diabetes mellitus with diabetic autonomic (poly)neuropathy (principal); K31.84 Gastroparesis | CPT/HCPCS: 36415; 83036 ==

== ENCOUNTER → 2024-11-15 | Outpatient (CLI) | payer MEDICARE, OTHER, SELFPAY ==
[2024-11-15 10:52] LABS: Basophil% 0.8 % (0-1); Eosinophils% 0.6 % (0-5); Hematocrit 52.9 % (40-54); Hemoglobin 17.5 g/dL (13.0-16.5); Lymphocyte % 20.8 % (19-41); Mean Corp Hgb Conc 33.1 g/dL (32-36); Mean Corpuscular Hgb 31.4 pg (27.0-32.0); Mean Corpuscular Volume 94.8 fL (80-94); Mean Platelet Vol. 11.2 fl (6.2-12.0); Neutrophil % 70.6 % (47-70); Platelet Count 292 K/mm3 (150-450); RBC Distribution Width CV 14.2 % (11.6-14.6); RBC Distribution Width SD 49.8 fl (35.1-43.9); Red Blood Count 5.58 M/mm3 (4.6-6.2); White Blood Count 13.8 K/mm3 (4.4-11.0)
[2024-11-15 10:53] LABS: Absolute Lymphocyte Count 2.87 X10^3/uL (0.83-4.51); Absolute Neutrophil Count 9.7 X10^3/uL (2.0-7.7); Basophil# 0.11 X10^3/uL; Eosinophil# 0.08 X10^3/uL; Lymphocyte # 2.87 X10^3/ul (0.83-4.51); Monocyte# 0.83 X10^3/uL; NRBC Flagged by Analyzer 0 % (0-5); Neutrophil # 9.71 X10^3/uL (2.7-7.7)
[2024-11-15 12:13] LABS: AST(SGOT) 23 U/L (<=37); Alanine Aminotransfer ALT/SGPT 20 U/L (<=46); Albumin, Serum 4.1 g/dL (3.4-4.8); Alkaline Phosphatase 109 U/L (40-129); Anion Gap 12 (5-15); BUN 23 mg/dL (4-19); BUN/Creat Ratio 20.1 RATIO (10-20); Calcium,Total 9.4 mg/dL (7.6-11.0); Carbon Dioxide 24.2 mmol/L (21.0-32.0); Chloride 101 mmol/L (98-108); Cholesterol 154 mg/dL (<=200); Creatinine, Serum 1.13 mg/dL (0.70-1.20); EST Glomerular Filtration Rate 66 (>60); Glucose 150 mg/dL (70-99); High Density Lipoprotein 42 mg/dL; Low Density Lipoprotein Calc. 94 mg/dL; PSA,Total - Annual Screen 0.14 ng/mL (0.02-4.00); Potassium 4.7 mmol/L (3.3-5.1); Protein, Total 8.1 g/dL (5.9-8.4); Sodium Level 137 mmol/L (133-145); Thyroid Stim Hormone (TSH) 0.083 uIU/mL (0.300-4.200); Total Bilirubin 0.84 mg/dL (0.00-1.30); Triglycerides 89 mg/dL; Very Low Density Lipoprotein 18 mg/dL (5-40); Vitamin D,25 Hydroxy 35.6 ng/mL (30-100); cholesterol:hdl ratio screen 3.68
[2024-11-15 14:19] LABS: Microalbumin,Random Urine < 12.0 mg/L (NO RANGE EST.); Microalbumin:Creatinine Ratio UNABLE TO CALCULATE mg/g CRE
== END | disposition home or self-care (01) ==
LOC: LAB 09:32
PROVIDERS: PCP Family Medicine; Visit Provider Nurse Practitioner Family
DX: Z12.5 Encounter for screening for malignant neoplasm of prostate (principal); E11.42 Type 2 diabetes mellitus with diabetic polyneuropathy; E55.9 Vitamin D deficiency, unspecified
CPT/HCPCS: 36415; 80053; 80061; 82043; 82306; 82570; 84153; 84443; 85025; G0103